=== PATIENT | male | born 1945 | race Caucasian/White ===

== ENCOUNTER → 2017-12-15 | Day surgery (SDC) | payer OTHER, SELFPAY | END | disposition home or self-care (01) | PROVIDERS: PCP Family Medicine; Visit Provider Surgery ==

== ENCOUNTER → 2018-08-04 07:59 | Outpatient (CLI) | payer OTHER, SELFPAY ==
[2018-08-04 08:17] LABS: Add Manual Diff / Slide Review NO; Basophils Percent Auto 0.9 % (0-2); Eosinophils Percent Auto 5.2 % (2-4); Hematocrit 48.1 % (41-53); Hemoglobin 16.1 g/dL (13.5-17.5); Lymphocytes Percent Auto 21.9 % (25-40); Mean Corpuscular HGB Conc 33.6 % (30-36); Mean Corpuscular Hemoglobin 31.4 PG (26-34); Mean Corpuscular Volume 93.6 fL (80-100); Monocytes Percent Auto 12.1 % (3-14); Neutrophils Absolute Auto 3800 /uL (3000-5900); Neutrophils Percent Auto 59.9 % (50-75); Platelet Count 248 X10^3/uL (150-400); Red Blood Cell Count 5.14 X10^6/uL (4.5-5.9); Red Cell Distribution Width 13.8 % (11.6-14.8); White Blood Cell Count 6.3 X10^3/uL (4.5-11.0)
[2018-08-04 09:18] LABS: HEMOLYSIS < 15 (0-50)
[2018-08-04 09:27] LABS: Alanine Aminotransferase 60 IU/L (21-72); Albumin 4.2 g/dL (3.5-5.0); Albumin Globulin Ratio 1.2 (1.0-2.8); Alkaline Phosphatase 132 U/L (38-126); Aspartate Aminotransferase 67 IU/L (17-59); BUN Creatinine Ratio 19.2 (6-22); Bilirubin Total 0.7 mg/dL (0.2-1.3); Blood Urea Nitrogen 23 mg/dL (9-20); Calcium 9.6 mg/dL (8.4-10.2); Carbon Dioxide 33 mmol/L (22-32); Chloride 102 mmol/L (98-107); Estimated Glomerular Filt Rate 59.2 mL/min (>60); Globulin 3.5 g/dL (1.7-4.1); Glucose 97 mg/dL (80-110); Potassium 4.8 mmol/L (3.4-5.1); Sodium 144 mmol/L (137-145); Total Protein 7.7 g/dL (6.3-8.2)
[2018-08-04 10:01] LABS: Thyroid Stimulating Hormone 1.52 uIU/mL (0.47-4.68)
== END ==
PROVIDERS: Visit Provider Registered Nurse
DX: R23.2 Flushing (principal)
CPT/HCPCS: 36415; 80053; 84403; 84443; 85025

== ENCOUNTER → 2018-08-07 08:03 | Outpatient (CLI) | payer OTHER, SELFPAY ==
[2018-08-10 12:48] LABS: 5-HIAA, Urine 9.5 mg/24 h (< OR = 6.0); Total Volume 1700 mL
== END ==
PROVIDERS: Visit Provider Registered Nurse
DX: R23.2 Flushing (principal)
CPT/HCPCS: 82570; 83497

== ENCOUNTER → 2018-08-22 08:10 | Outpatient (CLI) | payer OTHER, SELFPAY ==
--- NOTE | 2018-08-22 08:11 | DI.US.S_ITS ---
PROCEDURE: US ABDOMEN COMPLETE INDICATIONS: Follow-up CT abnormality TECHNIQUE: Real-time scanning was performed of the abdominal and retroperitoneal organs, with image documentation. COMPARISON: [facility], CT, ABDOMEN WITH CONTRAST, 11/22/2017, 10:25. [facility], CT, ABDOMEN/PELVIS WITH CONTRAST, 04/13/2017, 10:13. FINDINGS: Liver: Liver is normal in size. There is a 1.1 x 1.2 x 1.1 cm hyperechoic nodule in the left hepatic lobe, compatible with a hepatic hemangioma. Gallbladder: No gallstones. No gallbladder wall thickening, pericholecystic fluid or sonographic Tapia's sign. Biliary ducts: Intrahepatic bile ducts are non-dilated. Extrahepatic bile duct caliber measures 6 mm. Normal is 6-7 mm or less in diameter, or 10 mm or less post-cholecystectomy. Pancreas: Visualized portions of the pancreas are sonographically normal. Spleen: Spleen is normal in size and homogeneous in echotexture. Kidneys: There is a cortical cyst in the superior pole of the right kidney measuring 2.2 x 1.7 x 1.8 cm. This correlates with CT finding of a low density mass in the sme area. A 1.2 x 1.6 cm cyst is noted in the mid right kidney. There is a 2.2 x 2.5 cm exophytic cyst in the superior pole of the left kidney. Kidneys are normal in size and echotexture. Right kidney measures 11.6 cm long; left kidney measures 9.5 cm long. No hydronephrosis or nephrolithiasis. No solid masses. Aorta: Visualized aorta is normal in caliber at less than 3 cm. Iliacs: Proximal common iliac arteries are normal in caliber at less than 2.5 cm. IVC: Intrahepatic inferior vena cava is patent. Miscellaneous: No free abdominal fluid. IMPRESSION: 1. A 1.1 x 1.2 x 1.1 cm hyperechoic nodule in the left hepatic lobe. In a patient without known disease, it is compatible with a hepatic hemangioma. This likely correlates with CT finding of an enhancing nodule in the left hepatic lobe. The size of the nodule measures smaller on CT compared to ultrasound (7mm vs. 12 mm), which may be related to the timing of contrast enhancement. A followup ultrasound is suggested in 3-6 months. 2. The low density nodule in the superior pole the right kidney seen on CT is consistent with a cyst seen on ultrasound. Several other renal cysts are noted. Dictated by: Nathalie Tolbert M.D. on 08/22/2018 at 11:41 Approved by: Nathalie Tolbert M.D. on 08/22/2018 at 11:56
== END ==
PROVIDERS: Visit Provider Registered Nurse
DX: K76.89 Other specified diseases of liver (principal); N28.1 Cyst of kidney, acquired
CPT/HCPCS: 76700

== ENCOUNTER → 2019-01-01 09:37 | Outpatient (CLI) | payer MEDICARE, SELFPAY ==
--- NOTE | 2019-01-01 | DI.MRI.S_ITS ---
PROCEDURE: MR LUMBAR SPINE WO CON INDICATIONS: LUMBAR RADICULOPATHY TECHNIQUE: Noncontrast sagittal T1 spin echo and T2 fast echo, sagittal STIR, axial T1 and T2 fast spin echo through the lumbar spine. In cases with scoliosis, additional coronal T2 fast spin echo may be performed. COMPARISON: [facility], MR, L-SPINE WITHOUT CONTRAST, 04/07/2017, 20:00. FINDINGS: Image quality: Excellent. Alignment and Curvature: There is normal bony alignment. Bone Marrow: There are degenerative endplate signal changes scattered in lumbar spine. No acute vertebral body compression fractures. Spinal Cord: Conus medullaris terminates at the L1-L2 level. Visualized cord demonstrates normal signal and size. Paraspinous Soft Tissues: No paravertebral masses. There are bilateral renal cysts. L1-L2: Moderate loss of disc height and disc desiccation. There is circumferential posterior disc bulge. The central canal is mildly narrowed, unchanged. Moderate to severe bilateral foraminal stenosis, mildly increased compared to the last exam. L2-L3: Severe loss of disc height and disc desiccation. There is diffuse posterior disc bulge and disc osteophyte complex. The central canal is moderately narrowed. Moderate bilateral foraminal stenosis. There is no significant change from the last exam. L3-L4: Preserved disc height. Moderate disc desiccation. There is diffuse posterior disc bulge and disc osteophyte complex. Mild bilateral facet arthropathy and hypertrophy of ligamentum flavum. The central canal is moderately narrowed. Severe left and moderate right foraminal stenosis. There is no significant change from the last exam. L4-L5: Moderate loss of disc height and disc desiccation. There is diffuse posterior disc bulge and disc osteophyte complex. Mild bilateral facet arthropathy and hypertrophy of ligamentum flavum. The central canal is wein-zf-ohjjtinayt narrowed. Severe bilateral foraminal stenosis. There is no significant change from the last exam. L5-S1: Mild loss of disc height and disc desiccation. There is diffuse posterior disc bulge and disc osteophyte complex. The central canal is patent. Moderate bilateral foraminal stenosis. There is no significant change from the last exam. IMPRESSION: 1. Multilevel degenerative disc disease and facet arthropathy as described. 2. Moderate central canal stenosis at L2-L3, L3-L4 and L4-L5. 3. Multilevel foraminal stenosis as described, severe at L4-L5 bilaterally and to L3-L4 on the left. Dictated by: Nathalie Tolbert M.D. on 01/01/2019 at 16:38 Approved by: Nathalie Tolbert M.D. on 01/01/2019 at 18:23
== END ==
PROVIDERS: PCP Student in an Organized Health Care Education/Training Program; Visit Provider Physical Medicine & Rehabilitation Pain Medicine
DX: M51.16 Intervertebral disc disorders with radiculopathy, lumbar region (principal); M51.17 Intervertebral disc disorders with radiculopathy, lumbosacral region; M47.26 Other spondylosis with radiculopathy, lumbar region; M48.061 Spinal stenosis, lumbar region without neurogenic claudication; M48.07 Spinal stenosis, lumbosacral region
CPT/HCPCS: 72148

== ENCOUNTER → 2019-04-20 10:37 | Outpatient (CLI) | payer MEDICARE, SELFPAY ==
[2019-04-27 19:30] LABS: 5-HIAA, Urine 8.1 mg/24 h (< OR = 6.0); Total Volume 1950 mL
== END ==
PROVIDERS: PCP Student in an Organized Health Care Education/Training Program; Visit Provider Student in an Organized Health Care Education/Training Program
DX: E34.0 Carcinoid syndrome (principal)
CPT/HCPCS: 82570; 83497

== ENCOUNTER → 2019-05-22 09:40 | Oncology outpatient (ONC) | payer MEDICARE, OTHER, SELFPAY ==
[2018-08-23 15:16] VITALS: BP 126/65; PULSE 73; RESP 18; TEMP 36.7; O2SAT 93
--- NOTE | 2018-08-23 15:34 | ONC.CONS ---
History of Present Illness - Data of Consult Consult date: 08/23/18 Requesting Physician: Chasity KERN Primary Care Provider: Khurram Iniguez MD - Consult Narrative Narrative: Sherwin Gamino is a 73 year old male who is referred for further evaluation of possible carcinoid syndrome. The patient reports that for the last several months he has been bothered by hot flashes. They occur about 3 times a week and last for of the 30 min at a time. He cannot relate them to any specific activity or food. They seem to occur more frequently in the evenings. He notes that he has some sweating during the episodes and feels warm but does not have any flushing of the skin. He denies any palpitations chest pain dizziness or lightheadedness. He is not having any abdominal cramping or diarrhea. His weight has been stable. He has not noted any adenopathy. He otherwise feels well. He was seen by his primary physician who ordered 24 hr urine 5 HIAA among other tests. The 24 hr urine showed a slight increase at 9 mg per day with upper limit of normal being 6 mg a day. He underwent an CT scan and an ultrasound that showed a 1.1 x 1.2 x 1.1 cm hyperechoic nodule in the left hepatic lobe compatible with hemangioma. There was also a cyst in the superior pole the right kidney. His past medical history is notable for prior hernia surgery. He has had previous some colonoscopy and endoscopy. He has a history of a rectal cyst that was removed. He also has a history of spinal stenosis. His family history is negative for malignancy. Social history: He is . He works at the [employer]. He does not smoke. He does exercise regularly and mountain bike. He has occasional alcohol use. He does not find that the alcohol triggers his hot flashes. CC: Valerio Kurtz MD Home Medications and Allergies Home Medications Medication Instructions Recorded Confirmed Type pravastatin 40 mg tablet 40 mg PO HS #30 tab 08/16/18 Rx Allergies Allergy/AdvReac Type Severity Reaction Status Date / Time No Known Drug Allergies Allergy Verified 08/03/18 14:19 Medical History - Medical, Surgical, Family History Medical History: Medical History (Last Updated 08/01/18 @ 13:48 by Opal Salgado) Sensorineural hearing loss Juvenile rheumatic fever Surgical History: Surgical History (Last Updated 08/01/18 @ 13:47 by Opal Hanson Anesthesia History of carpal tunnel repair Onset Date: 07/2014 History of colonoscopy Onset Date: 2006 History of gastrointestinal surgery Onset Date: 2006 History of nasal surgery History of rectal surgery Onset Date: 03/2013 Status post hernia repair Status post knee surgery Status post knee surgery Family History: Family History Father Dementia Mother No problems noted. - Social History Smoking Status: Never smoker Review of Systems - Patient Self-Reported Symptoms SR Constitution: Fever SR respiratory issues: Cough SR Cardiovascular issues: Dizzy/lightheaded SR Gastrointestinal issues: Heartburn SR Musculoskeletal issues: Muscle pain or cramps, Back or neck pain Exam - Constitutional positive no acute distress, positive average body habitus - Routine HEENT Exam Head: Present: normocephalic, atraumatic Eye: Present: EOMI, PERRL. Absent: conjunctival icterus, scleral injection - Routine Neck Exam Present: supple. Absent: lymphadenopathy, thyromegaly - Routine Respiratory Exam Present: Clear to auscultation bilaterally. Absent: rales, wheezes - Routine Cardiovascular Exam Present: RRR, S1, S2. Absent: murmur - Routine Abdominal Exam Present: soft, normoactive bowel sounds. Absent: tenderness, organomegaly, mass - Routine Extremities Exam Absent: cyanosis, clubbing, edema - Routine Back/Spine Exam Back/Spine: Absent: paraspinal tenderness, vertebral tenderness - Routine Skin Exam Present: intact. Absent: erythema, petechiae, lesions, alopecia - Routine Neurological Exam Present: alert, oriented X3 - Routine Psychiatric Exam Present: normal affect, normal thought process Assessment and Plan (1) Carcinoid syndrome Current visit: Yes Status: Acute The patient is a 73-year-old man with some hot flashes. He does not have the other traditional symptoms of carcinoid syndrome including diarrhea palpitations or flushing. His 24 hr urine 5 HIAA is only modestly elevated. His CT scan and ultrasound showed what appears to be a probable hemangioma in the liver. I think it is reasonable to check an octreotide scan to confirm that that area does not light up on scan at that there is no evidence of a primary in the bowel. However, I think it is more likely that his 24 hr urine is a false positive. Most patients with carcinoid syndrome will have HIAA levels greater than 25 mg a day. Dietary factors are known to interfere in 5 HIAA testing. In addition a number of medications can falsely elevate levels including Tylenol or anti-inflammatories. He will return to clinic here after his octreotide scan. If that is negative, I do not think any further evaluation is likely to be helpful.
--- NOTE | 2018-09-19 11:57 | ONC.SCHED ---
BARBARA FROM [facility] CALLED AND ASKED FOR THE MOST RECENT NOTES FROM DR. POP. I FOUND THE MOST RECENT AND FAXED TO HER, I FIRST CHECKED WITH ADITHYA.
--- NOTE | 2018-09-26 13:25 | ONC.PN ---
PN -Subjective Interval history: Diagnosis: Elevated urine 5 HIAA Interval history: The patient is a 73-year-old man who was seen initially for concern about a possible carcinoid tumor. He underwent an evaluation because of hot flashes. He had a 24 hr urine 5 HIAA that was collected. He was minimally elevated at 9. He did not have any diarrhea are palpitation or flushing. CT scan did not show any definite evidence of tumor but there was a small lesion in the liver. Since his last visit here, he has not had any further hot flashes. He does have some occasional heartburn like symptoms. He has been using some Tums which seems to help. He denies any other changes in his health. - Patient Self-Reported Symptoms SR Constitution: Fever SR respiratory issues: Cough SR Cardiovascular issues: Dizzy/lightheaded SR Gastrointestinal issues: Heartburn SR Musculoskeletal issues: Muscle pain or cramps, Back or neck pain Home Medications and Allergies Home Medications Medication Instructions Recorded Confirmed Type pravastatin 40 mg tablet 40 mg PO HS #30 tab 09/19/18 Rx Allergies Allergy/AdvReac Type Severity Reaction Status Date / Time No Known Drug Allergies Allergy Verified 08/03/18 14:19 Exam - Constitutional positive no acute distress, positive average body habitus Assessment and Plan (1) Carcinoid syndrome Current visit: Yes Status: Acute The patient is a 73-year-old man with some hot flashes. He does not have the other traditional symptoms of carcinoid syndrome including diarrhea palpitations or flushing. His 24 hr urine 5 HIAA is only modestly elevated. His CT scan and ultrasound showed what appears to be a probable hemangioma in the liver. The octreotide scan did not demonstrate any activity in that area although it may have been too small to detect. I do not believe he has any convincing evidence of carcinoid tumor or carcinoid syndrome. I think it is reasonable to recheck his 24 hr urine in about 6 months. He did have some faint uptake in the thyroid that was nonspecific. He does not have any symptoms to suggest goiter or other thyroid problem. I think that that could just be followed expectantly by his primary physician. He will return to clinic in 6 months for follow-up. If his 5 HIAA is normal, we will probably discharge him from clinic at that time.
[2018-09-26 13:57] VITALS: BP 119/77; PULSE 65; RESP 18; TEMP 37; O2SAT 97
[2019-05-22 09:35] VITALS: BP 133/81; PULSE 45; RESP 16; TEMP 36.6; O2SAT 97
--- NOTE | 2019-05-22 09:51 | ONC.PN ---
PN -Subjective Interval history: Diagnosis: Elevated urine 5 HIAA Interval history: The patient is a 73-year-old man who was seen initially for concern about a possible carcinoid tumor. He underwent an evaluation because of hot flashes. He had a 24 hr urine 5 HIAA that was collected. He was minimally elevated at 9. He did not have any diarrhea are palpitation or flushing. CT scan did not show any definite evidence of tumor but there was a small lesion in the liver. Since his last visit here, he has not had any further hot flashes. He has not had any diarrhea or flushing. He denies any palpitations. He otherwise has felt quite well. He denies any new aches or pains. He has not noted any adenopathy. No shortness of breath or cough. Appetite and energy level have been good. He has not had any change in his weight upper down. He denies any other changes in his health. His only medication includes a proton pump inhibitor and pravastatin. - Patient Self-Reported Symptoms SR Constitution: Fever SR respiratory issues: Cough SR Cardiovascular issues: Dizzy/lightheaded SR Gastrointestinal issues: Nausea SR Genitourinary issues: Frequent urination SR Musculoskeletal issues: Back or neck pain SR Neuro issues: Lightheaded/dizzy, Numbness or tingling Home Medications and Allergies Home Medications Medication Instructions Recorded Confirmed Type coenzyme Q10 100 mg capsule 100 mg PO DAILY #30 cap 10/10/18 05/22/19 Rx pravastatin 40 mg tablet 40 mg PO HS #90 tab 03/21/19 05/22/19 Rx pantoprazole 40 mg tablet,delayed 40 mg PO DAILY #30 tab 04/19/19 05/22/19 Rx release Allergies Allergy/AdvReac Type Severity Reaction Status Date / Time No Known Drug Allergies Allergy Verified 04/19/19 10:15 Exam Vital signs: Vital Signs Temp Pulse Resp BP Pulse Ox 05/22/19 09:35 97.9 F 45 L 16 133/81 97 Intake and Output 05/21/19 05/22/19 05/22/19 23:59 07:59 15:59 Other: Weight 87.7 kg 86.8 kg Patient Weight 05/22/19 23:59 Weight 86.8 kg - Constitutional positive no acute distress, positive average body habitus - Routine HEENT Exam Head: Present: normocephalic, atraumatic Eye: Present: EOMI, PERRL. Absent: conjunctival icterus, scleral injection ENT: Present: mucous membranes moist, oropharynx clear - Routine Neck Exam Present: supple. Absent: lymphadenopathy, thyromegaly - Routine Respiratory Exam Present: Clear to auscultation bilaterally. Absent: rales, wheezes - Routine Cardiovascular Exam Present: RRR, S1, S2. Absent: murmur - Routine Abdominal Exam Present: soft, normoactive bowel sounds. Absent: tenderness, organomegaly, mass - Routine Extremities Exam Absent: cyanosis, clubbing, edema - Routine Back/Spine Exam Back/Spine: Absent: vertebral tenderness - Routine Skin Exam Present: intact. Absent: petechiae, rash - Routine Neurological Exam Present: alert, oriented X3 Assessment and Plan (1) Carcinoid syndrome Current visit: Yes Status: Acute The patient is a 73-year-old man with a history of hot flashes that have since resolved. He is found to have a minimally elevated urine 5 HIAA. His scanning did not show any obvious tumor. Since his last visit, his symptoms have resolved and not recurred. His 5 HIAA level has improved although still not quite normal. I think it is reasonable to check again in about 1 year. He will return to clinic here for follow-up at that time.
== END ==
PROVIDERS: PCP Student in an Organized Health Care Education/Training Program
DX: E34.0 Carcinoid syndrome (principal)
CPT/HCPCS: 99204; 99213; 99214

== ENCOUNTER → 2020-03-06 14:07 | Outpatient (CLI) | payer MEDICARE, SELFPAY ==
--- NOTE | 2020-03-06 | DI.MRI.S_ITS ---
PROCEDURE: MR LUMBAR SPINE WO CON INDICATIONS: Lumbar stenosis TECHNIQUE: Noncontrast sagittal T1 spin echo and T2 fast echo, sagittal STIR, axial T1 and T2 fast spin echo through the lumbar spine. In cases with scoliosis, additional coronal T2 fast spin echo may be performed. COMPARISON: [facility], CT, ABDOMEN WITH CONTRAST, 11/22/2017, 10:25. [facility], MR, MR LUMBAR SPINE WO CON, 01/01/2019, 10:10. [facility], MR, L-SPINE WITHOUT CONTRAST, 04/07/2017, 20:00. FINDINGS: Image quality: Excellent. Alignment and Curvature: S-shaped scoliotic curvature is seen. Minimal retrolisthesis is seen at L1-L2, L2-L3, and L3-L4. Mild anterolisthesis is seen at L5-S1. Bone Marrow: Marrow is of normal overall signal. No acute vertebral body compression fractures. Spinal Cord: Conus medullaris terminates at the L1 level. Visualized cord demonstrates normal signal and size. Paraspinous Soft Tissues: No paravertebral masses. A complex cyst is seen along the posterior aspect of the left kidney with intermediate T2 signal, which measures up to 2 cm. T12-L1: Normal appearance. L1-L2: Moderate loss of disc height is seen. Loss of disc signal is seen. Bridging endplate osteophytes are seen. Moderate generalized disc bulge is seen. There is moderate right-sided and moderate to severe left-sided neural foraminal narrowing seen. When comparison is made with the prior examination, these findings are similar. L2-L3: Moderate to severe loss of disc height and disc signal can be seen. Reactive marrow endplate changes are seen, which demonstrate mixed T1 weighted and T2-weighted signal, and are attributed to a combination of edema and fatty metaplasia (Modic type I and Modic type II changes). Moderate disc bulge is seen. Mild to moderate facet hypertrophy is seen. There is moderate to severe right-sided and moderate left-sided neural foraminal narrowing seen. There is a degree of compression seen upon the exiting nerve roots. At least moderate central canal narrowing is seen. No significant change from the prior. L3-L4: The disc height is well-preserved. Loss of disc signal is seen at this level. At least moderate disc bulge is seen, which is eccentric to the right. There is a mild central disc protrusion seen. Moderate facet joint hypertrophy is seen. There is moderate to severe bilateral neural foraminal narrowing seen. There is a degree of compression seen upon the exiting nerve roots. Moderate to severe central canal narrowing is seen at this level. Slight progression of degenerative change compared to the prior. L4-L5: At least moderate loss of disc height and disc signal can be seen. There is a focal annular fissure seen posteriorly. At least moderate disc bulge is seen, which is eccentric to the right. Moderate to prominent facet hypertrophy is seen. There is moderate to severe bilateral neural foraminal narrowing seen, right worse than left. There is a degree of compression seen upon the exiting nerve roots. Moderate central canal narrowing is seen. No significant change from the prior. L5-S1: Mild loss of disc height is seen. Loss of disc signal is seen. Mild generalized disc bulge is seen. There is a central/left disc extrusion is seen, with superior migration of the disc material. Mild facet joint hypertrophy is seen. Moderate to severe bilateral neural foraminal narrowing is seen, left worse than right. There is a degree of compression seen upon the exiting nerve roots. Mild central canal narrowing is seen. The disc extrusion is new compared to the prior examination. IMPRESSION: Multiple levels of lumbar spine degenerative change are seen, which have progressed at L3-L4 and L5-S1 compared to the prior MRI. There is now seen a central/left disc extrusion at L5-S1. Several levels of moderate to severe neural foraminal narrowing can be seen, with associated exiting nerve root compression. Dictated by: Corwin Mcdaniel M.D. on 03/06/2020 at 13:59 Approved by: Corwin Mcdaniel M.D. on 03/06/2020 at 14:08
== END ==
PROVIDERS: PCP Student in an Organized Health Care Education/Training Program; Referring Provider Neurological Surgery; Visit Provider Neurological Surgery
DX: M51.27 Other intervertebral disc displacement, lumbosacral region (principal); M47.816 Spondylosis without myelopathy or radiculopathy, lumbar region; M47.817 Spondylosis without myelopathy or radiculopathy, lumbosacral region; M48.061 Spinal stenosis, lumbar region without neurogenic claudication; M48.07 Spinal stenosis, lumbosacral region
CPT/HCPCS: 72148

== ENCOUNTER 2020-09-01 22:51 | Emergency (ER) | payer MEDICARE, SELFPAY ==
[2020-09-01 22:55] VITALS: BP 143/82; PULSE 54; RESP 18; TEMP 36.1; O2SAT 98; BMI 27.3
--- NOTE | 2020-09-01 23:11 | ED_ITS ---
HPI - Epistaxis General Chief complaint: Nasal Problem Stated complaint: NOSE BLEED NON STOP Time Seen by Provider: 09/01/20 22:57 Source: patient Mode of arrival: Ambulatory Limitations: no limitations History of Present Illness HPI Narrative: Patient here with . Complains 2 hours ago started nose bleed on the left side. He used a small make a pad and packed it into the left nostril and able to stop the bleeding. Patient is not not not on any blood thinners. Not on any blood pressure medication. Is on cholesterol medication. Was riding his bicycle in the cold dry air earlier this evening. No dizziness and syncope no dyspnea MD complaint: epistaxis Location: left nostril Related Data Previous Rx's Medication Instructions Recorded pravastatin 40 mg tablet 40 mg PO HS #90 tab 05/22/20 pantoprazole 20 mg tablet,delayed 20 mg PO BID #60 tab 06/16/20 release Allergies Allergy/AdvReac Type Severity Reaction Status Date / Time No Known Drug Allergies Allergy Verified 08/19/20 16:29 Review of Systems Review of Systems Narrative: GENERAL: Denies chills, fatigue, malaise, fever, sweats. HEENT: Denies sinus pain, ear pain, sore throat, difficulty swallowing, complains epistaxis RESPIRATORY: Denies dyspnea, cough CARDIOVASCULAR: Denies chest pain, palpitations, edema, GASTROINTESTINAL: Denies nausea, vomiting, abdominal pain, diarrhea, constipa tion, melena. : Denies dysuria, frequency, hematuria MUSCULOSKELETAL: denies muscle or bony pain SKIN: Denies rash, skin lesions NEUROLOGIC: Denies weakness, headache, numbness, change in speech, confusion PSYCHIATRIC: No SI or HI or hallucinations ROS Unobtainable: All systems reviewed & are unremarkable except as noted in HPI and below Patient History Medical History Juvenile rheumatic fever (Resolved) Sensorineural hearing loss (Chronic) Surgical History Anesthesia (Resolved) History of carpal tunnel repair (Resolved 07/2014) History of colonoscopy (Resolved 2006) History of gastrointestinal surgery (Resolved 2006) History of nasal surgery (Resolved) History of rectal surgery (Resolved 03/2013) Status post hernia repair (Resolved) Status post knee surgery (Resolved) Status post knee surgery (Resolved) Family History Father Dementia Mother No problems noted. Social History Smoking Status: Never smoker Smoking Status: Never smoker alcohol intake frequency: 0-2 drinks per day Substance Use Type: does not use Exam Narrative Exam Narrative: GENERAL: patient appears stated age. Well-nourished, well- developed patient, in no distress, not toxic not dyspneic HEAD: Normocephalic. EYES: Pupils equal round and reactive. No scleral icterus. No injection no discharge ENT: Mucous membranes moist. No drooling no tongue elevation no trismus no malocclusion, right nostril clear no blood. Posterior pharynx there is no blood or blood clots or bleeding. Left naris examination there is no blood or bleeding. Packing removed, anterior medial wall likely site of previous bleeding. Slight patch of erythema. There is no blood or bleeding or blood clots in the left naris SKIN: Warm and dry PSYCH: Not anxious, is cooperative Initial Vital Signs Initial Vital Signs: Vital Signs Temperature 97.0 F L 09/01/20 22:55 Pulse Rate 54 L 09/01/20 22:55 Respiratory Rate 18 09/01/20 22:55 Blood Pressure 143/82 H 09/01/20 22:55 Pulse Oximetry 98 09/01/20 22:55 Course Course Course Narrative: No rebleed here. Orders Ordered: Discontinued Medications Oxymetazoline HCl (Nasal Decongestant) 2 sprays NASAL NOW ONE Stop: 09/01/20 23:53 Last Admin: 09/01/20 23:54 Dose: 2 sprays Documented by: RAJWINDER Reevaluation(s) Reevaluation #1: Up and walking in the hallway. Bent [id number]-[id number] of the sink in the room without any bleeding. Time: 23:52 Vital Signs Vital signs: Vital Signs - 8 hr 09/01/20 22:55 09/01/20 23:55 Temperature 97.0 F L Pulse Rate 54 L 65 Respiratory Rate 18 14 Blood Pressure 143/82 H 118/75 Pulse Oximetry 98 97 MDM - Epistaxis Differential Diagnosis Differential diagnosis: Likely anterior epistaxis MDM Narrative Medical decision making narrative: At this time no blood work indicated. Patient is not on any blood thinners. No dizziness or syncope from epistaxis. Blood pressure noted. Will recheck again at time of discharge. Appropriate for observation here and discharge home. Not requiring rhino rocket or further packing at this time. Will try home support care with nasal clamp and if worse, patient understands will come back for silver nitrate cautery or placement of a rhino rocket Discharge Plan Departure Patient Disposition: Home Clinical Impression: Epistaxis Discharge Date/Time: 09/01/20 23:56 Activity Restrictions/Additional Instructions: Do not pick at the nose or blow the nose. Use nasal clamp 20 minutes if rebleeding and if it does not stop return here. Call Dr. kaplan office tomorrow for office recheck in a week. May use cssf-gsz-nkwbige saline nasal spray to keep. Nose moist. Return if worse or if any questions or concerns. Prescriptions: No Action pravastatin 40 mg tablet 40 mg PO HS Qty: 90 RF: 1 pantoprazole 20 mg tablet,delayed release (DR/EC) 20 mg PO BID Qty: 60 RF: 5 Referrals: Khurram Iniguez MD [Primary Care Provider] - Khurram Kaplan MD [Physician] -
--- NOTE | 2020-09-01 23:29 | PC.NURSE ---
Dr Castellon removed packing and placed nasal clamp; after 10 mintes, pt removed. No bleed. Pt ambulated in hallway with no recurrance of bleed.
[2020-09-01] MEDS: OXYMETAZOLINE NASAL SPRAY 15 ML 2 SPRAYS NASAL (23:54)
[2020-09-01 23:55] VITALS: BP 118/75; PULSE 65; RESP 14; O2SAT 97
== END 2020-09-01 23:56 | disposition home or self-care (01) ==
PROVIDERS: Emergency Provider Emergency Medicine; PCP Student in an Organized Health Care Education/Training Program
DX: R04.0 Epistaxis (principal)
CPT/HCPCS: 99282; A9270

== ENCOUNTER → 2020-12-11 10:45 | Outpatient (CLI) | payer MEDICARE, SELFPAY ==
[2020-12-11 11:58] LABS: Add Manual Diff / Slide Review NO; Basophils Absolute Auto 100 /uL (0-100); Basophils Percent Auto 1.3 % (0-2); Eosinophils Absolute Auto 200 /uL (0-450); Eosinophils Percent Auto 3.8 % (2-4); Hematocrit 46.7 % (41-53); Hemoglobin 15.7 g/dL (13.5-17.5); Lymphocytes Absolute Auto 1400 /uL (1100-4500); Lymphocytes Percent Auto 24.9 % (25-40); Mean Corpuscular HGB Conc 33.7 % (30-36); Mean Corpuscular Hemoglobin 31.9 PG (26-34); Mean Corpuscular Volume 94.8 fL (80-100); Monocytes Absolute Auto 700 /uL (0-900); Monocytes Percent Auto 11.7 % (3-14); Neutrophils Absolute Auto 3300 /uL (1500-7000); Neutrophils Percent Auto 58.3 % (50-75); Platelet Count 223 X10^3/uL (150-400); Red Blood Cell Count 4.93 X10^6/uL (4.5-5.9); Red Cell Distribution Width 13.5 % (11.6-14.8); White Blood Cell Count 5.6 X10^3/uL (4.5-11.0)
[2020-12-11 12:15] LABS: Hemoglobin A1C% w Est Avg Glu 5.6 % (4.0-6.0)
[2020-12-11 12:43] LABS: BUN Creatinine Ratio 13.5 (6-22); Blood Urea Nitrogen 15 mg/dL (9-20); Calcium 9.2 mg/dL (8.4-10.2); Carbon Dioxide 31 mmol/L (22-32); Chloride 103 mmol/L (98-107); Estimated Glomerular Filt Rate > 60.0 mL/min (>60); Glucose 96 mg/dL (80-110); HEMOLYSIS < 15 (0-50); Potassium 5.3 mmol/L (3.4-5.1); Sodium 135 mmol/L (137-145)
== END ==
PROVIDERS: PCP Student in an Organized Health Care Education/Training Program; Referring Provider Orthopaedic Surgery; Visit Provider Orthopaedic Surgery
DX: Z01.818 Encounter for other preprocedural examination (principal); R73.9 Hyperglycemia, unspecified; M25.562 Pain in left knee; Z01.812 Encounter for preprocedural laboratory examination
CPT/HCPCS: 36415; 80048; 83036; 85025; 93005; 93010

== ENCOUNTER → 2020-12-20 11:12 | Outpatient (CLI) | payer MEDICARE, SELFPAY ==
[2020-12-20 13:28] LABS: COVID19 -Nasal RAPID Negative (Negative)
== END ==
PROVIDERS: PCP Student in an Organized Health Care Education/Training Program; Visit Provider Student in an Organized Health Care Education/Training Program
DX: Z01.812 Encounter for preprocedural laboratory examination (principal); Z20.822 Contact with and (suspected) exposure to COVID-19
CPT/HCPCS: 87635; C9803

== ENCOUNTER 2020-12-22 06:13 | Day surgery (SDC) | payer MEDICARE, SELFPAY ==
[2020-12-22] VITALS (12 sets, daily range): BP systolic 92–128; BP diastolic 51–77; PULSE 55–67; RESP 12–18; TEMP 35.7–36.7; O2SAT 92–99; BMI 27.4; BMI 28.3
--- NOTE | 2020-12-22 06:31 | DI.RAD.S_ITS ---
PROCEDURE: XR KNEE LT 1TO2V INDICATIONS: post op total knee TECHNIQUE: 2 view(s) of the knee acquired. COMPARISON: None. FINDINGS: Bones: Patient is status post knee joint arthroplasty. Hardware components are in expected positions. Visualized bony structures are intact. Soft tissues: Scattered vascular calcifications IMPRESSION: Expected postoperative appearance Dictated by: Anselmo Xavier M.D. on 12/22/2020 at 10:42 Approved by: Anselmo Xavier M.D. on 12/22/2020 at 10:44
[2020-12-22] MEDS: CELECOXIB 200 MG CAPSULE PO (07:03)
[2020-12-22] MEDS: PREGABALIN 75 MG CAPSULE PO (07:03)
[2020-12-22] MEDS: ACETAMINOPHEN 325 MG TABLET 975 MG PO (07:03)
--- NOTE | 2020-12-22 07:31 | PM.PREOP ---
Pre-operative Note COVID-19 COVID-19 status: Negative Result date/Date tested (Pos, Neg/Pending): 12/20/20 Interval Note History & Physical reviewed/Exam performed by Physician: Yes Changes to H&P: No
--- NOTE | 2020-12-22 07:32 | PM.OP.1 ---
Operative Date/Time/Diagnoses Date of procedure: 12/22/20 Time of procedure: 09:35 Pre-op diagnosis: Left knee osteoarthritis Post-op diagnosis: same Procedure & Clinicians Procedure: Left total knee replacement Same procedure as scheduled: Yes Indications: The patient has had progressively worsening left knee pain with radiographic changes consistent with arthritis. Non-operative management has failed and the patient has requested total knee replacement. The risks, benefits and alternatives to surgery were discussed with the patient prior to proceeding. Risks discussed included, but were not limited to, failure to relieve pain, stiffness, infection, nerve damage, deep venous thrombosis, pulmonary embolism, stroke, coma, heart attack, permanent paralysis and , as well as the potential need for eventual revision of the prosthetic. Surgeon: John Zaragoza Software Engineer Web Services: Jacky Barros Click Yes if Unassisted: No Anesthesia Type: General, Spinal and Local Operative Notes Findings: Severe tricompartmental osteoarthritis worst in the lateral compartment. Closure Type: primary Specimen(s): none sent Prosthetic devices, grafts, tissues, transplants, or devices: Implants used in this procedure were manufactured by the [employer] and included the BCS II Journey total knee replacement with a size 7 left cobalt chromium femoral component, a size 6 left non porous tibial base plate, a 9 mm cross-linked polyethylene insert and a 35 mm oval Jeni II patellar component. Applied: implant(s) Estimated Blood Loss (mL): 25 Blood products transfused: none Tourniquet time (min): 53 Procedure in detail: The patient was seen in the pre-operative area, where the left knee was identified as the operative site and this was marked with my initials. The patient received pre-operative antibiotics, and was taken to the operating room and placed on the operative table in the supine position. After satisfactory anesthesia, a time clock mechanic out was performed. The left leg was encircled with a tourniquet about the proximal thigh, and the leg was prepared from the toes to the tourniquet with ChloroPrep in the usual fashion and draped through sterile drapes. The leg was elevated and exsanguinated with Eschmark bandage and the tourniquet inflated to 250 mmHg pressure. The knee was approached through an approximately 18 cm incision centered over the patella and carried into the knee through a medial parapatellar arthrotomy. The anterior osteophytes and soft tissues were removed. The rotational landmarks of [place]'s line and the transepicondylar axis were marked on the femur with electrocautery, and intramedullary guide holes for the femur and tibia were created. The distal femoral cut was made in 6 degrees of valgus using the intramedullary guide at the primary cut setting. The proximal tibial cut was then made using the intramedullary guide, taking 7 mm of bone off the less involved medial side. The extension gap was checked and the rotation of the femoral component confirmed with the gap balancing blocks. The anterior, posterior and chamfer cuts were then made. The posterior osteophytes and soft tissues were then removed. The posterior capsule was injected with part of a mixture of 60 ml 0.25% Marcaine mixed with 20 ml Exparel and 4 mg of morphine for post-operative pain control. The remainder of this mixture was injected into the capsule and subcutaneous tissues during cement curing. The tibia was prepared with the rotation set by an extra medullary guide. Trial tibial and femoral components were then placed and the intercondylar notch cut through the femoral trial. Range of motion was 0-135 degrees, with good stability throughout the range. The patella was then cut to accommodate the patellar prosthetic. There was no need for a lateral release. The trials were then removed, and the femoral hole plugged with a bone plug. The bone was prepared with pulsatile lavage, and dried with a sponge. Cement was applied and the final prosthetics placed. Excess cement was removed during and after cement curing. After confirming there was no extruded cement posteriorly, the final tibial insert was placed. The knee was copiously irrigated and the tourniquet deflated. Hemostasis was obtained. The capsule was closed with interrupted # 2 polyester sutures. The subcutaneous layer was closed with 3-0 Vicryl, and the skin with a running 3-0 V-Lock suture and Dermabond. An Aquacel Ag dressing was applied and the patient was taken to recovery having tolerated the procedure well. Complications: none Post-operative Condition: stable Disposition: PACU Plan for aftercare: The patient will be maintained on a standard total knee replacement protocol with weight bearing as tolerated. The patient will receive aspirin and sequential compression devices for DVT prophylaxis. The patient will be discharged home when safe for the home environment.
[2020-12-22] MEDS: CEFAZOLIN 2 GM/100 ML FROZ.PIGGY IV (07:42)
[2020-12-22] MEDS: TRANEXAMIC ACID 1,000 MG VIAL 1000 MG INJ ×2 (08:00→09:20)
--- NOTE | 2020-12-22 08:14 | SUR.OPER ---
Supine on padded OR bed. Pillow under head, arms secured on padded armboards <90 degree abduction. Safety belt across torso. Non-operative leg secured with tape over blanket over lower leg. Operative leg secured in DeMayo/Gage positioner. Foam padded brace at thigh of operative leg.
[2020-12-22] MEDS: BUPIVACAINE LIPOSOME 266 MG/20 ML VIAL INJ (08:24)
[2020-12-22] MEDS: MORPHINE 4 MG/ML INJ INJ (08:25)
[2020-12-22] MEDS: BUPIVACAINE 0.5% W/ EPI (PF) 30 ML VIAL INJ (08:26)
[2020-12-22] MEDS: LACTATED RINGERS 1,000 ML 100 ML IV ×2 (10:51→19:58)
[2020-12-22] MEDS: IBUPROFEN 400 MG TABLET PO ×2 (12:47→19:14)
[2020-12-22] MEDS: ACETAMINOPHEN 325 MG TABLET 650 MG PO (14:49)
--- NOTE | 2020-12-22 15:00 | PT.IIE ---
Current Diagnoses Unilateral primary osteoarthritis, left knee (12/22/20) Surgery Performed Operation Date: 12/22/20 07:45 Actual Procedures p Total Knee Arthroplasty(Left) - John Zaragoza MD Surgical History (Last Updated 12/10/20 @ 10:03 by Marlene Jarquin, RN) Anesthesia History of carpal tunnel repair (07/2014) History of colonoscopy (2006) History of gastrointestinal surgery (2006) History of lumbar laminectomy History of nasal surgery History of rectal surgery (03/2013) Previous back surgery (~2019) Status post hernia repair Status post knee surgery Status post knee surgery Medical History (Last Updated 12/10/20 @ 10:01 by Marlene Jarquin, SHADE) Juvenile rheumatic fever Low back pain Sensorineural hearing loss Unilateral primary osteoarthritis, left knee Physical Therapy Inpatient Evaluation/Re-Eval M1 PT/OT-IP Prior Functional Status Start: 12/22/20 13:09 Freq: NEEDED Status: Active Protocol: Document 12/22/20 14:22 AW (Rec: 12/22/20 14:28 AW [id number]) Medical Review Prior Functional Status Medical History Reviewed Yes Communication WNL. Pt is an effective verbal communicator. Mobility and Gait Pt is independent with all mobility. He remains active by walking, mountain biking ( with pedal assist), and skiing . Activities of Daily Living and IADL's Independent. Social History Household Members spouse Living Arrangements House Number of Floors (Floors) Two Floors Number of Stairs To Enter/Railing? 2 ADAM through the garage with grab bars installed on both sides which can be reached simultaneously. Pt plans to stay on his main level until strong enough to manage stairs to upper level. Home Environment High Toilet Home Equipment Front Wheel Walker,Straight Cane,Raised Toilet Seat Without Armrests,Hand Held Shower,Long Handled Shoe Horn Employment Status Retired Additional Social History Comment Pt's bed is tall. He typically exits to his left. Pt lives in [place] with his spouse, Jessica, who will be available and able to assist when pt goes home. M2 PT-IP Current Condition Start: 12/22/20 13:09 Freq: NEEDED Status: Active Protocol: Document 12/22/20 14:45 AW (Rec: 12/22/20 15:00 AW [id number]) Physical Therapy Current Condition Current Condition Evaluation Date 12/22/20 Treatment Diagnosis L TKA; difficulty in walking Onset Date 12/22/20 Weight Bearing Status Weight Bearing Status Weight Bear as Tolerated M3 PT-IP Subjective Start: 12/22/20 13:09 Freq: NEEDED Status: Active Protocol: Document 12/22/20 14:45 AW (Rec: 12/22/20 15:00 AW [id number]) Subjective Physical Therapy Visit Type Type Initial Evaluation Visit Start Time 13:22 Visit Stop Time 14:45 Total Visit Minutes 25 Notes Pt seen for split visits 1322- 1332 and [id number]. Number of SIZE CUTTER Visits 0 Physical Therapy Visit Comments Patient Comments Pt was reluctant to mobilize at first due to numbness but had sensation returning on second visit and was willing to work with PT. Patient Goals Return home after surgery and eventual return to [facility] and skiing. Therapy Pain Assessment Pain When Pain Assessed During Mobility Pain Present Pain Present Denied Pain M4 PT-IP Mobility and Gait Start: 12/22/20 13:09 Freq: NEEDED Status: Active Protocol: Document 12/22/20 14:45 AW (Rec: 12/22/20 15:00 AW [id number]) PT-Bed Mobility Assessment Supine to Sit Supine to Sit Standby Assistance Scooting Scooting to Edge of Bed Standby Assistance Scooting Up and Down in Bed Standby Assistance PT-Transfer Assessment Sit to and From Stand Sit to and from Stand Contact Guard Assistance,Use of Upper Extremities Equipment Transfer Assistive Device Gait Belt,Front Wheeled Walker Orthotic/Prosthetic Devices or Brace: No Transfers Transfer Destination Chair Transfer Technique Stand Step Pivot Transfer Ability Level of Assist Contact Guard Assistance,Use of Upper Extremities Comments Mobility Comments Pt was reclined in bed as PT arrived. He completed supine to sit and sat EOB SBA. BP was 123/69 HR 65. Pt denied any nausea or lightheadedness. He stood from the bed CGA and transferred to the chair using FWW. He was slightly impulsive and required cues to keep the walker with him throughout the transfer until ready to sit. Pt then stood from the chair and ambulated in the halls for a total of 120 feet with FWW SBA. Pt kept appropriate distance from trunk to walker frame and responded well to cues for more equal weightbearing. On return to the room, pt's arrived. He transferred back to the chair and was left there with legs elevated, fresh ice pack applied. Call light and all needs were placed within reach. Gait Assessment Gait Gait Assistance Required: Standby Assistance Distance (Feet) 120 Able to Maintain Weight Bearing Status Yes During Gait Assistive Devices Assistive Device Gait Belt,Front Wheeled Walker Orthotic/Prosthetic Devices or Brace: No Gait Deviations General Gait Pattern Antalgic,Decreased Stride Length,Decreased Feet Clearance,Step-to Gait Factors Limiting Gait Function Factors Limiting Gait Function Decreased Sensation,Decreased Strength,Limited Range of Motion,Pain,Poor Safety Awareness Comments Gait Comments See mobility comments for details. Stair Climbing Assessment Comments Stair Climbing Comments Not assessed. PT-Balance Assessment Sitting Balance and Reactions Static Sitting Balance Ability Normal Dynamic Sitting Balance Ability Normal Standing Balance and Reactions Static Standing Balance Ability Good Dynamic Standing Balance Ability Good Device Used FWW M5 PT-IP Objective Assessments Start: 12/22/20 13:09 Freq: NEEDED Status: Active Protocol: Document 12/22/20 14:45 AW (Rec: 12/22/20 15:00 AW [id number]) Orientation Orientation/Cognition Level of Alertness Alert Orientation Name,Day of Week,Place, Situation Language Function Ability No Deficits Noted Safety Awareness Decreased Safety Awareness Memory Description No Deficits Noted Gross Range of Motion Lower Extremity ROM Assessment Left Impaired Strength Lower Extremity Strength Assessment Left Impaired Hip 4-/5 Knee 3/5 Comments Strength Comments RLE grossly 5/5 Sensation Assessment Sensation Gross Sensation Right LE Impaired,Left LE Impaired Light Touch Impaired Sensation Description Numbness M6 PT-IP Treatment Start: 12/22/20 13:09 Freq: NEEDED Status: Active Protocol: Document 12/22/20 14:45 AW (Rec: 12/22/20 15:00 AW [id number]) Physical Therapy Treatment Exercises Exercises Ankle Pumps,Quad Sets,Heel Slides,Passive Knee Extension Hang,Seated Knee Flexion/ Extension Education Education Provided Precautions,Weight Bearing Status,Post-Op Packet,Safety Other Treatments Other Treatment Performed Provided education on role of PT, plan of care, weightbearing status, and safe use of FWW. M7 PT-IP Assessment and Plan Start: 12/22/20 13:09 Freq: NEEDED Status: Active Protocol: Document 12/22/20 14:45 AW (Rec: 12/22/20 15:00 AW [id number]) PT Summary Assessment and Plan Potential Rehabilitation Potential Excellent Status of Condition at Evaluation Evolving Summary Impairments Pain,ROM,Strength,Balance, Sensation,Bed Mobility, Transfers,Gait Assessment Summary Sherwin is an active 75 yo man seen for PT evaluation on POD0 following L TKA. He is independent in all regards at baseline. On evaluation, pt required SBA to CGA for all mobility including ambulation with FWW. PT anticipates he will be safe to discharge home with assist and outpatient PT once medically cleared. He will complete stair training prior to discharge. Outpatient PT is already scheduled. Goals Bed Mobility Goal Independent Transfer Goal Independent,Front Wheeled Walker Gait Goal Independent,Front Wheel Walker Gait Distance 200 Other Goals - up/down 2 steps with B rails SBA Days to Meet Goals 2 Frequency of Treatment Frequency Of Treatment Twice a Day Treatment Plan Physical Therapy Treatment Plan Bed Mobility Training,Transfer Training,Gait Training, Therapeutic Exercise,Balance Retraining,Post Op Education, Discharge Planning,Hot or Cold Pack Other Recommendations and Next Treatment ambulation, stairs Focus Recommendations To Nursing Amount of Assist Needed 1 Person Assist Discharge Recommendations PT Discharge Recommendations Home with Assistance, Outpatient PT Transportation Needs at Discharge Private Vehicle
[2020-12-22] MEDS: ONDANSETRON 4 MG/2 ML INJ IV (17:06)
[2020-12-22] MEDS: METOCLOPRAMIDE 10 MG/2 ML INJ 5 MG IV (19:56)
--- NOTE | 2020-12-22 21:21 | PC.NURSE ---
Evening Shift Note- Patient alert and oriented and able to make needs known to staff. No complaints of pain or discomfort. Patient does complain of nausea and vomiting. Held 2100 PO medications due to vomiting. IV Zofran and IV Reglan given as directed. Patient continued to have issues with N/V. Patient straight cath'ed at 1615 do to no void since 0600 this morning. [id number] bladder scanned, 358cc's noted. Patient attemopted to void with ni success. Straighted cath'ed with 550cc's out. Patient tolertated. Safety measures in place. Call [place] and phone within reach. Will continue to monitor.
[2020-12-23] VITALS: BP 104/63; PULSE 70; RESP 18; TEMP 36.4; O2SAT 95
[2020-12-23] MEDS: IBUPROFEN 400 MG TABLET PO ×3 (00:28→08:45)
[2020-12-23 03:38] VITALS: BP 100/58; PULSE 66; RESP 16; TEMP 36.6; O2SAT 94
[2020-12-23 05:31] LABS: Hematocrit 40.5 % (41-53); Hemoglobin 13.3 g/dL (13.5-17.5)
--- NOTE | 2020-12-23 06:13 | PC.NURSE ---
12/23/2020 @ 0600 Patient voided in urinal 30CC. Offered to patient to ambulate to the bathroom with FWW. Patient refused at this time. Patient stated that when he feels the urge again to void that he will let us know. Reported to Henna Myles RN
[2020-12-23 07:16] VITALS: BP 101/62; PULSE 64; RESP 16; TEMP 37.1; O2SAT 95
--- NOTE | 2020-12-23 07:37 | P.PN_ITS ---
Subjective Subjective Date Patient Seen: 12/23/20 Time Patient Seen: 07:37 Interval history: POD #1 s/p L TKA with Dr. Zaragoza. Patient's pain is well controlled with Tylenol and ibuprofen. He did have vomiting yesterday but this has resolved this morning. He did have to be straight cathed last night. No difficulty voiding this morning. Exam Vital Signs (past 8 hours): - 12/23/20 00:00 12/23/20 03:38 Temperature 97.5 F L 97.9 F Pulse Rate 70 66 Respiratory Rate 18 16 Blood Pressure 104/63 100/58 L Pulse Oximetry 95 94 Oxygen Delivery Method Room Air Oxygen Flow Rate 0 Narrative Exam Narrative: Patient lying in bed no acute distress. He is alert oriented x3. Calves are soft, compressible, nontender bilaterally. SCDs on and functioning. He is able to actively dorsiflex plantar flex. Left knee has Fabian wrap in place. Dressing is CDI. Dorsalis pedis pulses symmetrical. Objective Labs Result Diagrams: 12/23/20 04:50 Labs: Laboratory Results - last 24 hr 12/23/20 04:50 Hgb 13.3 L Hct 40.5 L [facility] Medical History Juvenile rheumatic fever Low back pain Sensorineural hearing loss Unilateral primary osteoarthritis, left knee Surgical History Anesthesia History of carpal tunnel repair (07/2014) History of colonoscopy (2006) History of gastrointestinal surgery (2006) History of lumbar laminectomy History of nasal surgery History of rectal surgery (03/2013) Previous back surgery (~2019) Status post hernia repair Status post knee surgery Status post knee surgery Family History Father Dementia Mother No problems noted. Social History household members: spouse Smoking Status: Never smoker alcohol intake: current Assessment & Plan Post-op Postoperative Procedures: Procedures Operation Date: 12/22/20 07:45 Actual Procedures Side Surgeon p Total Knee Arthroplasty Left John Zaragoza MD Patient will mobilize with physical therapy today. Patient does not want to take any other pain medication besides Tylenol and ibuprofen. Does not want a script for tramadol or [place] at home. He does not want a prescription for Zofran at home. If patient voiding without difficulty and mobilizing safely with physical therapy he can go home today. Quality VTE Deep Vein Thrombosis/Pulmonary Embolism Present on Admission: No
[2020-12-23] MEDS: ASPIRIN EC 81 MG TABLET PO (08:45)
[2020-12-23] MEDS: DOCUSATE 100 MG CAPSULE PO (08:45)
[2020-12-23] MEDS: ACETAMINOPHEN 325 MG TABLET 650 MG PO (08:46)
--- NOTE | 2020-12-23 09:05 | PT.IPTN ---
Current Diagnoses Unilateral primary osteoarthritis, left knee (12/22/20) Surgery Performed Operation Date: 12/22/20 07:45 Actual Procedures p Total Knee Arthroplasty(Left) - John Zaragoza MD Physical Therapy Treatment Note M2 PT-IP Current Condition Start: 12/22/20 13:09 Freq: NEEDED Status: Discharge Protocol: Document 12/22/20 14:45 AW (Rec: 12/22/20 15:00 AW [id number]) Physical Therapy Current Condition Current Condition Evaluation Date 12/22/20 Treatment Diagnosis L TKA; difficulty in walking Onset Date 12/22/20 Weight Bearing Status Weight Bearing Status Weight Bear as Tolerated M3 PT-IP Subjective Start: 12/22/20 13:09 Freq: NEEDED Status: Discharge Protocol: Document 12/23/20 09:05 AB (Rec: 12/23/20 12:51 AB [id number]) Subjective Physical Therapy Visit Type Type Treatment Note Visit Start Time 09:05 Visit Stop Time 09:30 Total Visit Minutes 25 Number of WILDLIFE SCIENCE PROFESSOR Visits 0 Physical Therapy Visit Comments Patient Comments pt is agreeable to do PT M4 PT-IP Mobility and Gait Start: 12/22/20 13:09 Freq: NEEDED Status: Discharge Protocol: Document 12/23/20 09:05 AB (Rec: 12/23/20 12:51 AB [id number]) PT-Bed Mobility Assessment Supine to Sit Supine to Sit Standby Assistance Sit to Supine Sit to Supine Standby Assistance PT-Transfer Assessment Sit to and From Stand Sit to and from Stand Standby Assistance Equipment Transfer Assistive Device Gait Belt,Front Wheeled Walker Orthotic/Prosthetic Devices or Brace: No Transfers Transfer Destination Bed,Toilet Transfer Technique ambulated using FWW Transfer Ability Level of Assist Standby Assistance,1 Person Assistance,Use of Upper Extremities Comments Mobility Comments completed supine to sit SBA ambulated in hallway ~ 125 ft using FWW SBA. completed up/ down steps using SPC and L rail CGA and cues. pt refused caregiver training and stated that he is going to be able to manage. pt ambulated back to his room using FWW sba. requested to use the toilet and ambulated towards the toilet using FWW SBA. able to ambulated out of the toilet towards the bed using fWW SBA. completed sit to supine SBA. positioned in bed. call light and table placed within reach. ice pack provided. Gait Assessment Gait Gait Assistance Required: Standby Assistance Distance (Feet) 125 Able to Maintain Weight Bearing Status Yes During Gait Assistive Devices Assistive Device Gait Belt,Front Wheeled Walker Orthotic/Prosthetic Devices or Brace: No Gait Deviations General Gait Pattern Antalgic,Decreased Stride Length,Decreased Feet Clearance,Step-to Gait Factors Limiting Gait Function Factors Limiting Gait Function Decreased Activity Tolerance, Decreased Strength,Limited Range of Motion,Pain,Poor Balance Stair Climbing Assessment Evaluation Level of Assist On Stairs Standby Assistance,Contact Guard Assistance,1 Person Assistance Devices Stair Climbing Assistive Devices Straight Cane,Left Railing Technique/Endurance Stair Climbing Direction Ascend and Descend Stair Climbing Technique Step to Step Number of Steps Climbed 3 Stair Climbing Set # Repetitions (reps) 2 M5 PT-IP Objective Assessments Start: 12/22/20 13:09 Freq: NEEDED Status: Discharge Protocol: Document 12/22/20 14:45 AW (Rec: 12/22/20 15:00 AW [id number]) Orientation Orientation/Cognition Level of Alertness Alert Orientation Name,Day of Week,Place, Situation Language Function Ability No Deficits Noted Safety Awareness Decreased Safety Awareness Memory Description No Deficits Noted Gross Range of Motion Lower Extremity ROM Assessment Left Impaired Strength Lower Extremity Strength Assessment Left Impaired Hip 4-/5 Knee 3/5 Comments Strength Comments RLE grossly 5/5 Sensation Assessment Sensation Gross Sensation Right LE Impaired,Left LE Impaired Light Touch Impaired Sensation Description Numbness M6 PT-IP Treatment Start: 12/22/20 13:09 Freq: NEEDED Status: Discharge Protocol: Document 12/23/20 09:05 AB (Rec: 12/23/20 12:51 AB [id number]) Physical Therapy Treatment Education Education Provided Safety M7 PT-IP Assessment and Plan Start: 12/22/20 13:09 Freq: NEEDED Status: Discharge Protocol: Document 12/23/20 09:05 AB (Rec: 12/23/20 12:51 AB [id number]) PT Summary Assessment and Plan Potential Rehabilitation Potential Good Summary Impairments Pain,ROM,Strength,Balance,Bed Mobility,Transfers,Gait, Activity Tolerance Progress Towards Goals Progressing Toward Goals Assessment Summary pt is progressing well with mobility and requires SBA with ambulation using FWW. pt plans to go home and stated that spouse will assist him. pt also has outpt PT scheduled . Goals Bed Mobility Goal Independent Transfer Goal Independent,Front Wheeled Walker Gait Goal Independent,Front Wheel Walker Gait Distance 200 Other Goals - up/down 2 steps with B rails SBA Days to Meet Goals 2 Frequency of Treatment Frequency Of Treatment Twice a Day Treatment Plan Physical Therapy Treatment Plan Bed Mobility Training,Transfer Training,Gait Training, Therapeutic Exercise,Balance Retraining,Post Op Education, Discharge Planning,Hot or Cold Pack Other Recommendations and Next Treatment ambulation, stairs Focus Recommendations To Nursing Amount of Assist Needed 1 Person Assist Discharge Recommendations PT Discharge Recommendations Home with Assistance, Outpatient PT Transportation Needs at Discharge Private Vehicle
--- NOTE | 2020-12-23 09:27 | CM.DANOTE ---
Addendum entered by Maria E Stallings LPN 12/23/20 10:02: Pt admitted yesterday for scheduled L TKA. Payer: [facility] P: home with orthopedic followup and 's supportive assist. Original Note: Discharge Planning/Care Management DCP: assessment: case received, EMR reviewed and met briefly with pt as he was completing stair training with PT Gabi. Pt has been ok'd for home and his family will be picking his up about noon today. CM Discharge Assessment Start: 12/23/20 09:26 Freq: Status: Active Protocol: Document 12/23/20 09:26 ITV (Rec: 12/23/20 09:27 ITV [id number]) Discharge Planning Assessment Advance Directives? Yes Advance Directives on File Yes: per patient History Provided By Patient,Medical Record Prior Living Arrangements House Household Members spouse Independent with ADL's Yes Is patient alert and oriented? Yes Pre-Anesthesia Assessment Start: 12/10/20 09:28 Freq: Status: Complete Protocol: Document 12/10/20 09:28 GLORIA (Rec: 12/10/20 10:17 [facility] [id number]) Pre-Anesthesia Assessment Preferred Name Sherwin Patient Information Reviewed Via Chart Review,Phone Assessment Assessment Completed With Patient Diagnostic Results BMP/CMP,CBC,EKG Comment A1c Primary Care Provider Khurram Iniguez Seen Specialist in Last 12 Months Yes Specialist Seen Orthopedist Primary Language [place] Preferred Language [place] Citizen Two Way Radio Technician Required No Height 175.26 cm Hearing Ability Hard of Hearing Visual Assist Glasses Dentition Type Teeth, Natural Present Barriers to Learning Auditory,Visual Other Aids No Comment reading glasses Hx Anesthesia Reactions No Hx Family Anesthesia Reaction No Hx Malignant Hyperthermia No Hx Blood Transfusions No Hx Blood Transfusion Reaction No Anesthesia Review Requested No Dcs Engineer No alcohol intake current alcohol intake frequency 0-2 drinks per day Smoking Status Never smoker Substance Use Type does not use Pain Present Pain Reported Comment L knee pain Musculoskeletal Symptoms Abnormal Gait,Back Pain, Difficulty Walking,Joint Pain, Joint Stiffness,Tingling History of Falling (Recent or History of Yes ) Comment r/t mountain biking, no walking/standing falls, skiis Patient is completely paralyzed or No completely immobile Ambulatory Aid None/bed rest/nurse assist Gait/Transferring Normal/bedrest/immobile Mental Status Oriented to own ability Is patient on oxygen? No Does patient have CALLE/SOB No Hx Sleep Apnea No CPAP/BIPAP use not prescribed Will Bring CPAP/BIPAP DOS No Diet Type At Home Regular dysphagia No Gastrointestinal Symptoms Reflux Comment using peppermint for reflux Bladder Pattern Nocturia Urinary Catheter Present No Hx Urinary Self Catheterization No Diabetes No Hx Drug Resistant Organism No Presence of External or Internal Medical No Devices Have you had any close contact with No someone diagnosed with COVID-19? Are you experiencing any of these No symptoms symptoms? Evaluation/Screening for possible COVID- Yes 19 infection completed? Marital Status Lives With spouse Prior Living Arrangements House Number of Floors (Floors) Two Floors Number of Stairs To Enter/Railing? Able to stay on main level into house One step into house, grab bar Support System Family,Spouse Does the Patient Have Assistance After Yes Surgery Patient Discharge Plan Description Return Home Feels Safe in Current Environment Yes Been Physically Hurt or Threatened By a No Person in Current Environment Do you have thoughts of harming yourself None or others? Are you currently considering suicide? No Do you have a plan to hurt yourself or No Plan others? Do You Have Any Spiritual Beliefs That No May Affect Your HC Choices? Do You Have Any Cultural Practices That No May Affect Your HC Choices? Who Can We Speak to About Patient's Care Family & Friends Identifying Code for Release of Patient Declined Information Health Care Proxy/Next of Kin Jessica Gamino - Health Care Proxy Emergency Contact Name Jessica Gamino - Emergency Contact Advance Directives? Yes Advance Directives on File Yes: per patient Power of Human Resources Trainee Yes Power of Human Resources Trainee Name Jessica sanchez Power of Human Resources Trainee PAC Instructions Assistance for 24 hours post- op,Do not shave/clip surgical site,Durable medical equipment ,Medications to take/avoid, Nasal antibiotic,No ETOH/ petroleum product on skin DOS, NPO,Post-op transportation,Pre -op antibiotic,Pre-surgical wash,Sensory aids,Sturdy shoes /comfortable clothes,Do not bring valuables and remove jewelry
--- NOTE | 2020-12-23 09:50 | PC.NURSE ---
Day shift: Pain controlled today with PO Tylenol and PO Ibuprofen per DEC. Pt does state that he does not want any Oxycodone here or at home. Ambulated in halls w/ PT and tolerated well. Dressing of JARAD and Aquacel remain CDI. Denies any nasea. NO emesis and tolerated breakfast. Makes needs known proper. AGrees to not get OOB w/o help from staff. Will likely go home at 1200 today.
--- NOTE | 2020-12-23 12:09 | PC.NURSE ---
Day shift: Pt left unit via WC with his spouse. Mariella PATEL took him to car. Paperwork signed and all questions answered. JARAD and Kenrickel remain CDI. Pt has all personal belongings. Pt is going to use the OTC meds on his d/c packet put there by . He will call [facility] if he needs a NARC pain med. Ambulating well. No nausea and pain ok. VS WNL. RA.
== END 2020-12-23 12:11 | disposition home or self-care (01) ==
LOC: OR 06:14 → AC 08:25
PROVIDERS: PCP Student in an Organized Health Care Education/Training Program; Referring Provider Student in an Organized Health Care Education/Training Program; Visit Provider Orthopaedic Surgery
PROC: 0SRD0JZ Replacement of Left Knee Joint with Synthetic Substitute, Open Approach (ICD-10-PCS; CPT 27447; principal; 2020-12-22 07:45)
DX: M17.12 Unilateral primary osteoarthritis, left knee (principal); E78.5 Hyperlipidemia, unspecified; K21.9 Gastro-esophageal reflux disease without esophagitis
CPT/HCPCS: 27447; 36415; 73560; 85014; 85018; 97116; 97161; 97530; C1776; C9290; J0690; J1100; J2250; J2270; J2274; J2405; J2704; J2765; J3010

== ENCOUNTER 2021-02-08 23:31 | Emergency (ER) | payer MEDICARE, SELFPAY ==
[2020-12-22 10:24] VITALS: BMI 28.3
[2021-02-08 23:36] VITALS: BP 133/77; PULSE 61; RESP 16; TEMP 36.8; O2SAT 99
--- NOTE | 2021-02-08 23:45 | DI.US.S_ITS ---
PROCEDURE: US PERIPH VENOUS LOW EXTREM LT INDICATIONS: PAIN/SWELLING. RECENT SURGERY. TECHNIQUE: Real-time imaging, as well as color and pulse Doppler interrogation, were performed of the lower extremity deep veins from the inguinal ligament to the popliteal fossa. COMPARISON: None. FINDINGS: The common femoral, femoral and popliteal veins are normally compressible, and free of intraluminal thrombus. Color and pulse Doppler demonstrate normal phasic intraluminal flow. There is normal augmentation response to distal compression maneuver. IMPRESSION: No evidence of deep vein thrombosis involving the left lower extremity. Dictated by: Deloris Hughes MD, PhD on 02/09/2021 at 8:22 Approved by: Deloris Hughes MD, PhD on 02/09/2021 at 8:22
--- NOTE | 2021-02-09 | ED.LOWEXIN ---
HPI - Extremity Injury (Lower) General Chief Complaint: Extremity Injury, Lower Stated Complaint: left knee - recent surgery can't flex it Time Seen by Provider: 02/08/21 23:35 Source: patient Mode of arrival: Ambulatory Limitations: no limitations History of Present Illness HPI Narrative: 75-year-old male nonsmoker presents with his in the chief complaint of some pain and swelling in his posterior left knee. He had his left knee surgically repaired about 7 weeks ago by local orthopedics and has been doing quite well. He has been ambulating without difficulty. He denies any trauma or injury. He denies any fever or chills. He states the pain and swelling is is posterior knee only and seems to be worse with ambulation and improves with rest. He denies any chest pain or shortness of breath. He denies any numbness, tingling or weakness. complaint: knee injury Onset (ago): day(s) Place: home Severity: moderate Relieving factors: rest Exacerbating factors: weight bearing and movement Associated symptoms: swelling and able to partially bear weight Other symptoms: none Related Data Home Medications Medication Instructions Recorded Confirmed omega 4-por-izx-fish oil [Fish Oil] 1,000 cap PO DAILY 12/10/20 12/22/20 Previous Rx's Medication Instructions Recorded pravastatin 40 mg tablet 40 mg PO HS #90 tab 05/22/20 acetaminophen 500 mg PO Q4HR #20 tab 12/23/20 aspirin 81 mg PO BID #30 tab 12/23/20 docusate sodium [DOK] 100 mg PO BID #30 cap 12/23/20 ibuprofen 400 mg PO Q4HR #30 tab 12/23/20 Allergies Allergy/AdvReac Type Severity Reaction Status Date / Time pantoprazole AdvReac Mild Diarrhea Verified 12/22/20 06:43 Review of Systems Constitutional Constitutional: Denies chills, Denies fatigue, Denies fever(s), Denies frequent falls, Denies lethargy and Denies weakness Eyes Eyes: Denies change in vision, Denies eye discharge, Denies irritation and Denies loss of vision ENT Ears, Nose, Mouth, and Throat: Denies change in voice, Denies dizziness, Denies neck pain, Denies sore throat and Denies throat swelling Cardiovascular Cardiovascular: Denies chest pain, Denies irregular heart rhythm, Denies lightheadedness, Denies palpitations, Denies dyspnea, Denies dyspnea on exertion and Denies orthopnea Respiratory Respiratory: Denies cough, Denies dyspnea, Denies dyspnea on exertion and Denies wheezing Gastrointestinal Gastrointestinal: Denies abdominal pain, Denies change in bowel habits, Denies diarrhea, Denies nausea and Denies vomiting Musculoskeletal Musculoskeletal: Reports arthralgias, Reports joint swelling, Denies neck pain and Denies numbness Integumentary/Breasts Skin/Breast: Denies pruritus, Denies erythema, Denies rash and Denies wounds Neurologic Neurologic: Denies behavioral changes, Denies confusion, Denies dizziness, Denies frequent falls, Denies loss of vision, Denies numbness and Denies weakness Psychiatric Psychiatric: Denies anxiety, Denies behavioral changes, Denies confusion, Denies depression, Denies homicidal ideation and Denies suicidal ideation Endocrine Endocrine: Denies fatigue, Denies flushing and Denies palpitations Hematologic/Lymphatic Hematologic/Lymphatic: Denies easy bruising Allergic/Immunologic Allergic/Immunologic: Denies urticaria, Denies throat swelling and Denies wheezing Patient History Medical History Juvenile rheumatic fever Low back pain Sensorineural hearing loss Unilateral primary osteoarthritis, left knee Surgical History Anesthesia History of carpal tunnel repair (07/2014) History of colonoscopy (2006) History of gastrointestinal surgery (2006) History of lumbar laminectomy History of nasal surgery History of rectal surgery (03/2013) Previous back surgery (~2019) Status post hernia repair Status post knee surgery Status post knee surgery Family History Father Dementia Mother No problems noted. Social History household members: spouse Smoking Status: Never smoker alcohol intake: current Smoking Status: Never smoker alcohol intake frequency: a few times a week Substance Use Type: does not use Exam Narrative Exam Narrative: GENERAL: [75] year old patient appears stated age. Well-nourished, well-developed patient, in mild distress. Ambulated under his own power into the supervisor extruding department: Atraumatic. Normocephalic. EYES: Pupils equal round and reactive. Extraocular motions intact. No scleral icterus. No injection or drainage. ENT: Nose without bleeding, purulent drainage. Throat without erythema, tonsillar hypertrophy or exudate. Airway patent. NECK: Trachea midline. Non tender CARDIOVASCULAR: Regular rate and rhythm without murmurs, gallops, or rubs. RESPIRATORY: Clear to auscultation. Breath sounds equal bilaterally. No wheezes, rales, or rhonchi. GASTROINTESTINAL: Abdomen soft, non-tender, nondistended. EXTREMITIES: Left knee with very minimal effusion, no erythema, will warmth or pain with passive range of motion. Incision looks great, clean, dry and intact. Most tender in the posterior knee, popliteal fossa, no obvious redness or warmth. No pain or swelling along medial thigh. No suggestion of septic arthritis No edema or joint tenderness. BACK: Nontender without deformity or crepitance. No flank tenderness. NEURO: AOx3. SKIN: No rash or erythema of visible areas Initial Vital Signs Initial Vital Signs: Vital Signs Temperature 98.2 F 02/08/21 23:36 Pulse Rate 61 02/08/21 23:36 Respiratory Rate 16 02/08/21 23:36 Blood Pressure 133/77 02/08/21 23:36 Pulse Oximetry 99 02/08/21 23:36 Course Orders Ordered: ED Orders 02/08/21 23:45 US periph venous low extrem lt Stat Vital Signs Vital signs: Vital Signs - 8 hr 02/08/21 23:36 Temperature 98.2 F Pulse Rate 61 Respiratory Rate 16 Blood Pressure 133/77 Pulse Oximetry 99 MDM - Extremity Injury (Lower) Imaging Data US - DVT: Radiologist's Impression: No evidence of deep venous thrombosis within left lower extremity MDM Narrative Medical decision making narrative: Multiple etiologies for patient's symptoms considered including: [DVT but thought unlikely given lack of erythema, warmth or findings on ultrasound. Postoperative infection considered but thought unlikely given lack of systemic findings, erythema, redness or significant effusion. Hematoma considered but thought unlikely given exam.] Findings and discharge diagnosis discussed with patient/family followed by verbalization of understanding Return precautions discussed with patient/family whom verbalize understanding. Discharge Plan Departure Patient Disposition: Home Clinical Impression: Pain and swelling of knee Qualifiers: Laterality: left Qualified Code(s): M25.562 - Pain in left knee Instructions: DI for Knee Pain Activity Restrictions/Additional Instructions: *You have been diagnosed with [left knee pain and swelling. Physical exam is very reassuring and would suggest against the likelihood of infection. Ultrasound shows no clot. *What to do: *Take medications as directed *Follow up with your orthopedic provider in 2-3 days, call for an appointment. Let them know you were seen in the Emergency Department and that we ask that you be seen in follow up *Return to ER if you should have any new, worsening or concerning symptoms, such as [increasing pain, redness, swelling or development of systemic symptoms such as fever, chills, nausea or vomiting] Prescriptions: No Action pravastatin 40 mg tablet 40 mg PO HS Qty: 90 RF: 1 omega 7-yds-nxg-fish oil [Fish Oil] 1,000 mg (120 mg-180 mg) Capsule 1,000 cap PO DAILY RF: 0 acetaminophen 325 mg Tablet 500 mg PO Q4HR Qty: 20 RF: 0 aspirin 81 mg Tablet,Delayed Release (Dr/Ec) 81 mg PO BID Qty: 30 RF: 0 ibuprofen 400 mg Tablet 400 mg PO Q4HR Qty: 30 RF: 0 docusate sodium [DOK] 100 mg Capsule 100 mg PO BID Qty: 30 RF: 0 Referrals: Khurram Iniguez MD [Primary Care Provider] - John Zaragoza MD [Physician] -
== END 2021-02-09 00:36 | disposition home or self-care (01) ==
PROVIDERS: Emergency Provider Emergency Medicine; PCP Student in an Organized Health Care Education/Training Program
DX: M25.562 Pain in left knee (principal)
CPT/HCPCS: 93971; 99281; 99283

== ENCOUNTER → 2021-05-07 08:26 | Outpatient (CLI) | payer MEDICARE, SELFPAY ==
[2021-04-06 09:31] VITALS: BMI 28.3
--- NOTE | 2021-05-07 08:27 | DI.RAD.S_ITS ---
PROCEDURE: XR LUMBAR SPINE MIN 4V INDICATIONS: Back stiffness TECHNIQUE: 5 views of the lumbar spine were acquired, including bilateral oblique views. COMPARISON: [facility], MR, MR LUMBAR SPINE WO CON, 03/06/2020, 14:17. [facility] [place], CR, XR LUMBAR SPINE WITH OLBIQUES PLUS FLEXION EXTENSION, 08/20/2019, 8:27. FINDINGS: Bones: 5 nonrib-bearing vertebrae are present. There is a mild leftward curvature of the lower lumbar spine centered at L4-5 redemonstrated. There is grade 1 anterolisthesis at L5-S1 measuring up to 7 mm which appears similar to the prior studies. Minimal retrolisthesis at L1-L2, L2-L3, L3-L4, and L4-5 also appear similar to the prior studies. No vertebral body compression fractures. No suspicious bony lesions. Multilevel degenerative disc disease redemonstrated throughout the lumbar spine including moderate degeneration at L2-L3 with endplate sclerosis and osteophytosis. Mild to moderate degeneration also demonstrated at L5-S1 as well as mild degeneration at L4-5, which appear slightly increased from the prior study. There is moderate facet arthropathy in the lower lumbar spine. Soft tissues: Overlying bowel gas pattern is normal. No suspicious soft tissue calcifications. Oblique images: There are bilateral mildly displaced pars defects at L5. IMPRESSION: 1. 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 2. Mild leftward curvature of the lower lumbar spine and minimal multilevel retrolisthesis also appears similar to the prior exams. 3. Multilevel degenerative disc disease throughout the lumbar spine including moderate degeneration at L2-L3. 4. Moderate facet arthropathy in the lower lumbar spine. Dictated by: Dilip Giang M.D. on 05/07/2021 at 11:20 Approved by: Dilip Giang M.D. on 05/07/2021 at 11:25
== END ==
PROVIDERS: PCP Student in an Organized Health Care Education/Training Program; Referring Provider Physical Medicine & Rehabilitation; Visit Provider Physical Medicine & Rehabilitation
DX: M25.69 Stiffness of other specified joint, not elsewhere classified (principal); M47.816 Spondylosis without myelopathy or radiculopathy, lumbar region; M51.36 Other intervertebral disc degeneration, lumbar region; M51.37 Other intervertebral disc degeneration, lumbosacral region; M43.16 Spondylolisthesis, lumbar region; Z98.890 Other specified postprocedural states
CPT/HCPCS: 72110

== ENCOUNTER → 2021-06-09 08:30 | Outpatient (CLI) | payer MEDICARE, SELFPAY ==
[2021-04-06 09:31] VITALS: BMI 28.3
[2021-06-09 14:15] LABS: COVID19 -Nasal RAPID Negative (Negative)
== END ==
PROVIDERS: PCP Student in an Organized Health Care Education/Training Program; Visit Provider Physical Medicine & Rehabilitation
DX: Z20.822 Contact with and (suspected) exposure to COVID-19 (principal)
CPT/HCPCS: 87635; C9803

== ENCOUNTER 2021-06-11 07:28 | Outpatient (CLI) | payer MEDICARE, SELFPAY ==
[2021-04-06 09:31] VITALS: BMI 28.3
[2021-06-11] VITALS (8 sets, daily range): BP systolic 102–125; BP diastolic 67–76; PULSE 54–61; RESP 10–16; TEMP 36.7; O2SAT 94–98
--- NOTE | 2021-06-11 07:30 | DI.RAD.S_ITS ---
PROCEDURE: PAIN L/S FACET INJ/BLK 1ST SARA COMPARISON: [facility], CR, XR LUMBAR SPINE MIN 4V, 05/07/2021, 8:26. INDICATIONS: Bilateral L4-5 L5-S1 facet joint injection FINDINGS: Fluoroscopic spot filming was performed to verify placement of spinal needles at the L4-L5 level and at the L5-S1 level on both sides. Appropriate location of the needle tips was confirmed by injection of iodinated contrast. IMPRESSION: Intraprocedural examination within normal limits. Dictated by: Corwin Mcdaniel M.D. on 06/11/2021 at 9:25 Approved by: Corwin Mcdaniel M.D. on 06/11/2021 at 9:26
[2021-06-11] MEDS: fentaNYL 100 MCG/2 ML INJ 50 MCG IV (08:01)
[2021-06-11] MEDS: MIDAZOLAM 5 MG/5 ML VIAL IV (08:01)
[2021-06-11] MEDS: BUPIVACAINE 0.5% (PF) VIAL 5 ML INJ (08:06)
[2021-06-11] MEDS: IOPAMIDOL 15 ML VIAL 3 ML INJ (08:07)
[2021-06-11] MEDS: LIDOCAINE 1% 20 ML 10 ML INJ (08:07)
[2021-06-11] MEDS: BETAMETHASONE 30 MG/5 ML MDV 12 MG IM (08:09)
--- NOTE | 2021-06-11 08:21 | P.PCN_ITS ---
Date/Time/Diagnoses Date of procedure: 06/11/21 Time of procedure: 08:21 Pre-procedure diagnosis: 1. FACET ARTHROPATHY 2. AXIAL LBP 3. MULTILEVEL DDD Post-procedure diagnosis: same Procedure Notes Procedure: 1. FLUOROSCOPICALLY GUIDED CONTRAST CONTROLLED FACET JOINT INJECTIONS BILATERAL L4/5, L5/S1 Indications: Sherwin is referred by Dr. Iniguez for treatment of Axial LBP Physician: Brain Hernandez Total Fluoroscopy time (seconds): 12 Total sedation minutes: 16 Complications: none Procedure in detail & Post-procedure care: FINDINGS Multilevel Facet Arthropathy with Clinically significant axial LBP DESCRIPTION OF PROCEDURE Fluoroscopically guided, contrast-controlled bilateral L4/5, L5/S1 facet joint injections. Following review of allergy and review of potential side effects and complications, including, but not necessarily limited to, infection, allergic reaction, local tissue breakdown, stroke, temporary or permanent nerve injury, paralysis, and possible , the patient indicated that the patient understood and agreed to proceed. An informed consent document was signed by the patient, witnessed by a nurse, and placed in the patient's chart. Additionally, other treatment options including medications, modalities, and physical therapy were reviewed with the patient. After review of previous anaesthesic history and IV conscious sedation the patient was deemed safe to proceed with today?s procedure with IV conscious sedation as ASA class II designation. Safety time-out was performed to confirm patient ID, procedure to be performed and site of procedure. IV sedation was accomplished with a combination of 2mg of Versed and 50mcg of Fentanyl was administered by the RN after DO order, titrated to patient comfort during the course of the procedure while the patient remained responsive to all verbal commands In the prone position, following sterile prep and drape of the lumbar region, the posterior aspect of the L4/5, L5/S1 facet joints were identified fluoroscopically. The skin was anesthetized via a 25-gauge 1.5inch needle with 1% lidocaine solution into the corresponding facet joints. At this point, a 22- gauge 3.5-inch spinal needle was atraumatically introduced and advanced under fluoroscopic guidance into the corresponding facet joints. Following negative aspiration, injections of approximately 0.2cc of Isovue 200 confirmed interarti cular placement without vascular uptake. The identical procedure was then performed at the L4/5, L5/S1 facet joints on the left. Radiological data, including multiple fluoroscopic views of the lumbosacral spine, reveal a spinal needle at the L4/5, L5/S1 facet joints bilaterally. Subsequent views show flow of contrast material both superiorly and inferiorly within the joint space without vascular or intrathecal uptake. At this point, a total of 0.5cc including a mixture of 0.25cc Marcaine and 0.25cc betamethasone was injected without complication into each of the corresponding facet joints. The patient tolerated the procedure well without signs or symptoms of complications prior to transfer to the recovery area continued monitoring without incident. The patient was then transferred to the recovery area where they were observed for an appropriate period of time after the injection. The patient reported a VAS score of 7 prior to the procedure and a post- procedure VAS of 0. POST OP INSTRUCTIONS The patient was provided a Pain Log to continue to record their response to the target-specific procedure prior to follow-up visit with their referring physician. Additionally, specific post-injection care instructions and a contact number to our office were provided if concerns arise regarding possible complications associated with the procedure are suspected.
--- NOTE | 2021-06-11 08:46 | PC.NURSE ---
Patient got to the car and started to feel nauseous, he had 100 ml emisus refused care.
== END 2021-06-11 08:38 | disposition home or self-care (01) ==
PROVIDERS: PCP Student in an Organized Health Care Education/Training Program; Referring Provider Physical Medicine & Rehabilitation; Visit Provider Physical Medicine & Rehabilitation
DX: M47.816 Spondylosis without myelopathy or radiculopathy, lumbar region (principal); M54.5 Low back pain; M51.36 Other intervertebral disc degeneration, lumbar region
CPT/HCPCS: 64493; 64494; 99151; 99152; J0702; J2250; J3010

== ENCOUNTER → 2021-08-31 13:23 | Outpatient (CLI) | payer MEDICARE, SELFPAY ==
[2021-04-06 09:31] VITALS: BMI 28.3
[2021-08-31 14:59] LABS: COVID19 -Nasal RAPID Negative (Negative)
== END ==
PROVIDERS: PCP Student in an Organized Health Care Education/Training Program; Visit Provider Physical Medicine & Rehabilitation
DX: Z20.822 Contact with and (suspected) exposure to COVID-19 (principal)
CPT/HCPCS: 87635; C9803

== ENCOUNTER 2021-09-01 14:03 | Outpatient (CLI) | payer MEDICARE, SELFPAY ==
[2021-04-06 09:31] VITALS: BMI 28.3
[2021-09-01] VITALS (8 sets, daily range): BP systolic 115–166; BP diastolic 69–90; PULSE 50–66; RESP 11–20; TEMP 36.3; O2SAT 94–99
--- NOTE | 2021-09-01 14:04 | DI.RAD.S_ITS ---
PROCEDURE: PAIN L INTERLAMINAR/CAUDAL INJ INDICATIONS: SPONDYLOSIS COMPARISON: [facility], XA, PAIN L/S FACET INJ/BLK 1ST SARA, 06/11/2021, 8:08. FINDINGS: Fluoroscopic spot filming was performed to verify placement of a spinal needle at the L5-S1 level, as labeled on the films. Appropriate location of the needle tip was confirmed by injection of iodinated contrast. IMPRESSION: No significant intraprocedural abnormality. Dictated by: Corwin Mcdaniel M.D. on 09/01/2021 at 15:08 Approved by: Corwin Mcdaniel M.D. on 09/01/2021 at 15:08
--- NOTE | 2021-09-01 14:09 | PM.PROC.IR.1 ---
Date/Time/Diagnoses Date of procedure: 09/01/21 Time of procedure: 15:01 Pre-procedure diagnosis: 1. HNP WITH RADICULAR FEATURES, 2. MULTILEVEL CENTRAL STENOSIS, Post-procedure diagnosis: same Procedure Notes Procedure: 1. FLUOROSCOPICALLY GUIDED CONTRAST CONTROLLED INTERLAMINAR EPIDURAL STEROID INJECTION - L5/S1 Indications: Sherwin is referred by Dr. Iniguez for treatment of Bilateral Foraminal Stenosis L>R LE symptoms. Physician: Brain Hernandez Total Fluoroscopy time (seconds): 5 Total sedation minutes: 7 Complications: none Procedure in detail & Post-procedure care: FINDINGS Multilevel Central Spinal Stenosis with Nerve Root Compression DESCRIPTION OF PROCEDURE Fluoroscopically guided, contrast-controlled L5/S1 translaminar epidural steroid injection. Following review of allergy and review of potential side effects and complications, including, but not necessarily limited to, infection, allergic reaction, local tissue breakdown, temporary as well as permanent nerve injury, paralysis, stroke and possible , the patient indicated that the patient understood and agreed to proceed. An informed consent document was signed by the patient, witnessed by a nurse, and placed in the patient's chart. Additionally, other treatment options including modalities, medications, and physical therapy were reviewed with the patient. After review of previous anaesthesic history and IV conscious sedation the patient was deemed safe to proceed with today?s procedure with IV conscious sedation as ASA class II designation. Safety time-out was performed to confirm patient ID, procedure to be performed and site of procedure. IV sedation was accomplished with a combination of 2mg of Versed administered by the RN after DO order, titrated to patient comfort during the course of the procedure while the patient remained responsive to all verbal commands. In the prone position, following sterile prep and drape of the lumbar region, the L5/S1 translaminar space was identified fluoroscopically. The skin was anesthetized via a 25-gauge, 1.5-inch needle with 1% lidocaine solution. At this point, a 22-gauge short bevel spinal needle was atraumatically introduced and advanced under fluoroscopic guidance into the region of the L5/S1 translaminar space. Depth was confirmed on lateral view. Radiological data, including multiple fluoroscopic views of the lumbar spine, reveal a spinal needle at the L5/S1 translaminar space. Lateral views then show placement of the needle in the epidural space. Subsequent views show contrast material flowing superiorly and inferiorly in the epidural space. No vascular or intrathecal uptake is observed. At this point, using loss of resistance technique with saline and air, the epidural space was entered. This was confirmed following negative aspiration with injection of approximately 1.5cc of Isovue 200, showing excellent epidural flow without vascular or intrathecal uptake. At this point, 1cc of 1% lidocaine solution combined with 4cc or 20mg of dexamethasone and 12mg of betamethasone was injected without incident. The patent tolerated the procedure without signs of symptoms of complications prior to transfer to the recovery area for further monitoring. The patient was then transferred to the recovery area where they were observed for an appropriate period of time after the injection. The patient reported a VAS score of 6 prior to the procedure and a post-procedure VAS of 0. POST OP INSTRUCTIONS The patient was provided a Pain Log to continue to record their response to the target-specific procedure prior to follow-up visit with their referring physician. Additionally, specific post-injection care instructions and a contact number to our office were provided if concerns arise regarding possible complications associated with the procedure are suspected.
[2021-09-01] MEDS: MIDAZOLAM 5 MG/5 ML VIAL IV (14:50)
[2021-09-01] MEDS: BUPIVACAINE 0.25% (PF) VIAL 2 ML INJ (14:53)
[2021-09-01] MEDS: IOPAMIDOL 15 ML VIAL 3 ML INJ (14:53)
[2021-09-01] MEDS: DEXAMETHASONE 10 MG/ML VIAL 20 MG INJ (14:54)
[2021-09-01] MEDS: BETAMETHASONE 30 MG/5 ML MDV 12 MG INJ (14:54)
== END 2021-09-01 15:27 | disposition home or self-care (01) ==
LOC: RAD 14:03
PROVIDERS: PCP Student in an Organized Health Care Education/Training Program; Referring Provider Physical Medicine & Rehabilitation; Visit Provider Physical Medicine & Rehabilitation
DX: M51.17 Intervertebral disc disorders with radiculopathy, lumbosacral region (principal); M48.07 Spinal stenosis, lumbosacral region
CPT/HCPCS: 62323; J0702; J1100; J2250; J3010

== ENCOUNTER → 2021-11-16 09:59 | Outpatient (CLI) | payer MEDICARE, SELFPAY ==
[2021-11-02 11:44] VITALS: BMI 28.3
[2021-11-16 11:24] LABS: Add Manual Diff / Slide Review NO; Basophils Absolute Auto 100 /uL (0-100); Basophils Percent Auto 1.3 % (0-2); Eosinophils Absolute Auto 200 /uL (0-450); Eosinophils Percent Auto 3.8 % (2-4); Hematocrit 45.7 % (41-53); Hemoglobin 15.4 g/dL (13.5-17.5); Lymphocytes Absolute Auto 1000 /uL (1100-4500); Lymphocytes Percent Auto 20.9 % (25-40); Mean Corpuscular HGB Conc 33.8 % (30-36); Mean Corpuscular Hemoglobin 31.7 PG (26-34); Mean Corpuscular Volume 93.8 fL (80-100); Monocytes Absolute Auto 500 /uL (0-900); Monocytes Percent Auto 10.6 % (3-14); Neutrophils Absolute Auto 3000 /uL (1500-7000); Neutrophils Percent Auto 63.4 % (50-75); Platelet Count 244 X10^3/uL (150-400); Red Blood Cell Count 4.87 X10^6/uL (4.5-5.9); Red Cell Distribution Width 13.7 % (11.6-14.8); White Blood Cell Count 4.8 X10^3/uL (4.5-11.0)
[2021-11-16 11:29] LABS: Alanine Aminotransferase 24 IU/L (<50); Albumin 4.1 g/dL (3.5-5.0); Albumin Globulin Ratio 1.4 (1.0-2.8); Alkaline Phosphatase 90 U/L (38-126); Aspartate Aminotransferase 38 IU/L (17-59); BUN Creatinine Ratio 18.8 (6-22); Bilirubin Total 0.5 mg/dL (0.2-1.3); Blood Urea Nitrogen 24 mg/dL (9-20); Calcium 9.3 mg/dL (8.4-10.2); Carbon Dioxide 28 mmol/L (22-32); Chloride 103 mmol/L (98-107); Cholesterol 174 mg/dL (140-199); Estimated Glomerular Filt Rate 54.5 mL/min (>60); Globulin 2.9 g/dL (1.7-4.1); Glucose 94 mg/dL (80-110); HDL Cholesterol 80 mg/dL (40-60); HEMOLYSIS < 15 (0-50); LDL Cholesterol Calculated 76 mg/dL (<100); Sodium 134 mmol/L (137-145); Triglycerides 91 mg/dL (35-150)
[2021-11-16 11:53] LABS: TSH w/ Reflex to FT4 1.37 uIU/mL (0.47-4.68)
[2021-11-16 12:11] LABS: Vitamin B12 423 pg/mL (239-931)
[2021-11-25 07:11] LABS: 5-HIAA, Urine 6.7 mg/L (Undefined)
== END ==
PROVIDERS: PCP Student in an Organized Health Care Education/Training Program; Referring Provider Student in an Organized Health Care Education/Training Program; Visit Provider Student in an Organized Health Care Education/Training Program
DX: E34.0 Carcinoid syndrome (principal); E78.5 Hyperlipidemia, unspecified; R06.00 Dyspnea, unspecified
CPT/HCPCS: 36415; 80053; 80061; 82570; 82607; 83497; 84443; 85025

== ENCOUNTER → 2021-12-12 13:00 | Outpatient (CLI) | payer MEDICARE, SELFPAY ==
[2021-12-09 11:01] VITALS: BMI 28.3
--- NOTE | 2021-12-12 13:02 | DI.MRI.S_ITS ---
PROCEDURE: MR LUMBAR SPINE WO CON INDICATIONS: post laminectomy syndrome with Bilat LE symptoms TECHNIQUE: Noncontrast sagittal T1 spin echo and T2 fast echo, sagittal STIR, axial T1 and T2 fast spin echo through the lumbar spine. In cases with scoliosis, additional coronal T2 fast spin echo may be performed. COMPARISON: [facility], MR, MR LUMBAR SPINE WO CON, 03/06/2020, 14:17. [facility], MR, MR LUMBAR SPINE WO CON, 01/01/2019, 10:10. FINDINGS: Image quality: Excellent. 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 There is trace L1-L2, L2-L3 and L3-L4 retrolisthesis. There is mild convex left scoliosis of the lower lumbar spine Bone Marrow: Modic type 2 reactive endplate changes noted adjacent to the L1-L2, L2-L3, L4-L5 and L5-S1 discs. No acute vertebral body compression fractures. Spinal Cord: Conus medullaris terminates at the L1 level. Visualized cord demonstrates normal signal and size. Paraspinous Soft Tissues: No paravertebral masses. T12-L1: Normal appearance. L1-L2: Loss of disc signal and height. Mild to moderate diffuse disc bulge. Mild to moderate narrowing of the central canal. Moderate bilateral neural foraminal narrowing. No neural compression. L2-L3: Loss of disc signal and height. Mild, diffuse disc bulge. Mild bilateral facet hypertrophy. Moderate narrowing of the central canal. Moderate bilateral neural foraminal narrowing. No neural compression. L3-L4: Loss of disc signal. Moderate, diffuse disc bulge. Small central disc protrusion. Mild to moderate bilateral facet hypertrophy. Mild ligamentum flavum hypertrophy. Severe narrowing of the central canal with compression of the nerve roots of the cauda equina. Severe bilateral neural foraminal narrowing with slight compression of the exiting L3 nerve roots. L4-L5: Status post right laminotomy. Loss of disc signal and height. Mild, diffuse disc bulge. Mild bilateral facet hypertrophy. 1.3 x 0.7 x 1.3 centimeter multiloculated synovial cyst projects off the medial margin of the right facet. Moderate narrowing of the central canal. Severe right and moderate to severe left neural foraminal narrowing with compression of the exiting right L4 nerve root and slight compression of the exiting left L4 nerve root. L5-S1: Loss of disc signal. Mild, diffuse disc bulge. Mild bilateral facet hypertrophy. No central stenosis. Severe bilateral neural foraminal narrowing with compression of the exiting bilateral L5 nerve roots. IMPRESSION: 1. Grade 1 L5-S1 isthmic spondylolisthesis. 2. Mild convex left scoliosis. 3. Multilevel degenerative disc disease. 4. Multilevel facet arthropathy. 5. Severe L3-L4 central canal narrowing with compression of the traversing nerve roots of the cauda equina. 6. Severe bilateral L5-S1 neural foraminal narrowing with marked compression of the exiting bilateral L5 nerve roots. Severe bilateral L3-L4 neural foraminal narrowing with slight compression of the exiting bilateral L3 nerve roots. Severe right and moderate to severe left L4-L5 neural foraminal narrowing with slight compression of the exiting bilateral L4 nerve roots. Dictated by: Deloris Hughes MD, PhD on 12/14/2021 at 10:45 Approved by: Deloris Hughes MD, PhD on 12/14/2021 at 10:53
== END ==
PROVIDERS: PCP Student in an Organized Health Care Education/Training Program; Referring Provider Physical Medicine & Rehabilitation; Visit Provider Physical Medicine & Rehabilitation
DX: M96.1 Postlaminectomy syndrome, not elsewhere classified (principal); M51.27 Other intervertebral disc displacement, lumbosacral region; M51.37 Other intervertebral disc degeneration, lumbosacral region; M51.36 Other intervertebral disc degeneration, lumbar region; M43.17 Spondylolisthesis, lumbosacral region; M41.86 Other forms of scoliosis, lumbar region; M47.816 Spondylosis without myelopathy or radiculopathy, lumbar region; M47.817 Spondylosis without myelopathy or radiculopathy, lumbosacral region; M48.061 Spinal stenosis, lumbar region without neurogenic claudication; M48.07 Spinal stenosis, lumbosacral region
CPT/HCPCS: 72148

== ENCOUNTER → 2021-12-21 10:03 | Outpatient (CLI) | payer MEDICARE, SELFPAY ==
[2021-12-09 11:01] VITALS: BMI 28.3
[2021-12-21 14:03] LABS: COVID19 -Nasal RAPID Negative (Negative)
== END ==
PROVIDERS: PCP Student in an Organized Health Care Education/Training Program; Visit Provider Physical Medicine & Rehabilitation
DX: Z20.822 Contact with and (suspected) exposure to COVID-19 (principal)
CPT/HCPCS: 87635; C9803

== ENCOUNTER 2021-12-22 08:00 | Outpatient (CLI) | payer MEDICARE, SELFPAY ==
[2021-12-09 11:01] VITALS: BMI 28.3
[2021-12-22] VITALS (8 sets, daily range): BP systolic 120–140; BP diastolic 67–80; PULSE 55–64; RESP 11–18; TEMP 36.7; O2SAT 96–98
--- NOTE | 2021-12-22 08:01 | DI.RAD.S_ITS ---
PROCEDURE: PAIN L INTERLAMINAR/CAUDAL INJ INDICATIONS: SPONDYLOSIS COMPARISON: None. FINDINGS: Fluoroscopic spot filming was performed to verify placement of spinal needles at the left paramedian interlaminar space at the L3-L4 level(s), as labeled on the films. Appropriate location(s) of the needle tip(s) was confirmed by injection of iodinated contrast. IMPRESSION: Access needle in the left paramedian L3-L4 interlaminar space for translaminar epidural steroid injection. Dictated by: Deloris Hughes MD, PhD on 12/22/2021 at 11:54 Approved by: Deloris Hughes MD, PhD on 12/22/2021 at 11:55
[2021-12-22] MEDS: MIDAZOLAM 5 MG/5 ML VIAL IV (08:52)
[2021-12-22] MEDS: IOPAMIDOL 15 ML VIAL 3 ML INJ (09:02)
[2021-12-22] MEDS: BUPIVACAINE 0.25% (PF) VIAL 2 ML INJ (09:02)
[2021-12-22] MEDS: BETAMETHASONE 30 MG/5 ML MDV 6 MG INJ (09:03)
[2021-12-22] MEDS: DEXAMETHASONE 10 MG/ML VIAL 20 MG INJ (09:03)
--- NOTE | 2021-12-22 09:16 | P.PCN_ITS ---
Date/Time/Diagnoses Date of procedure: 12/22/21 Time of procedure: 09:16 Pre-procedure diagnosis: 1. HNP WITH RADICULAR FEATURES, 2. MULTILEVEL CENTRAL STENOSIS, Post-procedure diagnosis: same Procedure Notes Procedure: 1. FLUOROSCOPICALLY GUIDED CONTRAST CONTROLLED INTERLAMINAR EPIDURAL STEROID INJECTION - L3/4 Indications: Sherwin is referred by Dr. Iniguez for treatment of Bilateral Foraminal Stenosis L>R LE symptoms. Physician: Brain Hernandez Total Fluoroscopy time (seconds): 6 Total sedation minutes: 16 Complications: none Procedure in detail & Post-procedure care: FINDINGS Multilevel Central Spinal Stenosis with Nerve Root Compression DESCRIPTION OF PROCEDURE Fluoroscopically guided, contrast-controlled L3/4 translaminar epidural steroid injection. Following review of allergy and review of potential side effects and complications, including, but not necessarily limited to, infection, allergic reaction, local tissue breakdown, temporary as well as permanent nerve injury, paralysis, stroke and possible , the patient indicated that the patient understood and agreed to proceed. An informed consent document was signed by the patient, witnessed by a nurse, and placed in the patient's chart. Additionally, other treatment options including modalities, medications, and physical therapy were reviewed with the patient. After review of previous anaesthesic history and IV conscious sedation the patient was deemed safe to proceed with today?s procedure with IV conscious sedation as ASA class II designation. Safety time-out was performed to confirm patient ID, procedure to be performed and site of procedure. IV sedation was accomplished with a combination of 2mg of Versed was administered by the RN after DO order, titrated to patient comfort during the course of the procedure while the patient remained responsive to all verbal commands. In the prone position, following sterile prep and drape of the lumbar region, the L3/4 translaminar space was identified fluoroscopically. The skin was anesthetized via a 25-gauge, 1.5-inch needle with 1% lidocaine solution. At this point, a 22-gauge short bevel spinal needle was atraumatically introduced and advanced under fluoroscopic guidance into the region of the L3/4 translaminar space. Depth was confirmed on lateral view. Radiological data, including multiple fluoroscopic views of the lumbar spine, reveal a spinal needle at the L3/4 translaminar space. Lateral views then show placement of the needle in the epidural space. Subsequent views show contrast material flowing superiorly and inferiorly in the epidural space. No vascular or intrathecal uptake is observed. At this point, using loss of resistance technique with saline and air, the epidural space was entered. This was confirmed following negative aspiration with injection of approximately 1.5 cc of Isovue 200, showing excellent epidural flow without vascular or intrathecal uptake. At this point, 1cc of 1% lidocaine solution combined with 3cc or 20mg of dexamethasone and 6mg of betamethasone was injected without incident. The patient tolerated the procedure well without signs or symptoms of complications prior to transfer to the recovery area continued monitoring without incident. The patient was then transferred to the recovery area where they were observed for an appropriate period of time after the injection. The patient reported a VAS score of 6 prior to the procedure and a post- procedure VAS of 0. POST OP INSTRUCTIONS The patient was provided a Pain Log to continue to record their response to the target-specific procedure prior to follow-up visit with their referring physician. Additionally, specific post-injection care instructions and a contact number to our office were provided if concerns arise regarding possible complications associated with the procedure are suspected.
== END 2021-12-22 09:30 | disposition home or self-care (01) ==
PROVIDERS: PCP Student in an Organized Health Care Education/Training Program; Referring Provider Physical Medicine & Rehabilitation; Visit Provider Physical Medicine & Rehabilitation
DX: M51.16 Intervertebral disc disorders with radiculopathy, lumbar region (principal); M48.061 Spinal stenosis, lumbar region without neurogenic claudication
CPT/HCPCS: 62323; 99152; J0702; J1100; J2250; J3010

== ENCOUNTER → 2021-12-30 09:51 | Outpatient (CLI) | payer MEDICARE, SELFPAY ==
[2021-12-09 11:01] VITALS: BMI 28.3
[2021-12-30 11:23] LABS: COVID19 -Nasal RAPID Negative (Negative)
== END ==
PROVIDERS: PCP Student in an Organized Health Care Education/Training Program; Visit Provider Family Medicine Sleep Medicine
DX: Z20.822 Contact with and (suspected) exposure to COVID-19 (principal)
CPT/HCPCS: 87635; C9803

== ENCOUNTER → 2021-12-31 13:41 | Outpatient (CLI) | payer MEDICARE, SELFPAY ==
[2021-12-09 11:01] VITALS: BMI 28.3
--- NOTE | 2021-12-31 13:43 | DI.ECHO.S_ITS ---
[facility] +---------+ : : [address] : : : : [id number] : : : : Phone: [phone]+ Echocardiogram Report + + :Name: EVELYN SMITH Study Date: 12/31/2021 Height: 69 in : :[facility] ReadingLocation: Weight: 185 lb : : Gender: Male BSA: 2.0 m2 : :: 1945 Age: 76 yrs BP: 135/89 mmHg: :Reason For Study: DYSPNEA ON EXERTION : :Ordering Physician: KAREN, : :JUAN Performed By: Autumn Pisano : :Referring: JUAN JONES : + + Interpretation Summary Normal sinus rhythm. Severe LVH; moderately reduce wall motion; EF is 45+/- 5% Severe LA enlargement; mild RA enlargement. No significant valvular abnormalities. Specifically, no LVOT obstruction and no systolic anterior motion. PLAN: 1. recommend cancelling stress test 2. recommend urgent cardiology consult 3. I called [phone] and left my phone number requesting callback. Procedure: A two-dimensional transthoracic echocardiogram with color flow and Doppler was performed. The study quality was technically adequate. There is no prior echocardiogram noted for this patient. The patient was in sinus rhythm with heart rates between 53-67 bpm during the exam. Left Ventricle: There is severe concentric left ventricular hypertrophy. The left ventricle is normal in size. Left ventricular ejection fraction is estimated to be 45 +/- 5%. Left ventricular global longitudinal strain average is -10.5%. Right Ventricle: The right ventricle is normal in size and function. Atria: The left atrium is severely dilated. The right atrium is mildly dilated. There is no Doppler evidence for an interatrial shunt. Mitral Valve: The mitral valve is normal in structure and function. There is trace mitral regurgitation. Aortic Valve: The aortic valve is mildly calcified. There is moderate aortic valve sclerosis. There is discrete nodular thickening of the non- coronary cusp. There is no aortic valve stenosis. There is trace aortic regurgitation. Tricuspid Valve: The tricuspid valve is normal in structure and function. There is trace tricuspid regurgitation. Pulmonic Valve: The pulmonic valve leaflets are thin and pliable; valve motion is normal. There is no pulmonic valvular regurgitation. Great Vessels: The aortic root is normal size. The ascending aorta is at the upper limits of normal in size. The IVC is of normal diameter and collapses greater than 50% with a sniff. This suggests a low right atrial pressure of 3 mm Hg. Pericardium/ Pleura There is no pericardial effusion. There is no pleural effusion. MMode/2D Measurements & Calculations LVIDd: 4.5 cm LVOT diam: 2.2 cm LVIDs: 3.8 cm Ao root diam: 3.6 cm FS: 16.7 % asc Aorta Diam: 3.8 cm IVSd: 1.9 cm Ao Arch Diam (Prox Trans): 3.3 cm LVPWd: 1.8 cm LV jha. diameter/BSA (cm/m^2): 2.3 LV sys. diameter/BSA (cm/m^2): 1.9 LA A2 area: 30.8 cm2 RA long axis: 5.6 cm LA A4 area: 25.8 cm2 RA area: 21.3 cm2 LA length (vol): 7.1 cm RA vol: 68.4 ml LA vol: 95.5 ml RA : 34.2 ml/m2 LA vol index: 47.8 ml/m2 IVC diam: 1.7 cm RVD1 (basal): 3.8 cm TAPSE: 1.7 cm Doppler Measurements & Calculations Ao V2 max: 142.7 cm/sec LVOT Max Bjorn: 80.1 cm/sec Ao V2 mean: 101.2 cm/sec LV V1 max P.6 mmHg Ao max P.2 mmHg LV V1 VTI: 14.5 cm Ao mean P.5 mmHg ROSARIO(I,D): 2.1 cm2 Ao V2 VTI: 25.7 cm ROSARIO(V,D): 2.1 cm2 sev ratio: 0.56 ROSARIO indexed to BSA (cm^2/m^2): 1.1 MV E max bjorn: 50.9 cm/sec PA V2 max: 81.9 cm/sec MV A max bjonr: 36.8 cm/sec PA V2 mean: 54.4 cm/sec MV E/A: 1.4 PA mean P.3 mmHg Med Peak E' Bjorn: 2.4 cm/sec PA pr(Accel): 31.0 mmHg E/E' med: 20.9 Lat Peak E' Bjorn: 4.5 cm/sec E/E' lat: 11.3 E/e' average: 16.1 MV dec time: 0.31 sec SV(OT): 54.2 ml Electronically signed by: Vera Jackson M.D. on Reading Physician:12/31/2021 03:01 PM
== END ==
PROVIDERS: PCP Student in an Organized Health Care Education/Training Program; Referring Provider Student in an Organized Health Care Education/Training Program; Visit Provider Student in an Organized Health Care Education/Training Program
DX: R06.00 Dyspnea, unspecified (principal); I35.8 Other nonrheumatic aortic valve disorders
CPT/HCPCS: 93306

== ENCOUNTER → 2022-01-26 07:27 | Outpatient (CLI) | payer MEDICARE, SELFPAY ==
[2021-12-09 11:01] VITALS: BMI 28.3
[2022-01-27 22:24] LABS: Free Kappa Lt Chains, Serum 22.7 mg/L (3.3-19.4); Free Lambda Lt Chains,Serum 13.4 mg/L (5.7-26.3)
[2022-01-28 15:23] LABS: Albumin 3.6 g/dL (2.9-4.4); Alpha-1-Globulin 0.2 g/dL (0.0-0.4); Alpha-2-Globulin 0.5 g/dL (0.4-1.0); Globulin Total 2.6 g/dL (2.2-3.9); Protein, Total 6.2 g/dL (6.0-8.5)
== END ==
PROVIDERS: PCP Student in an Organized Health Care Education/Training Program; Referring Provider Internal Medicine Cardiovascular Disease; Visit Provider Internal Medicine Cardiovascular Disease
DX: I42.9 Cardiomyopathy, unspecified (principal)
CPT/HCPCS: 36415; 83883; 84155; 84165

== ENCOUNTER → 2022-05-10 09:58 | Outpatient (CLI) | payer MEDICARE, SELFPAY ==
[2022-05-06 14:48] VITALS: BMI 28.3
[2022-05-10 12:28] LABS: COVID19 -Nasal RAPID Negative (Negative)
== END ==
PROVIDERS: PCP Student in an Organized Health Care Education/Training Program; Visit Provider Physical Medicine & Rehabilitation
DX: Z20.822 Contact with and (suspected) exposure to COVID-19 (principal)
CPT/HCPCS: 87635; C9803

== ENCOUNTER 2022-05-11 08:44 | Outpatient (CLI) | payer MEDICARE, SELFPAY ==
[2022-05-06 14:48] VITALS: BMI 28.3
[2022-05-11] VITALS (8 sets, daily range): BP systolic 138–152; BP diastolic 77–99; PULSE 47–67; RESP 12–18; TEMP 36.4; O2SAT 96–99
--- NOTE | 2022-05-11 08:45 | DI.RAD.S_ITS ---
PROCEDURE: PAIN L/S FACET INJ/BLK 1ST SARA COMPARISON: [facility], , PAIN L/S FACET INJ/BLK 1ST SARA, 06/11/2021, 8:08. INDICATIONS: SPONDYLOSIS FINDINGS: Fluoroscopic spot filming was performed to verify placement of spinal needles on both sides at the L4, L5, and S1 levels, as labeled on the films. Appropriate location of the needle tips was confirmed by injection of iodinated contrast. IMPRESSION: Intraprocedural examination demonstrating appropriate positions of the needles. Dictated by: Corwin Mcdaniel M.D. on 05/11/2022 at 11:24 Approved by: Corwin Mcdaniel M.D. on 05/11/2022 at 11:24
[2022-05-11] MEDS: MIDAZOLAM 2 MG/2 ML VIAL IV (09:33)
[2022-05-11] MEDS: LIDOCAINE 1% (PF) 5 ML INJ (09:37)
[2022-05-11] MEDS: BUPIVACAINE 0.5% (PF) VIAL 5 ML INJ (09:38)
[2022-05-11] MEDS: IOPAMIDOL 15 ML VIAL 3 ML INJ (09:38)
--- NOTE | 2022-05-11 09:55 | P.PCN_ITS ---
Date/Time/Diagnoses Date of procedure: 05/11/22 Time of procedure: 09:55 Pre-procedure diagnosis: 1. FACET ARTHROPATHY Post-procedure diagnosis: same Procedure Notes Procedure: 1. BILATERAL- L4, L5 and S1 DIAGNOSTIC MB BLOCKS with LA Anesthetic Indications: Sherwin is referred by Dr. Iniguez for treatment of Bilateral Axial LBP. Physician: Brain Hernandez Total Fluoroscopy time (seconds): 10 Total sedation minutes: 15 Complications: none Procedure in detail & Post-procedure care: DESCRIPTION OF PROCEDURE Fluoroscopically guided, contrast-controlled bilateral L4, L5 and S1 medial branch blocks with 0.5cc of 0.5% Marcaine. Following review of allergy and review of potential side effects and complications, including, but not necessarily limited to, infection, allergic reaction, local tissue breakdown, nerve injury, paralysis, stroke and possible , the patient indicated that the patient understood and agreed to proceed. An informed consent document was signed by the patient, witnessed by a nurse, and placed in the patient's chart. After review of previous anaesthesic history and IV conscious sedation the patient was deemed safe to proceed with today's procedure with IV conscious sedation as ASA class II designation. Safety time-out was performed to confirm patient ID, procedure to be performed and site of procedure. IV sedation was accomplished with a combination of 2mg of Versed was administered by the RN after DO order, titrated to patient comfort during the course of the procedure while the patient remained responsive to all verbal commands In the prone position, following sterile prep and drape of the lumbar region, the right L4, L5 and S1 anatomical location of the medial branch of the dorsal ramus was identified fluoroscopically. Subsequently an anesthetic skin wheal using 1% lidocaine solution was initiated at each of the anatomical spots. Subsequently then a 22-gauge 3.5-inch spinal needle was atraumatically introduced and advanced under fluoroscopic guidance at each of the corresponding sites at the right L4, L5 and S1 MB. After negative aspiration, 0.2cc of Isovue 200 was injected, confirming placement without vascular or intrathecal uptake. Subsequently then 0.5cc of 0.5% Marcaine solution was injected at each of the corresponding sites at the right L4, L5 and S1 medial branch locations. The identical procedure was replicated on the left. The patient tolerated the procedure well without signs or symptoms of complications prior to transfer to the recovery area continued monitoring without incident. Post-procedure, the patient was monitored initiating provocative activities to measure the amount of relief from block of the facetogenic pain. The patient reported a VAS of 7 prior to the procedure and a post-procedure VAS of 1. It has been a pleasure to assist in the diagnostic and therapeutic care of your patient. POST OP INSTRUCTIONS The patient was provided with a Pain Log to complete over the next several hours and subsequent days prior to the patient's follow up with the ordering physician. If the patient has applications processor relief to the solution applied, then they may be a candidate for medial branch rhizotomy. The patient is aware, was provided, once again, with a Pain Log and will follow up with the referring physician for review and clinical correlation
== END 2022-05-11 10:20 | disposition home or self-care (01) ==
LOC: RAD 08:45
PROVIDERS: PCP Student in an Organized Health Care Education/Training Program; Referring Provider Physical Medicine & Rehabilitation; Visit Provider Physical Medicine & Rehabilitation
DX: M47.816 Spondylosis without myelopathy or radiculopathy, lumbar region (principal); M47.817 Spondylosis without myelopathy or radiculopathy, lumbosacral region
CPT/HCPCS: 64493; 64494; 64495; 99152; J2250

== ENCOUNTER → 2022-07-12 09:16 | Outpatient (CLI) | payer MEDICARE, SELFPAY ==
[2022-05-06 14:48] VITALS: BMI 28.3
[2022-07-12 14:04] LABS: COVID19 -Nasal RAPID Negative (Negative)
== END ==
PROVIDERS: PCP Student in an Organized Health Care Education/Training Program; Visit Provider Physical Medicine & Rehabilitation
DX: Z20.822 Contact with and (suspected) exposure to COVID-19 (principal)
CPT/HCPCS: 87635; C9803

== ENCOUNTER 2022-07-13 08:22 | Outpatient (CLI) | payer MEDICARE, SELFPAY ==
[2022-05-06 14:48] VITALS: BMI 28.3
[2022-07-13] VITALS (9 sets, daily range): BP systolic 118–148; BP diastolic 69–87; PULSE 54–68; RESP 15–21; TEMP 36.3; O2SAT 96–99
--- NOTE | 2022-07-13 08:24 | DI.RAD.S_ITS ---
PROCEDURE: PAIN L/S FACET INJ/BLK 1ST SARA COMPARISON: Located Within [facility], , PAIN L/S FACET INJ/BLK 1ST SARA, 05/11/2022, 9:38. INDICATIONS: SPONDYLOSIS FINDINGS: Fluoroscopic spot filming was performed to verify placement of spinal needles on both sides at the L4, L5, and S1 levels, as labeled on the films. Appropriate location of the needle tips was confirmed by injection of iodinated contrast. IMPRESSION: Intraprocedural examination demonstrating appropriate positions of the needles. Dictated by: Corwin Mcdaniel M.D. on 07/13/2022 at 9:08 Approved by: Corwin Mcdaniel M.D. on 07/13/2022 at 9:09
[2022-07-13] MEDS: MIDAZOLAM 2 MG/2 ML VIAL IV (09:12)
[2022-07-13] MEDS: LIDOCAINE 1% 20 ML 5 ML INJ (09:19)
[2022-07-13] MEDS: IOPAMIDOL 15 ML VIAL 3 ML INJ (09:19)
[2022-07-13] MEDS: BUPIVACAINE 0.5% (PF) VIAL 5 ML SUBCUT (09:23)
--- NOTE | 2022-07-13 09:30 | P.PCN_ITS ---
Date/Time/Diagnoses Date of procedure: 07/13/22 Time of procedure: 09:30 Pre-procedure diagnosis: 1. FACET ARTHROPATHY Post-procedure diagnosis: same Procedure Notes Procedure: 1. BILATERAL- L4, L5 and S1 DIAGNOSTIC MB BLOCKS with SA Anesthetic Indications: Sherwin is referred by Dr. Iniguez for treatment of Bilateral Axial LBP. Physician: Brain Hernandez Total Fluoroscopy time (seconds): 12 Total sedation minutes: 13 Complications: none Procedure in detail & Post-procedure care: DESCRIPTION OF PROCEDURE Fluoroscopically guided, contrast-controlled bilateral L4, L5 and S1 medial branch blocks with 0.5cc of 2% Lidocaine. Following review of allergy and review of potential side effects and complications, including, but not necessarily limited to, infection, allergic reaction, local tissue breakdown, nerve injury, paralysis, stroke and possible , the patient indicated that the patient understood and agreed to proceed. An informed consent document was signed by the patient, witnessed by a nurse, and placed in the patient's chart. After review of previous anaesthesic history and IV conscious sedation the patient was deemed safe to proceed with today's procedure with IV conscious sedation as ASA class II designation. Safety time-out was performed to confirm patient ID, procedure to be performed and site of procedure. IV sedation was accomplished with a combination of 2mg of Versed was administered by the RN after DO order, titrated to patient comfort during the course of the procedure while the patient remained responsive to all verbal commands In the prone position, following sterile prep and drape of the lumbar region, the right L4, L5 and S1 anatomical location of the medial branch of the dorsal ramus was identified fluoroscopically. Subsequently an anesthetic skin wheal u sing 1% lidocaine solution was initiated at each of the anatomical spots. Subsequently then a 22-gauge 3.5-inch spinal needle was atraumatically introduced and advanced under fluoroscopic guidance at each of the corresponding sites at the right L4, L5 and S1 MB. After negative aspiration, 0.2cc of Isovue 200 was injected, confirming placement without vascular or intrathecal uptake. Subsequently then 0.5cc of 2% Lidocaine solution was injected at each of the corresponding sites at the right L4, L5 and S1 medial branch locations. The identical procedure was replicated on the left. The patient tolerated the procedure well without signs or symptoms of complications prior to transfer to the recovery area continued monitoring without incident. Post-procedure, the patient was monitored initiating provocative activities to measure the amount of relief from block of the facetogenic pain. The patient reported a VAS of 7 prior to the procedure and a post-procedure VAS of 1. It has been a pleasure to assist in the diagnostic and therapeutic care of your patient. POST OP INSTRUCTIONS The patient was provided with a Pain Log to complete over the next several hours and subsequent days prior to the patient's follow up with the ordering physician. If the patient has nuisance wildlife trapper relief to the solution applied, then they may be a candidate for medial branch rhizotomy. The patient is aware, was provided, once again, with a Pain Log and will follow up with the referring physician for review and clinical correlation
== END 2022-07-13 09:52 | disposition home or self-care (01) ==
LOC: RAD 08:23
PROVIDERS: PCP Student in an Organized Health Care Education/Training Program; Referring Provider Physical Medicine & Rehabilitation; Visit Provider Physical Medicine & Rehabilitation
DX: M47.816 Spondylosis without myelopathy or radiculopathy, lumbar region (principal); M47.817 Spondylosis without myelopathy or radiculopathy, lumbosacral region
CPT/HCPCS: 64493; 64494; 99152; J2250

== ENCOUNTER 2022-09-14 07:36 | Outpatient (CLI) | payer MEDICARE, SELFPAY ==
[2022-05-06 14:48] VITALS: BMI 28.3
[2022-09-14] VITALS (13 sets, daily range): BP systolic 103–130; BP diastolic 62–96; PULSE 58–68; RESP 12–19; TEMP 36.6; O2SAT 95–100
--- NOTE | 2022-09-14 07:42 | DI.RAD.S_ITS ---
PROCEDURE: PAIN L/S MED/LAT N RFA BILAT INDICATIONS: SPONDYLOSIS COMPARISON: [facility], XA, PAIN L/S FACET INJ/BLK 1ST SARA, 07/13/2022, 9:15. [facility], XA, PAIN L/S FACET INJ/BLK 1ST SARA, 05/11/2022, 9:38. FINDINGS: Fluoroscopic spot filming was performed to verify placement of spinal needles on both sides at the L4, L5, and S1 levels, as labeled on the films. IMPRESSION: Images during rhizotomy within normal limits. Dictated by: Corwin Mcdaniel M.D. on 09/14/2022 at 9:11 Approved by: Corwin Mcdaniel M.D. on 09/14/2022 at 9:11
[2022-09-14] MEDS: MIDAZOLAM 2 MG/2 ML VIAL IV (08:36)
[2022-09-14] MEDS: BUPIVACAINE 0.5% MDV 5 ML SUBCUT (08:45)
[2022-09-14] MEDS: LIDOCAINE 1% 20 ML 5 ML INJ (08:47)
--- NOTE | 2022-09-14 09:20 | P.PCN_ITS ---
Date/Time/Diagnoses Date of procedure: 09/14/22 Time of procedure: 09:20 Pre-procedure diagnosis: 1. RECALCITRANT FACET ARTHROPATHY Post-procedure diagnosis: same Procedure Notes Procedure: 1. BILATERAL L4 AND L5 MEDIAL BRANCH RADIOFREQUENCY NEUROTOMY AND S1 DORSAL RAMUS BRANCH RADIOFREQUENCY NEUROTOMY Indications: Sherwin is referred by Dr. Iniguez for treatment of facet arthropathy. Physician: Brain Hernandez Total Fluoroscopy time (seconds): 26 Total sedation minutes: 40 Complications: none Procedure in detail & Post-procedure care: DESCRIPTION OF PROCEDURE Bilateral L4 and L5 medial branch radiofrequency neurotomy and bilateral S1 dorsal ramus radiofrequency neurotomy under fluoroscopy with conscious sedation. The patient is well known to this clinic having undergone previous facet injections with good but temporary relief. The patient has experienced appropriate, concordant relief with previous facet and median branch blocks but the patient's pain has been recalcitrant to further conservative measures. Therefore, based upon the patient's relief and persistent symptoms, the patient is considered an appropriate candidate for facet rhizotomy. All of the patient's questions regarding the risks versus benefits of the procedure, including, but not limited to, bleeding, infection, temporary as well as lasting nerve injury, paralysis, stroke, and , as well treatment alternatives were answered to satisfaction. After obtaining informed consent, denial of pertinent drug allergies, as well as being made aware of the potential risks of bleeding, infection, spinal cord trauma, paralysis, temporary and permanent nerve damage, seizure, stroke, and possible , the patient was brought to the fluoroscopy suite and positioned prone on the fluoroscopy table. The lumbar region was prepped with Betadine and covered with a fenestrated drape in the usual sterile fashion. Appropriate monitors applied including pulse oximeter, pulse, and blood pressure for regular monitoring throughout the procedure. After review of previous anaesthesic history and IV conscious sedation the patient was deemed safe to proceed with today's procedure with IV conscious sedation as ASA class II designation. Safety time-out was performed to confirm patient ID, procedure to be performed and site of procedure. IV sedation was accomplished with a combination of 2mg of Versed administered by the RN after DO order, titrated to patient comfort during the course of the procedure while the patient remained responsive to all verbal commands. After local infiltration using 1% lidocaine, under fluoroscopic guidance, a 10- cm RF insulated needle with a 10-mm active tip was positioned parallel to the junction of the right sacral ala and the superior articulating process where the S1 dorsal ramus resides. Needle placement was confirmed with motor stimulation of .5v on the right which produced local stimulation without radicular component. The stimulation was then increased to 2v with, once again, only local multifidus stimulation without radicular component. The needle was then removed and the identical procedure was performed along the length of the right L5 medial branch with motor stimulation at .7v on the right. The identical procedure was once again performed along the length of the right L4 medial branch with motor stimulation of .5v on the right. The medial branches were then anesthetised with 0.5% Marcaine. This was then followed by two discreet lesions performed at 80 degrees Celsius for 90 seconds each. The identical procedure was repeated on the left. The patient tolerated the procedure well without signs or symptoms of complications prior to transfer to the recovery area continued monitoring without incident. The patient was then transferred to the recovery area where they were observed for an appropriate period of time after the injection. The patient reported a VAS score of 9 prior to the procedure and a post-procedure VAS of 0. POST OP INSTRUCTIONS The patient was provided a Pain Log to continue to record the patient's response to the target-specific procedure prior to the patient's follow-up visit with the referring physician. Additionally, specific post-injection care instructions and a contact number to our office were provided if concerns arise regarding possible complications associated with the procedure are suspected.
== END 2022-09-14 09:40 | disposition home or self-care (01) ==
LOC: RAD 07:36
PROVIDERS: PCP Student in an Organized Health Care Education/Training Program; Referring Provider Physical Medicine & Rehabilitation; Visit Provider Physical Medicine & Rehabilitation
DX: M47.816 Spondylosis without myelopathy or radiculopathy, lumbar region (principal); M47.817 Spondylosis without myelopathy or radiculopathy, lumbosacral region
CPT/HCPCS: 64635; 64636; 99152; 99153; J2250

== ENCOUNTER → 2022-11-16 07:43 | Outpatient (CLI) | payer MEDICARE, SELFPAY ==
[2022-05-06 14:48] VITALS: BMI 28.3
[2022-11-16 08:32] LABS: Creatinine Urine Random 158.5 mg/dL
[2022-11-16 08:36] LABS: Protein (Total) Urine Random < 5 mg/dL (0-12); Protein Creatinine Ratio Urine 0.03 GRAM/24H
[2022-11-16 08:39] LABS: NT-proBNP (BNP-Adult 18+) 2950 pg/mL (<450)
== END ==
PROVIDERS: PCP Student in an Organized Health Care Education/Training Program; Referring Provider Internal Medicine Cardiovascular Disease; Visit Provider Internal Medicine Cardiovascular Disease
DX: R06.00 Dyspnea, unspecified (principal); I42.9 Cardiomyopathy, unspecified
CPT/HCPCS: 36415; 82570; 83880; 84156

== ENCOUNTER → 2022-11-30 14:21 | Outpatient (CLI) | payer MEDICARE, SELFPAY ==
[2022-05-06 14:48] VITALS: BMI 28.3
--- NOTE | 2022-11-30 | DI.US.S_ITS ---
PROCEDURE: US RENAL COMPLETE INDICATIONS: ACQUIRED KIDNEY CYST TECHNIQUE: Real-time scanning was performed of the kidneys and bladder, with image documentation. COMPARISON: [facility], CT, ABDOMEN WITH CONTRAST, 11/22/2017, 10:25. [facility], US, US ABDOMEN COMPLETE, 08/22/2018, 8:47. FINDINGS: Kidneys: Kidneys are normal in size. Right kidney measures 10 cm long; left kidney measures 10.1 cm long. Right renal cortical thickness is 1.1 cm; left renal cortical thickness is 1.4 cm. Renal cortical echotexture is normal. No hydronephrosis or nephrolithiasis. No suspicious solid mass lesions. Multiple bilateral renal cyst redemonstrated, the largest of which is on the right measuring up to 2.2 cm not significant changed from prior examination. Bladder: Pre-void bladder volume is 269 mL. Post-void residual is 71 mL. Pre-void images demonstrate no intraluminal masses or stones. On pre-void images, bilateral ureteral jets are noted with color Doppler interrogation. (Of note, ureteral jets may not be detectable in up to 25% of cases due to insufficient differences in specific gravity between ureteral and bladder urine). Miscellaneous: No free pelvic fluid. IMPRESSION: 1. Bilateral renal cysts redemonstrated similar prior examination; otherwise kidneys are normal bilaterally. 2. 71 cc postvoid residual. Dictated by: Tank Miller [facility] Interpreted: Rupesh Bull MD on 12/01/2022 at 9:47 Transcribed by: RITESH on 12/01/2022 at 9:53 Approved by: Rupesh Bull M.D. on 12/01/2022 at 11:35
== END ==
PROVIDERS: PCP Student in an Organized Health Care Education/Training Program; Referring Provider Internal Medicine Cardiovascular Disease; Visit Provider Internal Medicine Cardiovascular Disease
DX: N28.1 Cyst of kidney, acquired (principal)
CPT/HCPCS: 76770

== ENCOUNTER 2023-02-03 09:34 | Outpatient (CLI) | payer MEDICARE, SELFPAY ==
[2022-05-06 14:48] VITALS: BMI 28.3
[2023-02-03] VITALS (7 sets, daily range): BP systolic 121–146; BP diastolic 74–92; PULSE 57–68; RESP 13–18; TEMP 36.1; O2SAT 94–98
--- NOTE | 2023-02-03 09:35 | DI.RAD.S_ITS ---
PROCEDURE: PAIN L INTERLAMINAR/CAUDAL INJ INDICATIONS: SPONDYLOSIS COMPARISON: [facility], , PAIN L INTERLAMINAR/CAUDAL INJ, 12/22/2021, 10:02. FINDINGS: Fluoroscopic spot filming was performed to verify placement of a spinal needle at the L3-L4 level, as labeled on the films. Appropriate location of the needle tip was confirmed by injection of iodinated contrast. IMPRESSION: Intraprocedural examination within normal limits. Dictated by: Corwin Mcdaniel M.D. on 02/03/2023 at 11:24 Approved by: Corwin Mcdaniel M.D. on 02/03/2023 at 11:25
[2023-02-03] MEDS: MIDAZOLAM 2 MG/2 ML VIAL IV (10:41)
[2023-02-03] MEDS: BETAMETHASONE 30 MG/5 ML MDV 6 MG INJ (10:45)
[2023-02-03] MEDS: BUPIVACAINE 0.25% (PF) VIAL 2 ML SUBCUT (10:46)
[2023-02-03] MEDS: DEXAMETHASONE 10 MG/ML VIAL 20 MG INJ (10:47)
[2023-02-03] MEDS: IOPAMIDOL 15 ML VIAL 3 ML INJ (10:48)
--- NOTE | 2023-02-03 10:57 | P.PCN_ITS ---
Date/Time/Diagnoses Date of procedure: 02/03/23 Time of procedure: 10:57 Pre-procedure diagnosis: 1. HNP WITH RADICULAR FEATURES, 2. MULTILEVEL CENTRAL STENOSIS, Post-procedure diagnosis: same Procedure Notes Procedure: 1. FLUOROSCOPICALLY GUIDED CONTRAST CONTROLLED INTERLAMINAR EPIDURAL STEROID INJECTION - L3/4 Indications: Sherwin is referred by Dr. Iniguez for treatment of Bilateral Foraminal Stenosis L>R LE symptoms. Physician: Brain Henrandez Total Fluoroscopy time (seconds): 8 Total sedation minutes: 11 Complications: none Procedure in detail & Post-procedure care: FINDINGS Multilevel Central Spinal Stenosis with Nerve Root Compression DESCRIPTION OF PROCEDURE Fluoroscopically guided, contrast-controlled L3/4 translaminar epidural steroid injection. Following review of allergy and review of potential side effects and complications, including, but not necessarily limited to, infection, allergic reaction, local tissue breakdown, temporary as well as permanent nerve injury, paralysis, stroke and possible , the patient indicated that the patient understood and agreed to proceed. An informed consent document was signed by the patient, witnessed by a nurse, and placed in the patient's chart. Additionally, other treatment options including modalities, medications, and physical therapy were reviewed with the patient. After review of previous anaesthesic history and IV conscious sedation the patient was deemed safe to proceed with today?s procedure with IV conscious sedation as ASA class II designation. Safety time-out was performed to confirm patient ID, procedure to be performed and site of procedure. IV sedation was accomplished with a combination of 2mg of Versed was administered by the RN after DO order, titrated to patient comfort during the course of the procedure while the patient remained responsive to all verbal commands. In the prone position, following sterile prep and drape of the lumbar region, the L3/4 translaminar space was identified fluoroscopically. The skin was anesthetized via a 25-gauge, 1.5-inch needle with 1% lidocaine solution. At this point, a 22-gauge short bevel spinal needle was atraumatically introduced and advanced under fluoroscopic guidance into the region of the L3/4 translaminar space. Depth was confirmed on lateral view. Radiological data, including multiple fluoroscopic views of the lumbar spine, reveal a spinal needle at the L3/4 translaminar space. Lateral views then show placement of the needle in the epidural space. Subsequent views show contrast material flowing superiorly and inferiorly in the epidural space. No vascular or intrathecal uptake is observed. At this point, using loss of resistance technique with saline and air, the epidural space was entered. This was confirmed following negative aspiration with injection of approximately 1.5 cc of Isovue 200, showing excellent epidural flow without vascular or intrathecal uptake. At this point, 1cc of 1% lidocaine solution combined with 3cc or 20mg of dexamethasone and 6mg of betamethasone was injected without incident. The patient tolerated the procedure well without signs or symptoms of complications prior to transfer to the recovery area continued monitoring without incident. The patient was then transferred to the recovery area where they were observed for an appropriate period of time after the injection. The patient reported a VAS score of 6 prior to the procedure and a post- procedure VAS of 0. POST OP INSTRUCTIONS The patient was provided a Pain Log to continue to record their response to the target-specific procedure prior to follow-up visit with their referring physician. Additionally, specific post-injection care instructions and a contact number to our office were provided if concerns arise regarding possible complications associated with the procedure are suspected.
== END 2023-02-03 11:14 | disposition home or self-care (01) ==
LOC: RAD 09:34
PROVIDERS: PCP Student in an Organized Health Care Education/Training Program; Referring Provider Physical Medicine & Rehabilitation; Visit Provider Physical Medicine & Rehabilitation
DX: M51.16 Intervertebral disc disorders with radiculopathy, lumbar region (principal); M48.061 Spinal stenosis, lumbar region without neurogenic claudication
CPT/HCPCS: 62323; 99152; J0702; J1100; J2250; J3490

== ENCOUNTER → 2023-04-25 06:41 | Outpatient (CLI) | payer MEDICARE, SELFPAY ==
[2022-05-06 14:48] VITALS: BMI 28.3
--- NOTE | 2023-04-25 | DI.ECHO.S_ITS ---
[facility] +---------+ : : [id number] : : : : [id number] : : : : Phone: [phone]---------+ Echocardiogram Report + + :Name: EVELYN SMITH Study Date: 04/25/2023 Height: 69 in : :[facility] ReadingLocation: Weight: 180 lb : : Gender: Male BSA: 2.0 m2 : :: 1945 Age: 77 yrs BP: 115/72 mmHg: :Reason For Study: CARDIOMYOPATHY : :Ordering Physician: SOPHIA, : :CLYDE Performed By: Autumn Pisano : :Referring: CLYDE TOWNSEND : + + Interpretation Summary 1) Severely increased left ventricular thickness (concentric) with normal size and mildly to moderately reduced systolic function (EF 40-45%). Left ventricular global longitudinal strain average is -8.2%. 2) Normal right ventricular size with low normal function. 3) Severe left atrial enlargement present. 4) There is mild aortic stenosis. 5) Compared to the Echo done 12/31/2021, mild aortic stenosis present on this study. Procedure: A two-dimensional transthoracic echocardiogram with color flow and Doppler was performed. The study quality was technically good. Comparison is made with the echocardiogram of 12/31/2021. The patient was in sinus bradycardia with heart rates between 54-65 bpm during the exam. Left Ventricle: The left ventricle is normal in size. There is severe concentric left ventricular hypertrophy. There is no echo evidence for significant left ventricular outflow tract obstruction. Left ventricular global longitudinal strain average is -8.2%. Previous left ventricular global longitudinal strain average is -10.5% on 12/31/2021. The ejection fraction is estimated to be 40-45%. Diastolic parameters suggest a restrictive filling pattern consistent with probable significantly elevated filling pressures. Right Ventricle: The right ventricle is normal size. Right ventricular systolic function is at the lower limits of normal. Atria: The left atrium is severely dilated. The right atrium is moderately dilated. There is no Doppler evidence for an interatrial shunt. Mitral Valve: The mitral valve is normal in structure and function. There is mild mitral regurgitation. Aortic Valve: There is moderate aortic valve sclerosis. The aortic valve is mildly calcified. There is discrete nodular thickening of the non- coronary cusp. There is mild aortic stenosis. No aortic regurgitation is present. Tricuspid Valve: The tricuspid valve is normal in structure and function. There is mild tricuspid regurgitation. Pulmonary artery pressures cannot be estimated because of the lack of a measurable TR jet velocity but the IVC suggests a CVP of around 3 mmHg. Pulmonic Valve: The pulmonic valve leaflets are thin and pliable; valve motion is normal. There is trace pulmonic regurgitation. Great Vessels: The aortic root is normal size. The dimensions of the ascending aorta are normal. The IVC is of normal diameter and collapses greater than 50% with a sniff. This suggests a low right atrial pressure of 3 mm Hg. Pericardium/ Pleura There is no pericardial effusion. There is no pleural effusion. MMode/2D Measurements & Calculations LVIDd: 4.5 cm LVOT diam: 2.1 cm LVIDs: 3.7 cm Ao root diam: 3.5 cm FS: 17.1 % asc Aorta Diam: 3.7 cm EPSS: 1.0 cm Ao Arch Diam (Prox Trans): 2.9 cm IVSd: 2.1 cm LVPWd: 1.8 cm LV jha. diameter/BSA (cm/m^2): 2.3 LV sys. diameter/BSA (cm/m^2): 1.9 LA A2 area: 30.4 cm2 RA long axis: 5.8 cm LA A4 area: 27.0 cm2 RA area: 25.2 cm2 LA length (vol): 6.3 cm RA vol: 92.6 ml LA vol: 110.5 ml RA : 46.9 ml/m2 LA vol index: 55.9 ml/m2 IVC diam: 1.8 cm RVD1 (basal): 3.4 cm RVD2 (mid): 2.4 cm TAPSE: 1.7 cm Doppler Measurements & Calculations Ao V2 max: 142.1 cm/sec LVOT Max Bjorn: 72.2 cm/sec Ao V2 mean: 102.3 cm/sec LV V1 max P.1 mmHg Ao max P.1 mmHg LV V1 VTI: 12.8 cm Ao mean P.6 mmHg ROSARIO(I,D): 1.7 cm2 Ao V2 VTI: 26.5 cm ROSARIO(V,D): 1.8 cm2 sev ratio: 0.48 ROSARIO indexed to BSA (cm^2/m^2): 0.86 MV E max bjorn: 58.6 cm/sec PA V2 max: 81.2 cm/sec MV A max bjorn: 19.5 cm/sec PA V2 mean: 56.2 cm/sec MV E/A: 3.0 PA mean P.4 mmHg Med Peak E' Bjorn: 2.3 cm/sec PA pr(Accel): 32.8 mmHg E/E' med: 25.4 Lat Peak E' Bjorn: 4.6 cm/sec E/E' lat: 12.7 E/e' average: 19.0 MV dec time: 0.26 sec Pulm A Revs Bjorn: 19.7 cm/sec SV(LVOT): 44.8 ml Pulm A Revs Dur: 0.17 sec Reading Physician:[id number] PM
== END ==
PROVIDERS: PCP Pediatrics; Referring Provider Internal Medicine Cardiovascular Disease; Visit Provider Internal Medicine Cardiovascular Disease
DX: I42.9 Cardiomyopathy, unspecified (principal)
CPT/HCPCS: 93306

== ENCOUNTER → 2023-04-27 07:54 | Outpatient (CLI) | payer MEDICARE, SELFPAY ==
[2022-05-06 14:48] VITALS: BMI 28.3
[2023-04-27 09:03] LABS: NT-proBNP (BNP-Adult 18+) 2480 pg/mL (<450); Troponin I 0.087 ng/mL (0.01-0.034)
== END ==
PROVIDERS: PCP Pediatrics; Referring Provider Internal Medicine Cardiovascular Disease; Visit Provider Internal Medicine Cardiovascular Disease
DX: E85.4 Organ-limited amyloidosis (principal); I43 Cardiomyopathy in diseases classified elsewhere
CPT/HCPCS: 36415; 83880; 84484

== ENCOUNTER 2023-06-02 08:28 | Outpatient (CLI) | payer MEDICARE, SELFPAY ==
[2022-05-06 14:48] VITALS: BMI 28.3
[2023-06-02] VITALS (8 sets, daily range): BP systolic 96–133; BP diastolic 61–80; PULSE 58–69; RESP 14–20; TEMP 36.3; O2SAT 96–98
--- NOTE | 2023-06-02 08:28 | DI.RAD.S_ITS ---
PROCEDURE: PAIN L INTERLAMINAR/CAUDAL INJ INDICATIONS: SPONDYLOSIS COMPARISON: [facility], XA, PAIN L INTERLAMINAR/CAUDAL INJ, 02/03/2023, 10:45. FINDINGS: Fluoroscopic spot filming was performed to verify placement of a spinal needle at the L3-L4 level, as labeled on the films. Appropriate location of the needle tip was confirmed by injection of iodinated contrast. IMPRESSION: Intraprocedural examination within normal limits. Dictated by: Corwin Mcdaniel M.D. on 06/02/2023 at 12:29 Approved by: Corwin Mcdaniel M.D. on 06/02/2023 at 12:30
[2023-06-02] MEDS: MIDAZOLAM 2 MG/2 ML VIAL IV (09:04)
[2023-06-02] MEDS: DEXAMETHASONE 10 MG/ML VIAL INJ (09:14)
[2023-06-02] MEDS: IOPAMIDOL 15 ML VIAL 3 ML INJ (09:14)
[2023-06-02] MEDS: BETAMETHASONE 30 MG/5 ML MDV 6 MG INJ (09:14)
[2023-06-02] MEDS: BUPIVACAINE 0.25% (PF) VIAL 2 ML INJ (09:15)
--- NOTE | 2023-06-02 09:20 | P.PCN_ITS ---
Date/Time/Diagnoses Date of procedure: 06/02/23 Time of procedure: 09:20 Pre-procedure diagnosis: 1. HNP WITH RADICULAR FEATURES, 2. MULTILEVEL CENTRAL STENOSIS, Post-procedure diagnosis: same Procedure Notes Procedure: 1. FLUOROSCOPICALLY GUIDED CONTRAST CONTROLLED INTERLAMINAR EPIDURAL STEROID INJECTION - L3/4 Indications: Sherwin is referred by Dr. Mccarty for treatment of Bilateral Foraminal Stenosis L>R LE symptoms. Physician: Brain Hernandez Total Fluoroscopy time (seconds): 7 Total sedation minutes: 10 Complications: none Procedure in detail & Post-procedure care: FINDINGS Multilevel Central Spinal Stenosis with Nerve Root Compression DESCRIPTION OF PROCEDURE Fluoroscopically guided, contrast-controlled L3/4 translaminar epidural steroid injection. Following review of allergy and review of potential side effects and complications, including, but not necessarily limited to, infection, allergic reaction, local tissue breakdown, temporary as well as permanent nerve injury, paralysis, stroke and possible , the patient indicated that the patient understood and agreed to proceed. An informed consent document was signed by the patient, witnessed by a nurse, and placed in the patient's chart. Additionally, other treatment options including modalities, medications, and physical therapy were reviewed with the patient. After review of previous anaesthesic history and IV conscious sedation the patient was deemed safe to proceed with today?s procedure with IV conscious sedation as ASA class II designation. Safety time-out was performed to confirm p atient ID, procedure to be performed and site of procedure. IV sedation was accomplished with a combination of 2mg of Versed was administered by the RN after DO order, titrated to patient comfort during the course of the procedure while the patient remained responsive to all verbal commands. In the prone position, following sterile prep and drape of the lumbar region, the L3/4 translaminar space was identified fluoroscopically. The skin was anesthetized via a 25-gauge, 1.5-inch needle with 1% lidocaine solution. At this point, a 22-gauge short bevel spinal needle was atraumatically introduced and advanced under fluoroscopic guidance into the region of the L3/4 translaminar space. Depth was confirmed on lateral view. Radiological data, including multiple fluoroscopic views of the lumbar spine, reveal a spinal needle at the L3/4 translaminar space. Lateral views then show placement of the needle in the epidural space. Subsequent views show contrast material flowing superiorly and inferiorly in the epidural space. No vascular or intrathecal uptake is observed. At this point, using loss of resistance technique with saline and air, the epidural space was entered. This was confirmed following negative aspiration with injection of approximately 1.5 cc of Isovue 200, showing excellent epidural flow without vascular or intrathecal uptake. At this point, 1cc of 1% lidocaine solution combined with 2cc or 10mg of dexamethasone and 6mg of betamethasone was injected without incident. The patient tolerated the procedure well without signs or symptoms of complications prior to transfer to the recovery area continued monitoring without incident. The patient was then transferred to the recovery area where they were observed for an appropriate period of time after the injection. The patient reported a VAS score of 6 prior to the procedure and a post- procedure VAS of 0. POST OP INSTRUCTIONS The patient was provided a Pain Log to continue to record their response to the target-specific procedure prior to follow-up visit with their referring physician. Additionally, specific post-injection care instructions and a contact number to our office were provided if concerns arise regarding possible complications associated with the procedure are suspected.
== END 2023-06-02 09:39 | disposition home or self-care (01) ==
PROVIDERS: PCP Pediatrics; Referring Provider Physical Medicine & Rehabilitation; Visit Provider Physical Medicine & Rehabilitation
DX: M51.16 Intervertebral disc disorders with radiculopathy, lumbar region (principal); M48.061 Spinal stenosis, lumbar region without neurogenic claudication
CPT/HCPCS: 62323; 99152; J0702; J1100; J2250; J3490

== ENCOUNTER 2023-10-11 13:54 | Outpatient (CLI) | payer MEDICARE, SELFPAY ==
[2022-05-06 14:48] VITALS: BMI 28.3
[2023-10-11] VITALS (8 sets, daily range): BP systolic 132–172; BP diastolic 72–102; PULSE 55–62; RESP 14–19; TEMP 36.1; O2SAT 95–98
--- NOTE | 2023-10-11 14:30 | DI.RAD.S_ITS ---
PROCEDURE: PAIN L/S TRANSFORAM INJECT SARA COMPARISON: [facility], MR, MR LUMBAR SPINE WO CON, 12/12/2021, 13:59. INDICATIONS: spinal stenosis FINDINGS: 8 intraoperative fluoroscopy images demonstrate needle placement at L3-L4. IMPRESSION: Fluoroscopy guidance for needle placement. Dictated by: Nathalie Tolbert M.D. on 10/11/2023 at 16:04 Approved by: Nathalie Tolbert M.D. on 10/11/2023 at 16:05
[2023-10-11] MEDS: MIDAZOLAM 2 MG/2 ML VIAL IV (15:04)
[2023-10-11] MEDS: BUPIVACAINE 0.25% (PF) VIAL 2 ML INJ (15:09)
[2023-10-11] MEDS: DEXAMETHASONE 10 MG/ML VIAL 20 MG INJ (15:09)
[2023-10-11] MEDS: BETAMETHASONE 30 MG/5 ML MDV 12 MG INJ (15:10)
[2023-10-11] MEDS: iopamidoL 15 ML VIAL 3 ML INJ (15:10)
--- NOTE | 2023-10-11 15:24 | PM.PROC.IR.1 ---
Date/Time/Diagnoses Date of procedure: 10/11/23 Time of procedure: 15:24 Pre-procedure diagnosis: 1. FORAMINAL STENOSIS WITH LE SYMPTOMS Post-procedure diagnosis: same Procedure Notes Procedure: 1. FLUOROSCOPICALLY GUIDED CONTRAST CONTROLLED TRANSFORAMINAL EPIDURAL STEROID INJECTION - BILATERAL L3/4 TFESI Indications: Sherwin is referred by Dr. Wadsworth for treatment of Foraminal Stenosis with bilateral LE Symptoms Physician: Brain Hernandez Total Fluoroscopy time (seconds): 15 Total sedation minutes: 17 Complications: none Procedure in detail & Post-procedure care: FINDINGS Foraminal Nerve Root Compression secondary to disc disease and facet hypertrophy DESCRIPTION OF PROCEDURE Following review of allergy and review of potential side effects and complications, including, but not necessarily limited to, infection, allergic reaction, local tissue breakdown, stroke, temporary or permanent nerve injury, paralysis, and possible , the patient indicated that the patient understood and agreed to proceed. An informed consent document was signed by the patient, witnessed by a nurse, and placed in the patient's chart. Additionally, other treatment options including medications, modalities, and physical therapy were reviewed with the patient. After review of previous anaesthesic history and IV conscious sedation the patient was deemed safe to proceed with today?s procedure with IV conscious sedation as ASA class II designation. Safety time-out was performed to confirm patient ID, procedure to be performed and site of procedure. IV sedation was accomplished with a combination of 2mg of Versed was administered by the RN after DO order, titrated to patient comfort during the course of the procedure while the patient remained responsive to all verbal commands In the prone position following sterile prep and drape of the lumbar region, the right L3/4 posterior neuroforamen was identified fluoroscopically. The skin was anesthetized via a 25-gauge 1.5-inch needle with 1% lidocaine solution. At this point, a 25-gauge 3.5-inch spinal needle was atraumatically introduced and advanced under fluoroscopic guidance through the posterior right L3/4 neuroforamen to approximately the anterior aspect of the canal. Depth was confirmed on lateral view. Following negative aspiration, injection of approximately 1.5cc of Isovue 200 under live fluoroscopy in the AP view confirmed excellent flow along the nerve root, into the epidural space without vascular or intrathecal uptake observed Radiological data, including multiple fluoroscopic views of the lumbosacral spine, reveal a spinal needle at the right L3/4 posterior neuroforamen. Subsequent views show flow of contrast material flowing superiorly and inferiorly along the nerve root confirming epidural flow. Subsequently, a test dose of 1.5cc of 1% lidocaine solution was administered and patient was observed for two minutes for signs or symptoms of complications, including abdominal pain, shortness of breath, bilateral upper or lower extremity weakness, nausea and vomiting, prior to steroid injection. At this point, a total of 2cc or 10mg of dexamethasone and 6mg betamethasone was injected without incident. Attention was then refocused to the left L3/4 level where the identical procedure was replicated. The procedure tolerated the procedure well without signs or symptoms of complications prior to transfer to the recovery area continued monitoring without incident. The patient was then transferred to the recovery area where they were observed for an appropriate time after the injection. The patient reported a VAS score of 7 prior to the procedure and a post-procedure VAS of 0. POST OP INSTRUCTIONS The patient was provided a Pain Log to continue to record their response to the target-specific procedure prior to follow-up visit with their referring physician. Additionally, specific post-injection care instructions and a contact number to our office were provided if concerns arise regarding possible complications associated with the procedure are suspected.
== END 2023-10-11 15:58 | disposition home or self-care (01) ==
PROVIDERS: PCP Family Medicine; Referring Provider Physical Medicine & Rehabilitation; Visit Provider Physical Medicine & Rehabilitation
DX: M48.061 Spinal stenosis, lumbar region without neurogenic claudication (principal); M51.16 Intervertebral disc disorders with radiculopathy, lumbar region; M47.26 Other spondylosis with radiculopathy, lumbar region
CPT/HCPCS: 64483; 99152; J0702; J1100; J2250; J3490

== ENCOUNTER 2024-02-14 08:07 | Outpatient (CLI) | payer MEDICARE, SELFPAY ==
[2022-05-06 14:48] VITALS: BMI 28.3
[2024-02-14] VITALS (8 sets, daily range): BP systolic 116–133; BP diastolic 75–82; PULSE 56–62; RESP 12–19; TEMP 36.1; O2SAT 97–99
--- NOTE | 2024-02-14 08:45 | DI.RAD.S_ITS ---
PROCEDURE: PAIN L/S TRANSFORAM INJECT SARA COMPARISON: [facility], XA, PAIN L/S TRANSFORAM INJECT SARA, 10/11/2023, 16:07. INDICATIONS: Bilateral L3-4 transforaminal TRAVIS FINDINGS: Fluoroscopic guidance utilized for a bilateral L3-4 transforaminal epidural steroid injection. IMPRESSION: Fluoroscopic guidance for an epidural steroid injection at L3-4. Dictated by: Rupesh Bull M.D. on 02/14/2024 at 12:29 Approved by: Rupesh Bull M.D. on 02/14/2024 at 12:29
[2024-02-14] MEDS: MIDAZOLAM 2 MG/2 ML VIAL IV (09:08)
[2024-02-14] MEDS: BETAMETHASONE 30 MG/5 ML MDV 12 MG INJ (09:13)
[2024-02-14] MEDS: DEXAMETHASONE 10 MG/ML VIAL 20 MG INJ (09:13)
[2024-02-14] MEDS: BUPIVACAINE 0.25% (PF) VIAL 2 ML INJ (09:13)
[2024-02-14] MEDS: iopamidoL 15 ML VIAL 3 ML INJ (09:13)
--- NOTE | 2024-02-14 09:30 | PM.PROC.IR.1 ---
Date/Time/Diagnoses Date of procedure: 02/14/24 Time of procedure: 09:30 Pre-procedure diagnosis: 1. FORAMINAL STENOSIS WITH LE SYMPTOMS Post-procedure diagnosis: same Procedure Notes Procedure: 1. FLUOROSCOPICALLY GUIDED CONTRAST CONTROLLED TRANSFORAMINAL EPIDURAL STEROID INJECTION - BILATERAL L3/4 TFESI Indications: Sherwin is referred by Dr. Wadsworth for treatment of Foraminal Stenosis with bilateral LE Symptoms Physician: Brain Hernandez Total Fluoroscopy time (seconds): 17 Total sedation minutes: 17 Complications: none Procedure in detail & Post-procedure care: FINDINGS Foraminal Nerve Root Compression secondary to disc disease and facet hypertrophy DESCRIPTION OF PROCEDURE Following review of allergy and review of potential side effects and complications, including, but not necessarily limited to, infection, allergic reaction, local tissue breakdown, stroke, temporary or permanent nerve injury, paralysis, and possible , the patient indicated that the patient understood and agreed to proceed. An informed consent document was signed by the patient, witnessed by a nurse, and placed in the patient's chart. Additionally, other treatment options including medications, modalities, and physical therapy were reviewed with the patient. After review of previous anaesthesic history and IV conscious sedation the patient was deemed safe to proceed with today?s procedure with IV conscious sedation as ASA class II designation. Safety time-out was performed to confirm patient ID, procedure to be performed and site of procedure. IV sedation was accomplished with a combination of 2mg of Versed was administered by the RN after DO order, titrated to patient comfort during the course of the procedure while the patient remained responsive to all verbal commands In the prone position following sterile prep and drape of the lumbar region, the right L3/4 posterior neuroforamen was identified fluoroscopically. The skin was anesthetized via a 25-gauge 1.5-inch needle with 1% lidocaine solution. At this point, a 25-gauge 3.5-inch spinal needle was atraumatically introduced and advanced under fluoroscopic guidance through the posterior right L3/4 neuroforamen to approximately the anterior aspect of the canal. Depth was confirmed on lateral view. Following negative aspiration, injection of approximately 1.5cc of Isovue 200 under live fluoroscopy in the AP view confirmed excellent flow along the nerve root, into the epidural space without vascular or intrathecal uptake observed Radiological data, including multiple fluoroscopic views of the lumbosacral spine, reveal a spinal needle at the right L3/4 posterior neuroforamen. Subsequent views show flow of contrast material flowing superiorly and inferiorly along the nerve root confirming epidural flow. Subsequently, a test dose of 1.5cc of 1% lidocaine solution was administered and patient was observed for two minutes for signs or symptoms of complications, including abdominal pain, shortness of breath, bilateral upper or lower extremity weakness, nausea and vomiting, prior to steroid injection. At this point, a total of 2cc or 10mg of dexamethasone and 6mg betamethasone was injected without incident. Attention was then refocused to the left L3/4 level where the identical procedure was replicated. The procedure tolerated the procedure well without signs or symptoms of complications prior to transfer to the recovery area continued monitoring without incident. The patient was then transferred to the recovery area where they were observed for an appropriate time after the injection. The patient reported a VAS score of 7 prior to the procedure and a post-procedure VAS of 0. POST OP INSTRUCTIONS The patient was provided a Pain Log to continue to record their response to the target-specific procedure prior to follow-up visit with their referring physician. Additionally, specific post-injection care instructions and a contact number to our office were provided if concerns arise regarding possible complications associated with the procedure are suspected.
== END 2024-02-14 09:40 | disposition home or self-care (01) ==
LOC: RAD 08:07
PROVIDERS: PCP Family Medicine; Referring Provider Physical Medicine & Rehabilitation; Visit Provider Physical Medicine & Rehabilitation
DX: M48.061 Spinal stenosis, lumbar region without neurogenic claudication (principal); M51.16 Intervertebral disc disorders with radiculopathy, lumbar region; M47.26 Other spondylosis with radiculopathy, lumbar region
CPT/HCPCS: 64483; 99152; 99153; J0702; J1100; J2250; J3490

== ENCOUNTER → 2024-05-07 07:36 | Outpatient (CLI) | payer MEDICARE, SELFPAY ==
[2022-05-06 14:48] VITALS: BMI 28.3
--- NOTE | 2024-05-07 | DI.ECHO.S_ITS ---
[facility] : : [id number] : [place] : : [id number] : : Phone: [phone] Echocardiogram Report + + :Name: EVELYN SMITH Study Date: 05/07/2024 Height: 69 in : :[facility] ReadingLocation: Weight: 185 lb : : Gender: Male BSA: 2.0 m2 : :: 1945 Age: 78 yrs BP: 134/84 mmHg: :Reason For Study: CARDIOMYOPATHY : :Ordering Physician: SOPHIA, : :CLYDE Performed By: Johnson Dunn : :Referring: CLYDE TOWNSEND : + + Interpretation Summary 1) Severely increased left ventricular thickness (concentric) with normal size and mildly reduced systolic function (EF 45-50%). 2) Normal right ventricular size with low normal function. 3) Severe left atrial enlargement present. 4) There is mild aortic stenosis. 5) Compared to the Echo done 04/25/2023, LVEF has improved slightly from 40-45% to 45-50% on this study. Procedure: A two-dimensional transthoracic echocardiogram with color flow and Doppler was performed. The study quality was technically adequate. Comparison is made with the echocardiogram of 04/25/2023. The heart rate ranged between 60-80 bpm during the study. Left Ventricle: The left ventricle is normal in size. Left ventricular wall thickness is severely increased. The ejection fraction is estimated to be 45- 50%. There is mild global hypokinesis of the left ventricle. Right Ventricle: The right ventricle is normal size. Right ventricular systolic function is at the lower limits of normal. Atria: The left atrium is severely dilated. The right atrium is mildly dilated. The interatrial septum grossly appears intact with no obvious evidence for an atrial septal defect. Mitral Valve: The mitral valve is normal. There is no mitral valve stenosis. There is trace mitral regurgitation. Aortic Valve: The aortic valve is trileaflet. There is mild aortic valve sclerosis. There is mild aortic stenosis. The peak aortic velocity is 1.69 m/sec. The aortic valve mean gradient is 6.3 mmHg. No aortic regurgitation is present. Tricuspid Valve: The tricuspid valve is normal. There is no tricuspid stenosis. There is trace tricuspid regurgitation. Pulmonic Valve: The pulmonic valve is not well visualized. There is no pulmonic valvular stenosis. There is no pulmonic valvular regurgitation. Great Vessels: The aortic root is normal size. The ascending aorta is mildly enlarged. The IVC is of normal diameter and collapses greater than 50% with a sniff. This suggests a low right atrial pressure of 3 mm Hg. Pericardium/ Pleura There is no pericardial effusion. There is no pleural effusion. MMode/2D Measurements & Calculations LVIDd: 4.7 cm LVOT diam: 2.1 cm LVIDs: 3.5 cm Ao root diam: 3.3 cm FS: 25.3 % asc Aorta Diam: 4.0 cm IVSd: 1.7 cm LVPWd: 1.8 cm LV jha. diameter/BSA (cm/m^2): 2.3 LV sys. diameter/BSA (cm/m^2): 1.7 LA A2 area: 35.6 cm2 RA long axis: 6.2 cm LA A4 area: 29.6 cm2 RA area: 27.8 cm2 LA length (vol): 7.1 cm RA vol: 106.2 ml LA vol: 126.4 ml RA : 53.1 ml/m2 LA vol index: 63.3 ml/m2 IVC diam: 2.2 cm RVD1 (basal): 3.9 cm RVD2 (mid): 3.3 cm TAPSE: 1.9 cm Doppler Measurements & Calculations Ao V2 max: 169.6 cm/sec LVOT Max Bjorn: 94.9 cm/sec Ao V2 mean: 118.0 cm/sec LV V1 max P.6 mmHg Ao max P.5 mmHg LV V1 VTI: 17.9 cm Ao mean P.3 mmHg ROSARIO(I,D): 2.0 cm2 Ao V2 VTI: 31.9 cm ROSARIO(V,D): 2.0 cm2 sev ratio: 0.56 ROSARIO indexed to BSA (cm^2/m^2): 1.0 MV E max bjorn: 77.7 cm/sec PA V2 max: 96.8 cm/sec MV A max bjorn: 27.4 cm/sec PA V2 mean: 64.6 cm/sec MV E/A: 2.8 PA mean P.9 mmHg Lat Peak E' Bjorn: 5.7 cm/sec PA pr(Accel): 37.9 mmHg E/E' lat: 13.5 MV dec time: 0.19 sec SV(LVOT): 64.8 ml Reading Physician:12:25 PM
[2024-05-07 09:46] LABS: Creatine Kinase 101 U/L (55-170)
[2024-05-07 09:59] LABS: NT-proBNP (BNP-Adult 18+) 2210 pg/mL (<450); Troponin I 0.061 ng/mL (0.01-0.034)
== END ==
PROVIDERS: PCP Family Medicine; Referring Provider Internal Medicine Cardiovascular Disease; Visit Provider Internal Medicine Cardiovascular Disease
DX: I35.0 Nonrheumatic aortic (valve) stenosis (principal); E85.4 Organ-limited amyloidosis; I35.8 Other nonrheumatic aortic valve disorders; I43 Cardiomyopathy in diseases classified elsewhere
CPT/HCPCS: 36415; 82550; 83880; 84484; 93306

== ENCOUNTER 2024-08-21 12:21 | Outpatient (CLI) | payer MEDICARE, SELFPAY ==
[2022-05-06 14:48] VITALS: BMI 28.3
[2024-08-21] VITALS (10 sets, daily range): BP systolic 125–161; BP diastolic 76–91; PULSE 54–60; RESP 12–18; TEMP 36.1; O2SAT 96–99
--- NOTE | 2024-08-21 13:00 | DI.RAD.S_ITS ---
PROCEDURE: PAIN L/S TRANSFORAM INJECT SARA COMPARISON: [facility], XA, PAIN L/S TRANSFORAM INJECT SARA, 02/14/2024, 9:13. INDICATIONS: Bilateral L3/4 TFESI FINDINGS: 4 intraoperative fluoroscopic images. Needle placement at right and left L3-L4. IMPRESSION: Intraoperative guidance provided. Dictated by: Daron Land M.D. on 08/21/2024 at 21:05 Approved by: Daron Land M.D. on 08/21/2024 at 21:06
[2024-08-21] MEDS: MIDAZOLAM 2 MG/2 ML VIAL IV (13:36)
[2024-08-21] MEDS: BUPIVACAINE 0.25% (PF) VIAL 2 ML INJ (13:41)
[2024-08-21] MEDS: iopamidoL 15 ML VIAL 3 ML INJ (13:41)
[2024-08-21] MEDS: DEXAMETHASONE 10 MG/ML VIAL 20 MG INJ (13:41)
[2024-08-21] MEDS: BETAMETHASONE 30 MG/5 ML MDV 12 MG INJ (13:42)
--- NOTE | 2024-08-21 13:58 | PM.PROC.IR.1 ---
Date/Time/Diagnoses Date of procedure: 08/21/24 Time of procedure: 13:59 Pre-procedure diagnosis: 1. FORAMINAL STENOSIS WITH LE SYMPTOMS Post-procedure diagnosis: same Procedure Notes Procedure: 1. FLUOROSCOPICALLY GUIDED CONTRAST CONTROLLED TRANSFORAMINAL EPIDURAL STEROID INJECTION - BILATERAL L3/4 TFESI Indications: Sherwin is referred by Dr. Wadsworth for treatment of Foraminal Stenosis with bilateral LE Symptoms Physician: Brain Hernandez Total Fluoroscopy time (seconds): 17 Total sedation minutes: 17 Complications: none Procedure in detail & Post-procedure care: FINDINGS Foraminal Nerve Root Compression secondary to disc disease and facet hypertrophy DESCRIPTION OF PROCEDURE Following review of allergy and review of potential side effects and complications, including, but not necessarily limited to, infection, allergic reaction, local tissue breakdown, stroke, temporary or permanent nerve injury, paralysis, and possible , the patient indicated that the patient understood and agreed to proceed. An informed consent document was signed by the patient, witnessed by a nurse, and placed in the patient's chart. Additionally, other treatment options including medications, modalities, and physical therapy were reviewed with the patient. After review of previous anaesthesic history and IV conscious sedation the patient was deemed safe to proceed with today?s procedure with IV conscious sedation as ASA class II designation. Safety time-out was performed to confirm patient ID, procedure to be performed and site of procedure. IV sedation was accomplished with a combination of 2mg of Versed was administered by the RN after DO order, titrated to patient comfort during the course of the procedure while the patient remained responsive to all verbal commands In the prone position following sterile prep and drape of the lumbar region, the right L3/4 posterior neuroforamen was identified fluoroscopically. The skin was anesthetized via a 25-gauge 1.5-inch needle with 1% lidocaine solution. At this point, a 25-gauge 3.5-inch spinal needle was atraumatically introduced and advanced under fluoroscopic guidance through the posterior right L3/4 neuroforamen to approximately the anterior aspect of the canal. Depth was confirmed on lateral view. Following negative aspiration, injection of approximately 1.5cc of Isovue 200 under live fluoroscopy in the AP view confirmed excellent flow along the nerve root, into the epidural space without vascular or intrathecal uptake observed Radiological data, including multiple fluoroscopic views of the lumbosacral spine, reveal a spinal needle at the right L3/4 posterior neuroforamen. Subsequent views show flow of contrast material flowing superiorly and inferiorly along the nerve root confirming epidural flow. Subsequently, a test dose of 1.5cc of 1% lidocaine solution was administered and patient was observed for two minutes for signs or symptoms of complications, including abdominal pain, shortness of breath, bilateral upper or lower extremity weakness, nausea and vomiting, prior to steroid injection. At this point, a total of 2cc or 10mg of dexamethasone and 6mg betamethasone was injected without incident. Attention was then refocused to the left L3/4 level where the identical procedure was replicated. The procedure tolerated the procedure well without signs or symptoms of complications prior to transfer to the recovery area continued monitoring without incident. The patient was then transferred to the recovery area where they were observed for an appropriate time after the injection. The patient reported a VAS score of 7 prior to the procedure and a post-procedure VAS of 0. POST OP INSTRUCTIONS The patient was provided a Pain Log to continue to record their response to the target-specific procedure prior to follow-up visit with their referring physician. Additionally, specific post-injection care instructions and a contact number to our office were provided if concerns arise regarding possible complications associated with the procedure are suspected.
== END 2024-08-21 14:22 | disposition home or self-care (01) ==
LOC: RAD 12:21
PROVIDERS: PCP Family Medicine; Referring Provider Physical Medicine & Rehabilitation; Visit Provider Physical Medicine & Rehabilitation
DX: M48.061 Spinal stenosis, lumbar region without neurogenic claudication (principal); M51.16 Intervertebral disc disorders with radiculopathy, lumbar region; M47.26 Other spondylosis with radiculopathy, lumbar region
CPT/HCPCS: 64483; 99152; J0702; J1100; J2250; J3490

== ENCOUNTER → 2024-10-29 07:53 | Outpatient (CLI) | payer MEDICARE, SELFPAY ==
[2022-05-06 14:48] VITALS: BMI 28.3
--- NOTE | 2024-10-29 07:54 | DI.RAD.S_ITS ---
PROCEDURE: XR LUMBAR SPINE MIN 4V INDICATIONS: BACK PAIN TECHNIQUE: 5 views of the lumbar spine were acquired, including bilateral oblique views. COMPARISON: MR, MR LUMBAR SPINE WO CON, 03/06/2020, 14:17. [facility], CR, XR LUMBAR SPINE MIN 4V, 05/07/2021, 8:26. FINDINGS: Bones: 5 nonrib-bearing vertebrae are present. Anterolisthesis of L5 on S1 measuring 0.7 cm, unchanged. Mild scoliosis. Minimal retrolisthesis most pronounced at L1-L2 and L2-L3. There is multilevel disc space height loss and endplate sclerosis. Small vertebral body osteophytes. No vertebral body compression fractures. No suspicious bony lesions. Soft tissues: Prominent stool in the colon. No suspicious soft tissue calcifications. Arterial vascular calcifications. Oblique images: Bilateral L5 pars defects. IMPRESSION: No significant interval change. Grade 1 anterolisthesis of L5 on S1. Minimal retrolisthesis most pronounced in the upper lumbar spine. Moderate degenerative changes. Moderate to severe DDD. Dictated by: Daron Land M.D. on 10/29/2024 at 9:01 Approved by: Daron Land M.D. on 10/29/2024 at 9:05
== END ==
PROVIDERS: PCP Family Medicine; Referring Provider Physical Medicine & Rehabilitation; Visit Provider Physical Medicine & Rehabilitation
DX: M51.27 Other intervertebral disc displacement, lumbosacral region (principal); M47.816 Spondylosis without myelopathy or radiculopathy, lumbar region; M51.369 Other intervertebral disc degeneration, lumbar region without mention of lumbar back pain or lower extremity pain; M48.00 Spinal stenosis, site unspecified; M43.17 Spondylolisthesis, lumbosacral region; M41.9 Scoliosis, unspecified
CPT/HCPCS: 72110

== ENCOUNTER 2024-11-08 14:44 | Outpatient (CLI) | payer MEDICARE, SELFPAY ==
[2024-11-06 10:26] VITALS: BMI 28.3
[2024-11-08] VITALS (10 sets, daily range): BP systolic 130–166; BP diastolic 75–93; PULSE 71–80; RESP 14–22; TEMP 36.7; O2SAT 94–98
--- NOTE | 2024-11-08 14:46 | DI.RAD.S_ITS ---
PROCEDURE: PAIN L/S TRANSFORAM INJECT SARA COMPARISON: [facility], XA, PAIN L/S TRANSFORAM INJECT SARA, 08/21/2024, 13:40. INDICATIONS: BILATERAL L4/5 TF TRAVIS FINDINGS: Fluoroscopic images were performed for spinal needle verification placement at L4-5, as labeled on the films. Appropriate location of the needle tips were confirmed by injection of contrast.. IMPRESSION: Needle and contrast localization at L4-5. Dictated by: Zahida Grimaldo M.D. on 11/08/2024 at 21:18 Approved by: Zahida Grimaldo M.D. on 11/08/2024 at 21:19
[2024-11-08] MEDS: MIDAZOLAM 2 MG/2 ML VIAL IV (15:57)
[2024-11-08] MEDS: BETAMETHASONE 30 MG/5 ML MDV 12 MG INJ (16:06)
[2024-11-08] MEDS: BUPIVACAINE 0.25% (PF) VIAL 2 ML INJ (16:06)
[2024-11-08] MEDS: DEXAMETHASONE 10 MG/ML VIAL 20 MG INJ (16:06)
[2024-11-08] MEDS: iopamidoL 15 ML VIAL 3 ML INJ (16:07)
--- NOTE | 2024-11-08 16:25 | PM.PROC.IR.1 ---
Date/Time/Diagnoses Date of procedure: 11/08/24 Time of procedure: 16:25 Pre-procedure diagnosis: 1. FORAMINAL STENOSIS WITH LE SYMPTOMS Post-procedure diagnosis: same Procedure Notes Procedure: 1. FLUOROSCOPICALLY GUIDED CONTRAST CONTROLLED TRANSFORAMINAL EPIDURAL STEROID INJECTION - BILATERAL L3/4 TFESI Indications: Sherwin is referred by Dr. Wadsworth for treatment of Foraminal Stenosis with bilateral LE Symptoms Physician: Brain Hernandez Total Fluoroscopy time (seconds): 16 Total sedation minutes: 23 Complications: none Procedure in detail & Post-procedure care: FINDINGS Foraminal Nerve Root Compression secondary to disc disease and facet hypertrophy DESCRIPTION OF PROCEDURE Following review of allergy and review of potential side effects and complications, including, but not necessarily limited to, infection, allergic reaction, local tissue breakdown, stroke, temporary or permanent nerve injury, paralysis, and possible , the patient indicated that the patient understood and agreed to proceed. An informed consent document was signed by the patient, witnessed by a nurse, and placed in the patient's chart. Additionally, other treatment options including medications, modalities, and physical therapy were reviewed with the patient. After review of previous anaesthesic history and IV conscious sedation the patient was deemed safe to proceed with today?s procedure with IV conscious sedation as ASA class II designation. Safety time-out was performed to confirm patient ID, procedure to be performed and site of procedure. IV sedation was accomplished with a combination of 2mg of Versed was administered by the RN after DO order, titrated to patient comfort during the course of the procedure while the patient remained responsive to all verbal commands In the prone position following sterile prep and drape of the lumbar region, the right L3/4 posterior neuroforamen was identified fluoroscopically. The skin was anesthetized via a 25-gauge 1.5-inch needle with 1% lidocaine solution. At this point, a 25-gauge 3.5-inch spinal needle was atraumatically introduced and advanced under fluoroscopic guidance through the posterior right L3/4 neuroforamen to approximately the anterior aspect of the canal. Depth was confirmed on lateral view. Following negative aspiration, injection of approximately 1.5cc of Isovue 200 under live fluoroscopy in the AP view confirmed excellent flow along the nerve root, into the epidural space without vascular or intrathecal uptake observed Radiological data, including multiple fluoroscopic views of the lumbosacral spine, reveal a spinal needle at the right L3/4 posterior neuroforamen. Subsequent views show flow of contrast material flowing superiorly and inferiorly along the nerve root confirming epidural flow. Subsequently, a test dose of 1.5cc of 1% lidocaine solution was administered and patient was observed for two minutes for signs or symptoms of complications, including abdominal pain, shortness of breath, bilateral upper or lower extremity weakness, nausea and vomiting, prior to steroid injection. At this point, a total of 2cc or 10mg of dexamethasone and 6mg betamethasone was injected without incident. Attention was then refocused to the left L3/4 level where the identical procedure was replicated. The procedure tolerated the procedure well without signs or symptoms of complications prior to transfer to the recovery area continued monitoring without incident. The patient was then transferred to the recovery area where they were observed for an appropriate time after the injection. The patient reported a VAS score of 7 prior to the procedure and a post-procedure VAS of 0. POST OP INSTRUCTIONS The patient was provided a Pain Log to continue to record their response to the target-specific procedure prior to follow-up visit with their referring physician. Additionally, specific post-injection care instructions and a contact number to our office were provided if concerns arise regarding possible complications associated with the procedure are suspected.
--- NOTE | 2024-11-08 16:26 | PM.PROC.IR.1 ---
Date/Time/Diagnoses Date of procedure: 11/08/24 Time of procedure: 16:26 Pre-procedure diagnosis: 1. FORAMINAL STENOSIS WITH LE SYMPTOMS Procedure Notes Procedure: 1. FLUOROSCOPICALLY GUIDED CONTRAST CONTROLLED TRANSFORAMINAL EPIDURAL STEROID INJECTION - BILATERAL L4/5 TFESI Indications: Sherwin is referred by Dr. Wadsworth for treatment of Foraminal Stenosis with bilateral LE Symptoms Physician: Brain Hernandez Total Fluoroscopy time (seconds): 16 Total sedation minutes: 23 Complications: none Procedure in detail & Post-procedure care: FINDINGS Foraminal Nerve Root Compression secondary to disc disease and facet hypertrophy DESCRIPTION OF PROCEDURE Following review of allergy and review of potential side effects and complications, including, but not necessarily limited to, infection, allergic reaction, local tissue breakdown, stroke, temporary or permanent nerve injury, paralysis, and possible , the patient indicated that the patient understood and agreed to proceed. An informed consent document was signed by the patient, witnessed by a nurse, and placed in the patient's chart. Additionally, other treatment options including medications, modalities, and physical therapy were reviewed with the patient. After review of previous anaesthesic history and IV conscious sedation the patient was deemed safe to proceed with today?s procedure with IV conscious sedation as ASA class II designation. Safety time-out was performed to confirm patient ID, procedure to be performed and site of procedure. IV sedation was accomplished with a combination of 2mg of Versed was administered by the RN after DO order, titrated to patient comfort during the course of the procedure while the patient remained responsive to all verbal commands In the prone position following sterile prep and drape of the lumbar region, the right L4/5 posterior neuroforamen was identified fluoroscopically. The skin was anesthetized via a 25-gauge 1.5-inch needle with 1% lidocaine solution. At this point, a 25-gauge 3.5-inch spinal needle was atraumatically introduced and advanced under fluoroscopic guidance through the posterior right L4/5 neuroforamen to approximately the anterior aspect of the canal. Depth was confirmed on lateral view. Following negative aspiration, injection of approximately 1.5cc of Isovue 200 under live fluoroscopy in the AP view confirmed excellent flow along the nerve root, into the epidural space without vascular or intrathecal uptake observed Radiological data, including multiple fluoroscopic views of the lumbosacral spine, reveal a spinal needle at the right L4/5 posterior neuroforamen. Subsequent views show flow of contrast material flowing superiorly and inferiorly along the nerve root confirming epidural flow. Subsequently, a test dose of 1.5cc of 1% lidocaine solution was administered and patient was observed for two minutes for signs or symptoms of complications, including abdominal pain, shortness of breath, bilateral upper or lower extremity weakness, nausea and vomiting, prior to steroid injection. At this point, a total of 2cc or 10mg of dexamethasone and 6mg betamethasone was injected without incident. Attention was then refocused to the left L4/5 level where the identical procedure was replicated. The procedure tolerated the procedure well without signs or symptoms of complications prior to transfer to the recovery area continued monitoring without incident. The patient was then transferred to the recovery area where they were observed for an appropriate time after the injection. The patient reported a VAS score of 7 prior to the procedure and a post-procedure VAS of 0. POST OP INSTRUCTIONS The patient was provided a Pain Log to continue to record their response to the target-specific procedure prior to follow-up visit with their referring physician. Additionally, specific post-injection care instructions and a contact number to our office were provided if concerns arise regarding possible complications associated with the procedure are suspected.
--- NOTE | 2024-11-08 17:28 | PC.NURSE ---
Patient now back to baseline and ambulating without assistance. Assist out to ride via wheelchair.
== END 2024-11-08 16:35 | disposition home or self-care (01) ==
LOC: RAD 14:45
PROVIDERS: PCP Family Medicine; Referring Provider Physical Medicine & Rehabilitation; Visit Provider Physical Medicine & Rehabilitation
DX: M48.061 Spinal stenosis, lumbar region without neurogenic claudication (principal); M51.16 Intervertebral disc disorders with radiculopathy, lumbar region; M47.26 Other spondylosis with radiculopathy, lumbar region
CPT/HCPCS: 64483; 99152; 99153; J0702; J1100; J2250; J3490

== ENCOUNTER → 2024-11-13 13:57 | Outpatient (CLI) | payer MEDICARE, SELFPAY ==
[2024-11-13 11:08] VITALS: BMI 28.3
--- NOTE | 2024-11-13 13:58 | DI.RAD.S_ITS ---
PROCEDURE: XR CHEST 2V INDICATIONS: cough TECHNIQUE: 2 views of the chest were acquired. COMPARISON: [facility], , CHEST 2 VIEW, 04/06/2017, 11:16. FINDINGS: Surgical changes and devices: None. Lungs and pleura: Patchy consolidation in the right upper lobe. Mediastinum: Mediastinal contours are normal. Heart size is normal. Bones and chest wall: No suspicious bony abnormalities. Soft tissues appear unremarkable. IMPRESSION: Patchy consolidation of the right upper lobe, concerning for bacterial pneumonia. Recommend follow-up in 1-2 months with chest x-ray to ensure resolution. Dictated by: Rupesh Bull M.D. on 11/13/2024 at 15:59 Approved by: Rupesh Bull M.D. on 11/13/2024 at 16:00
== END ==
PROVIDERS: PCP Family Medicine; Referring Provider Family Medicine; Visit Provider Family Medicine
DX: R05.9 Cough, unspecified (principal)
CPT/HCPCS: 71046

== ENCOUNTER 2025-02-14 10:33 | Outpatient (CLI) | payer MEDICARE, SELFPAY ==
[2024-11-13 11:08] VITALS: BMI 28.3
[2025-02-14] VITALS (13 sets, daily range): BP systolic 116–157; BP diastolic 61–118; PULSE 54–64; RESP 14–16; TEMP 36.2; O2SAT 94–100
[2025-02-14] MEDS: MIDAZOLAM 2 MG/2 ML VIAL IV (11:38)
[2025-02-14] MEDS: BUPIVACAINE 0.5% (PF) 10 ML VIAL 5 ML INJ (11:42)
[2025-02-14] MEDS: LIDOCAINE 1% 20 ML 5 ML INJ (11:42)
--- NOTE | 2025-02-14 12:24 | P.PCN_ITS ---
Date/Time/Diagnoses Date of procedure: 02/14/25 Time of procedure: 12:24 Pre-procedure diagnosis: 1. RECALCITRANT FACET ARTHROPATHY Post-procedure diagnosis: same Procedure Notes Procedure: 1. BILATERAL L4 AND L5 MEDIAL BRANCH RADIOFREQUENCY NEUROTOMY AND S1 DORSAL RAMUS BRANCH RADIOFREQUENCY NEUROTOMY Indications: Sherwin is referred by Dr. Wadsworth for treatment of facet arthropathy. Physician: Brain Hernandez Total Fluoroscopy time (seconds): 17 Total sedation minutes: 37 Complications: none Procedure in detail & Post-procedure care: DESCRIPTION OF PROCEDURE Bilateral L4 and L5 medial branch radiofrequency neurotomy and bilateral S1 dorsal ramus radiofrequency neurotomy under fluoroscopy with conscious sedation. The patient is well known to this clinic having undergone previous facet injections with good but temporary relief. The patient has experienced appropriate, concordant relief with previous facet and median branch blocks but the patient's pain has been recalcitrant to further conservative measures. Therefore, based upon the patient's relief and persistent symptoms, the patient is considered an appropriate candidate for facet rhizotomy. All of the patient's questions regarding the risks versus benefits of the procedure, including, but not limited to, bleeding, infection, temporary as well as lasting nerve injury, paralysis, stroke, and , as well treatment alternatives were answered to satisfaction. After obtaining informed consent, denial of pertinent drug allergies, as well as being made aware of the potential risks of bleeding, infection, spinal cord trauma, paralysis, temporary and permanent nerve damage, seizure, stroke, and possible , the patient was brought to the fluoroscopy suite and positioned prone on the fluoroscopy table. The lumbar region was prepped in usual sterile fashion and covered with a fenestrated drape in the usual sterile fashion. Appropriate monitors applied including pulse oximeter, pulse, and blood pressure for regular monitoring throughout the procedure. After review of previous anaesthesic history and IV conscious sedation the patient was deemed safe to proceed with today's procedure with IV conscious sedation as ASA class II designation. Safety time-out was performed to confirm patient ID, procedure to be performed and site of procedure. IV sedation was accomplished with a combination of 2mg of Versed administered by the RN after DO order, titrated to patient comfort during the course of the procedure while the patient remained responsive to all verbal commands. After local infiltration using 1% lidocaine, under fluoroscopic guidance, a 10- cm RF insulated needle with a 10-mm active tip was positioned parallel to the junction of the right sacral ala and the superior articulating process where the S1 dorsal ramus resides. Needle placement was confirmed with motor stimulation of .5v on the right which produced local stimulation without radicular component. The stimulation was then increased to 2v with, once again, only local multifidus stimulation without radicular component. The needle was then removed and the identical procedure was performed along the length of the right L5 medial branch with motor stimulation at .7v on the right. The identical procedure was once again performed along the length of the right L4 medial branch with motor stimulation of .5v on the right. The medial branches were then anesthetised with 0.5% Marcaine. This was then followed by two discreet lesions performed at 80 degrees Celsius for 90 seconds each. The identical procedure was repeated on the left. The patient tolerated the procedure well without signs or symptoms of complications prior to transfer to the recovery area continued monitoring without incident. The patient was then transferred to the recovery area where they were observed for an appropriate period of time after the injection. The patient reported a VAS score of 9 prior to the procedure and a post-procedure VAS of 0. POST OP INSTRUCTIONS The patient was provided a Pain Log to continue to record the patient's response to the target-specific procedure prior to the patient's follow-up visit with the referring physician. Additionally, specific post-injection care instructions and a contact number to our office were provided if concerns arise regarding possible complications associated with the procedure are suspected.
== END 2025-02-14 12:40 | disposition home or self-care (01) ==
LOC: RAD 10:34
PROVIDERS: PCP Family Medicine; Referring Provider Physical Medicine & Rehabilitation; Visit Provider Physical Medicine & Rehabilitation
DX: M47.816 Spondylosis without myelopathy or radiculopathy, lumbar region (principal); M47.817 Spondylosis without myelopathy or radiculopathy, lumbosacral region
CPT/HCPCS: 64635; 64636; 99152; 99153; J2250

== ENCOUNTER 2025-02-18 07:19 | Emergency (ER) | payer MEDICARE, SELFPAY ==
[2024-11-13 11:08] VITALS: BMI 28.3
[2025-02-18] VITALS (11 sets, daily range): BP systolic 115–143; BP diastolic 57–86; PULSE 63–77; RESP 18; TEMP 36.4; O2SAT 92–98; BMI 27.7
--- NOTE | 2025-02-18 07:34 | ED.BACK ---
HPI - Back Pain/Injury General Chief Complaint: Back Pain/Injury Stated Complaint: Back pain after back injection Time Seen by Provider: 02/18/25 07:31 History of Present Illness HPI Narrative: Patient is an 79-year-old history of aortic stenosis, chronic back pain undergone previous facet injections last 1 was 02/14/2025. He reports that this when he was having much more pain unable to walk. Just due to pain. Has consistent numbness which is not new. No change in bowel or bladder habits. No fever. No other symptoms. 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 Related Data Home Medications Medication Instructions Recorded Confirmed tafamidis 61 mg capsule (Vyndamax) 61 mg PO DAILY 06/23/22 02/04/25 Previous Rx's Medication Instructions Recorded Disabled Parking Permit #1 ea 03/28/23 omeprazole 20 mg capsule,delayed 20 mg PO DAILY #90 caps 12/11/24 release celecoxib 200 mg capsule 200 mg PO QAM #90 caps 02/04/25 duloxetine 20 mg capsule,delayed 20 mg PO .QHS #30 caps 02/04/25 release tramadol 50 mg tablet 50 mg PO BID PRN pain #42 tabs 02/04/25 pravastatin 40 mg tablet 40 mg PO ONCE PM #90 tabs 02/12/25 gabapentin 300 mg capsule 300 mg PO BEDTIME #30 caps 02/18/25 hydrocodone 5 mg-acetaminophen 325 1 tab PO Q6H PRN pain #14 tabs 02/18/25 mg tablet Allergies Allergy/AdvReac Type Severity Reaction Status Date / Time pantoprazole AdvReac Mild Diarrhea Verified 02/04/25 08:10 Patient History Medical History Facet arthropathy, lumbar Herniated nucleus pulposus, L5-S1 Juvenile rheumatic fever Low back pain Lumbar post-laminectomy syndrome Multilevel spinal stenosis Sensorineural hearing loss Unilateral primary osteoarthritis, left knee Surgical History Anesthesia History of carpal tunnel repair (07/2014) History of colonoscopy (2006) History of gastrointestinal surgery (2006) History of lumbar laminectomy History of nasal surgery History of rectal surgery (03/2013) Previous back surgery (~2019) Status post hernia repair Status post knee surgery Status post knee surgery Status post lumbar laminectomy Family History Father Dementia Mother No problems noted. Social History household members: spouse alcohol intake: current alcohol intake frequency: a few times a week Exam Initial Vital Signs Initial Vital Signs: Vital Signs Temperature 97.6 F 02/18/25 07:25 Pulse Rate 63 02/18/25 07:25 Respiratory Rate 18 02/18/25 07:25 Blood Pressure 143/86 H 02/18/25 07:25 Pulse Oximetry 98 02/18/25 07:25 Oxygen Delivery Method Room Air 02/18/25 07:25 GENERAL: Alert pleasant 79-year-old male appears uncomfortable and in no acute distress. HEENT: Head atraumatic,EOMI, pupils reactive, face symmetric, moist mucous membranes CARDIOVASCULAR: Regular rate and rhythm without murmurs, rubs or gallops. RESPIRATORY: Breath sounds equal bilaterally, no wheezes rales or rhonchi. ABDOMEN: Soft, nontender. Normoactive bowel sounds all 4 quadrants. No guarding or rebound. BACK: Injection sites noted no erythema no significant vertebral pain or step-off EXTREMITIES: Normal range of motion, no clubbing or edema. Neurovascularly intact Significant back pain when moving last night NEUROLOGICAL: Alert and oriented x4.Normal gait and speech. Cranial nerves II through XII grossly intact. Sensation in lower extremities intact SKIN: Warm, dry, no laceration, no petechiae, no rashes or lesions. Course Orders Ordered: ED Orders 02/18/25 08:00 CBC Auto Diff [Complete Blood Count AUTO DIFF] Stat CMP [Comprehensive Metabolic Panel] Stat CRP [C-Reactive Protein Quant] Stat ESR [Erythrocyte Sedimentation Rate] Stat 02/18/25 09:08 MR lumbar spine wo con Stat Discontinued Medications Hydromorphone HCl (Hydromorphone 1 Mg Inj) 0.5 mg IV NOW ONE Stop: 02/18/25 07:47 Last Admin: 02/18/25 08:07 Dose: 0.5 mg Documented By: SPF Hydromorphone HCl (Hydromorphone 0.5 Mg Inj) 0.5 mg IV NOW ONE Stop: 02/18/25 10:41 Last Admin: 02/18/25 10:46 Dose: 0.5 mg Documented By: BERNA Ketorolac Tromethamine (Ketorolac 30 Mg/Ml Vial) 15 mg IV NOW ONE Stop: 02/18/25 10:41 Last Admin: 02/18/25 10:46 Dose: 15 mg Documented By: BERNA Vital Signs Vital signs: Vital Signs - 8 hr 02/18/25 07:25 02/18/25 07:39 02/18/25 08:00 Temperature 97.6 F Pulse Rate 63 72 Respiratory Rate 18 Blood Pressure 143/86 H 121/67 Pulse Oximetry 98 94 Oxygen Delivery Method Room Air 02/18/25 08:00 02/18/25 08:30 02/18/25 08:30 Temperature Pulse Rate 63 67 Respiratory Rate Blood Pressure 115/68 Pulse Oximetry 96 92 Oxygen Delivery Method Room Air 02/18/25 09:33 02/18/25 09:34 02/18/25 09:34 Temperature Pulse Rate 77 73 Respiratory Rate Blood Pressure 137/77 Pulse Oximetry 97 96 Oxygen Delivery Method 02/18/25 10:00 02/18/25 10:01 02/18/25 10:01 Temperature Pulse Rate 67 69 Respiratory Rate Blood Pressure 120/57 L Pulse Oximetry 94 95 Oxygen Delivery Method 02/18/25 10:30 02/18/25 10:30 02/18/25 11:00 Temperature Pulse Rate 65 67 Respiratory Rate Blood Pressure 118/71 Pulse Oximetry 93 94 Oxygen Delivery Method 02/18/25 11:01 02/18/25 11:01 Temperature Pulse Rate 68 Respiratory Rate Blood Pressure 131/81 Pulse Oximetry 93 Oxygen Delivery Method MDM - Back Pain/Injury Lab Data 02/18/25 08:00 02/18/25 08:00 Labs: Lab Results 02/18/25 Range/Units 08:00 WBC 9.0 (4.5-11.0) X10^3/uL RBC 4.68 (4.5-5.9) X10^6/uL Hgb 15.1 (13.5-17.5) g/dL Hct 44.8 (41-53) % MCV 95.9 (80-100) fL MCH 32.3 (26-34) PG MCHC 33.7 (30-36) % RDW 14.0 (11.6-14.8) % Plt Count 187 (150-400) X10^3/uL Neut % (Auto) 71.9 (50-75) % Lymph % (Auto) 13.3 L (25-40) % Mathews % (Auto) 10.9 (3-14) % Eos % (Auto) 3.3 (2-4) % Baso % (Auto) 0.6 (0-2) % Neut # (Auto) 6500 (8750-8342) /uL Lymph # (Auto) 1200 (2968-8146) /uL Mathews # (Auto) 1000 H (0-900) /uL Eos # (Auto) 300 (0-450) /uL Baso # (Auto) 100 (0-100) /uL ESR 9 (0-15) MM/HR Sodium 132 L (137-145) mmol/L Potassium 5.0 (3.4-5.1) mmol/L Chloride 103 (98-107) mmol/L Carbon Dioxide 22 (22-32) mmol/L BUN 21 H (9-20) mg/dL Creatinine 1.08 (0.66-1.25) mg/dL Estimated GFR > 60 (>60) mL/min BUN/Creatinine Ratio 19.4 (6-22) Glucose 125 H (70-99) mg/dL Calcium 8.8 (8.4-10.2) mg/dL Total Bilirubin 1.3 (0.2-1.3) mg/dL AST 56 (17-59) IU/L ALT 32 (<50) IU/L Alkaline Phosphatase 124 (38-126) U/L C-Reactive Protein 11.8 H (<1.0) mg/dL Total Protein 6.9 (6.3-8.2) g/dL Albumin 3.9 (3.5-5.0) g/dL Globulin 3.0 (1.7-4.1) g/dL Albumin/Globulin Ratio 1.3 (1.0-2.8) Imaging Data MR lumbar: Radiologist's Impression: PROCEDURE: MR LUMBAR SPINE WO CON INDICATIONS: severe pain after injection TECHNIQUE: Noncontrast sagittal T1 spin echo and T2 fast echo, sagittal STIR, and T2 fast spin echo through the lumbar spine. In cases with scoliosis, additional coronal T2 fast spin echo may be performed. COMPARISON: [facility], XA, PAIN L/S MED/LAT N RFA BILAT, 02/14/2025, 11:40. [facility], MR, MR LUMBAR SPINE WO CON, 12/12/2021, 13:59. FINDINGS: Image quality: Excellent. Alignment and Curvature: M bilateral pars defects with anterolisthesis of L5 on S1 measuring approximately 6 mm. Trace retrolisthesis of L1 on L2, and L2 on L3, and L3 on L4. Bone Marrow: Marrow is of normal overall signal. No acute vertebral body compression fractures. Spinal Cord: Conus medullaris terminates at the L1 level. Visualized cord demonstrates normal signal and size. Paraspinous Soft Tissues: No paravertebral masses. T12-L1: Normal appearance. L1-L2: Disc osteophyte complex. Facet hypertrophy. No significant canal stenosis or foraminal stenosis. L2-L3: Trace retrolisthesis. Canal stenosis remains moderate. Moderate bilateral foraminal stenosis. L3-L4: Interval improvement. Previous severe canal stenosis was in part secondary to facet joint cyst. The facet joint cysts have decreased in size. There is moderate canal stenosis. L4-L5: Suspect right hemilaminectomy. Resolution of previous facet joint cysts off of the right facet which had contributed to moderate canal stenosis. There is no canal stenosis currently. Worsening of bilateral foraminal narrowing, severe on the right and moderate to severe on the left with bilateral foraminal L4 nerve root impingement. L5-S1: Bilateral L5 pars defects with 6 mm of anterolisthesis of L5 on S1. This is slightly increased. There is definite interval worsening bilateral foraminal narrowing, severe on the right and marked on the left with significant bilateral L5 foraminal nerve root impingement. IMPRESSION: 1. No significant complication noted from recent RFA procedure. No evidence of osteomyelitis/discitis. 2. Interval improvement in canal stenosis at L3-L4 and L4-L5. 3. Interval worsening of bilateral foraminal narrowing at L4-L5. 4. Interval worsening of bilateral foraminal nerve root impingement at L5-S1. There are bilateral L5 pars defects. There is interval increase in anterolisthesis and worsening of foraminal narrowing with bilateral foraminal nerve root impingement. Dictated by: Javier Awad M.D. on 02/18/2025 at 10:02 [facility] Narrative Medical decision making narrative: Patient is a 79-year-old male chronic back pain presenting to worsening back pain. He has had facet injections the most recent being on 02/14/2025 and having increasing pain since then. He does have significant left leg tingling. No loss of bowel or urine no significant weakness. Initial concern for complication from injection. Blood Work has been reviewed CBC shows no leukocytosis WBC 9.0 no anemia CMP significant electrolyte abnormality sodium is 132 creatinine 1.0 potassium slightly elevated ESR 9, CRP 11.8 MRI lumbar without contrast does not show any evidence epidural abscess or hematoma. No complication from procedure. It does show worsening foraminal stenosis of L4-L5 with improvement of central canal stenosis L3-L4 and L4-L5. Patient has received 2 doses of Dilaudid and Toradol he actually he was ambulatory in the ED has improvement in pain. I have reviewed what he takes for pain control currently looks like Celebrex and tramadol. I will stop tramadol at this time and start him on Gunlock along with adding gabapentin. He reports he has previously taken gabapentin. Recommend outpatient follow-up for further pain management. All questions have been addressed Discharge Plan Departure Patient Disposition: Home Clinical Impression: Acute exacerbation of chronic low back pain Instructions: DI for Low Back Pain Activity Restrictions/Additional Instructions: *You have been diagnosed with acute on chronic back pain *What to do: At this time your MRI does show some worsening of your back. No complications from procedure. *Continue to take medications as directed Stop taking t tramadol Start taking Gunlock 1 tablet every 4-6hours if needed for severe pain Gabapentin 300 mg at night *Follow up with your primary care provider in 2-3 days or call [phone] *Return to ER if you should have increasing leg pain weakness loss of urine or any new, worsening or concerning symptoms CONTROLLED SUBSTANCE DISCHARGE (Narcotoic/benzodiazepine/Flexeril/Phenergan) 1. You have been prescribed narcotic medications, it does have acetaminophen/Tylenol/paracetamol in it, DO NOT TAKE MORE THAN 4,00mg in 24 hours of Tylenol. TRAMADOL DOES NOT CONTAIN TYLENOL 2. Please understand that we cannot provide further refills of narcotics, benzodiazepines or controlled substances through the ED and her pain management will need to be through your provider. 3. While on these medications you cannot drive or operate heavy machinery. 4. You cannot sign legal documents or perform any duties such as this. 5. As long as you're taking opiate pain medications he should also be taking a stool softener such as Colace, Dulcolax, MiraLAX or prune juice, to help avoid constipation. Prescriptions: New hydrocodone-acetaminophen 5-325 mg tablet 1 tab PO Q6H PRN (Reason: pain) Qty: 14 0RF gabapentin 300 mg capsule 300 mg PO BEDTIME Qty: 30 0RF No Action omeprazole 20 mg capsule,delayed release(DR/EC) 20 mg PO DAILY Qty: 90 3RF (DME) Disabled Parking Permit See Rx Instructions .ROUTE .MEDSUPPLY Qty: 1 0RF Rx Instructions: Patient qualifies for disabled parking as per the attached form. celecoxib 200 mg capsule 200 mg PO QAM Qty: 90 1RF pravastatin 40 mg tablet 40 mg PO ONCE PM Qty: 90 3RF tramadol 50 mg tablet 50 mg PO BID PRN (Reason: pain) Qty: 42 1RF duloxetine 20 mg capsule,delayed release(DR/EC) 20 mg PO .QHS Qty: 30 2RF Vyndamax 61 mg capsule 61 mg PO DAILY Referrals: Johnson Wadsworth MD [Primary Care Provider] - Stand Alone Forms: Patient Portal/API/Survey
[2025-02-18] MEDS: HYDROMORPHONE 1 MG INJ 0.5 MG IV (08:07)
[2025-02-18 08:08] LABS: Add Manual Diff / Slide Review NO; Basophils Absolute Auto 100 /uL (0-100); Basophils Percent Auto 0.6 % (0-2); Eosinophils Absolute Auto 300 /uL (0-450); Eosinophils Percent Auto 3.3 % (2-4); Hematocrit 44.8 % (41-53); Hemoglobin 15.1 g/dL (13.5-17.5); Lymphocytes Absolute Auto 1200 /uL (1100-4500); Lymphocytes Percent Auto 13.3 % (25-40); Mean Corpuscular HGB Conc 33.7 % (30-36); Mean Corpuscular Hemoglobin 32.3 PG (26-34); Mean Corpuscular Volume 95.9 fL (80-100); Monocytes Absolute Auto 1000 /uL (0-900); Monocytes Percent Auto 10.9 % (3-14); Neutrophils Absolute Auto 6500 /uL (1500-7000); Neutrophils Percent Auto 71.9 % (50-75); Platelet Count 187 X10^3/uL (150-400); Red Blood Cell Count 4.68 X10^6/uL (4.5-5.9)
[2025-02-18 08:23] LABS: Alanine Aminotransferase 32 IU/L (<50); Albumin 3.9 g/dL (3.5-5.0); Albumin Globulin Ratio 1.3 (1.0-2.8); Alkaline Phosphatase 124 U/L (38-126); Aspartate Aminotransferase 56 IU/L (17-59); BUN Creatinine Ratio 19.4 (6-22); Bilirubin Total 1.3 mg/dL (0.2-1.3); Blood Urea Nitrogen 21 mg/dL (9-20); Calcium 8.8 mg/dL (8.4-10.2); Carbon Dioxide 22 mmol/L (22-32); Chloride 103 mmol/L (98-107); Estimated Glomerular Filt Rate > 60 mL/min (>60); Glucose 125 mg/dL (70-99); Sodium 132 mmol/L (137-145); Total Protein 6.9 g/dL (6.3-8.2)
[2025-02-18 08:36] LABS: C-Reactive Protein Quant 11.8 mg/dL (<1.0); HEMOLYSIS 89 (0-50)
[2025-02-18 08:43] LABS: Erythrocyte Sedimentation Rate 9 MM/HR (0-15)
--- NOTE | 2025-02-18 09:08 | DI.MRI.S_ITS ---
PROCEDURE: MR LUMBAR SPINE WO CON INDICATIONS: severe pain after injection TECHNIQUE: Noncontrast sagittal T1 spin echo and T2 fast echo, sagittal STIR, and T2 fast spin echo through the lumbar spine. In cases with scoliosis, additional coronal T2 fast spin echo may be performed. COMPARISON: [facility], XA, PAIN L/S MED/LAT N RFA BILAT, 02/14/2025, 11:40. [facility], MR, MR LUMBAR SPINE WO CON, 12/12/2021, 13:59. FINDINGS: Image quality: Excellent. Alignment and Curvature: M bilateral pars defects with anterolisthesis of L5 on S1 measuring approximately 6 mm. Trace retrolisthesis of L1 on L2, and L2 on L3, and L3 on L4. Bone Marrow: Marrow is of normal overall signal. No acute vertebral body compression fractures. Spinal Cord: Conus medullaris terminates at the L1 level. Visualized cord demonstrates normal signal and size. Paraspinous Soft Tissues: No paravertebral masses. T12-L1: Normal appearance. L1-L2: Disc osteophyte complex. Facet hypertrophy. No significant canal stenosis or foraminal stenosis. L2-L3: Trace retrolisthesis. Canal stenosis remains moderate. Moderate bilateral foraminal stenosis. L3-L4: Interval improvement. Previous severe canal stenosis was in part secondary to facet joint cyst. The facet joint cysts have decreased in size. There is moderate canal stenosis. L4-L5: Suspect right hemilaminectomy. Resolution of previous facet joint cysts off of the right facet which had contributed to moderate canal stenosis. There is no canal stenosis currently. Worsening of bilateral foraminal narrowing, severe on the right and moderate to severe on the left with bilateral foraminal L4 nerve root impingement. L5-S1: Bilateral L5 pars defects with 6 mm of anterolisthesis of L5 on S1. This is slightly increased. There is definite interval worsening bilateral foraminal narrowing, severe on the right and marked on the left with significant bilateral L5 foraminal nerve root impingement. IMPRESSION: 1. No significant complication noted from recent RFA procedure. No evidence of osteomyelitis/discitis. 2. Interval improvement in canal stenosis at L3-L4 and L4-L5. 3. Interval worsening of bilateral foraminal narrowing at L4-L5. 4. Interval worsening of bilateral foraminal nerve root impingement at L5-S1. There are bilateral L5 pars defects. There is interval increase in anterolisthesis and worsening of foraminal narrowing with bilateral foraminal nerve root impingement. Dictated by: Javier Awad M.D. on 02/18/2025 at 10:02 Approved by: Javier Awad M.D. on 02/18/2025 at 10:31
[2025-02-18] MEDS: KETOROLAC 30 MG/ML VIAL 15 MG IV (10:46)
[2025-02-18] MEDS: HYDROMORPHONE 0.5 MG INJ IV (10:46)
== END 2025-02-18 11:15 | disposition home or self-care (01) ==
PROVIDERS: Emergency Provider Emergency Medicine; PCP Family Medicine
DX: M54.50 Low back pain, unspecified (principal)
CPT/HCPCS: 36415; 72148; 80053; 85025; 85651; 86140; 96374; 96375; 96376; 99284; J1171; J1885

== ENCOUNTER → 2025-04-19 13:43 | Outpatient (CLI) | payer MEDICARE, SELFPAY ==
[2025-04-05 08:12] VITALS: BMI 28.3
--- NOTE | 2025-04-19 13:45 | DI.ECHO.S_ITS ---
[facility] : : [id number] : [place] : : [id number] : : Phone: [phone] Echocardiogram Report + + :Name: EVELYN SMITH Study Date: 04/19/2025 Height: 69 in : :[facility] ReadingLocation: Weight: 185 lb : : Gender: Male BSA: 2.0 m2 : :: 1945 Age: 79 yrs BP: 142/92 mmHg: :Reason For Study: CARDIOMYOPATHY : :Ordering Physician: SOPHIA, : :CLYDE Performed By: Johnson Dunn : :Referring: CLYDE TOWNSEND : + + Interpretation Summary 1) Severely increased left ventricular thickness (concentric) with normal size and mildly reduced systolic function (EF 45-50%). 2) Normal right ventricular size with low normal function. 3) Severe left atrial enlargement present. 4) There is mild aortic stenosis (mean gradient 8mmHg, valve area 1.9cm2). 5) The right ventricular systolic pressure is estimated to be at least 44 mmHg based on an estimated right atrial pressure of 8 mm Hg. 6) Compared to the Echo done 05/07/2024, no significant change. Procedure: A two-dimensional transthoracic echocardiogram with color flow and Doppler was performed. The study quality was technically good. Comparison is made with the echocardiogram of 05/07/2024. The patient was in normal sinus rhythm during the exam. Left Ventricle: The left ventricle is normal in size. Left ventricular wall thickness is severely increased. There is no ventricular septal defect visualized. The ejection fraction is estimated to be 45-50%. There is mild global hypokinesis of the left ventricle. Diastolic parameters suggest probable normal left ventricular diastolic function and normal filling pressures. Right Ventricle: The right ventricle is normal size. Right ventricular systolic function is at the lower limits of normal. Atria: The left atrium is severely dilated. The right atrium is moderately dilated. There is no Doppler evidence for an interatrial shunt. Mitral Valve: There is mild mitral annular calcification. The mitral valve leaflets appear mildly thickened. There is mild mitral regurgitation. Aortic Valve: The aortic valve is trileaflet. There is mild aortic valve sclerosis. The peak aortic velocity is 1.89 m/sec. The aortic valve mean gradient is 7.6 mmHg. No aortic regurgitation is present. Tricuspid Valve: The tricuspid valve leaflets are thin and pliable. There is mild tricuspid regurgitation. The right ventricular systolic pressure is estimated to be at least 44 mmHg based on an estimated right atrial pressure of 8 mm Hg. Pulmonic Valve: The pulmonic valve leaflets are thin and pliable; valve motion is normal. There is no pulmonic valvular regurgitation. Great Vessels: The aortic root is mildly dilated. The ascending aorta is mildly enlarged. The pulmonary artery is normal size. The IVC is dilated (diameter is greater than 2.1 cm) yet it collapses greater than 50% with a sniff. This suggests a right atrial pressure of 8 mm Hg. Pericardium/ Pleura There is no pericardial effusion. There is no pleural effusion. MMode/2D Measurements & Calculations LVIDd: 4.9 cm LVOT diam: 2.3 cm LVIDs: 3.8 cm Ao root diam: 3.5 cm FS: 23.2 % Aortic Jxn: 2.4 cm EPSS: 0.42 cm asc Aorta Diam: 3.8 cm IVSd: 1.9 cm LVPWd: 1.7 cm LV jha. diameter/BSA (cm/m^2): 2.5 LV sys. diameter/BSA (cm/m^2): 1.9 LA A2 area: 32.5 cm2 RA long axis: 6.2 cm LA A4 area: 31.9 cm2 RA area: 26.6 cm2 LA length (vol): 7.0 cm RA vol: 97.2 ml LA vol: 125.2 ml RA : 48.6 ml/m2 LA vol index: 62.6 ml/m2 IVC diam: 2.3 cm RVD1 (basal): 3.6 cm RVD2 (mid): 2.7 cm TAPSE: 1.8 cm Doppler Measurements & Calculations Ao V2 max: 189.9 cm/sec LVOT Max Bjorn: 87.9 cm/sec Ao V2 mean: 129.6 cm/sec LV V1 max P.1 mmHg Ao max P.4 mmHg LV V1 VTI: 17.4 cm Ao mean P.6 mmHg ROSARIO(I,D): 2.0 cm2 Ao V2 VTI: 35.9 cm ROSARIO(V,D): 1.9 cm2 sev ratio: 0.48 ROSARIO indexed to BSA (cm^2/m^2): 1.0 MV E max bjorn: 62.2 cm/sec TR max bjorn: 300.8 cm/sec MV A max bjorn: 20.2 cm/sec TR max P.2 mmHg MV E/A: 3.1 PA V2 max: 63.7 cm/sec MV dec time: 0.30 sec PA V2 mean: 45.9 cm/sec PA mean P.91 mmHg SV(LVOT): 73.0 ml Reading Physician:11:42 AM
== END ==
LOC: ECHO 13:43
PROVIDERS: PCP Family Medicine; Referring Provider Internal Medicine Cardiovascular Disease; Visit Provider Internal Medicine Cardiovascular Disease
DX: I08.3 Combined rheumatic disorders of mitral, aortic and tricuspid valves (principal); I77.810 Thoracic aortic ectasia; I77.89 Other specified disorders of arteries and arterioles; I42.9 Cardiomyopathy, unspecified
CPT/HCPCS: 93306

== ENCOUNTER → 2025-05-06 15:39 | Outpatient (CLI) | payer MEDICARE, SELFPAY ==
[2025-04-05 08:12] VITALS: BMI 28.3
[2025-05-06 17:03] LABS: Hematocrit 47.4 % (41-53); Hemoglobin 15.9 g/dL (13.5-17.5); Mean Corpuscular HGB Conc 33.6 % (30-36); Mean Corpuscular Hemoglobin 31.9 PG (26-34); Mean Corpuscular Volume 94.8 fL (80-100); Platelet Count 237 X10^3/uL (150-400)
[2025-05-06 17:19] LABS: Blood Urea Nitrogen 23 mg/dL (9-20); Calcium 9.4 mg/dL (8.4-10.2); Carbon Dioxide 25 mmol/L (22-32); Chloride 103 mmol/L (98-107); Cholesterol 190 mg/dL (140-199); Creatine Kinase 103 U/L (55-170); Estimated Glomerular Filt Rate 56 mL/min (>60); Glucose 93 mg/dL (70-99); HDL Cholesterol 89 mg/dL (40-60); HEMOLYSIS < 15 (0-50); Potassium 4.7 mmol/L (3.4-5.1); Sodium 135 mmol/L (137-145); Triglycerides 69 mg/dL (35-150)
[2025-05-06 17:31] LABS: NT-proBNP (BNP-Adult 18+) 3560 pg/mL (<450); Troponin I 0.070 ng/mL (0.01-0.034)
== END ==
PROVIDERS: PCP Family Medicine; Referring Provider Internal Medicine Cardiovascular Disease; Visit Provider Internal Medicine Cardiovascular Disease
DX: E78.5 Hyperlipidemia, unspecified (principal); E85.4 Organ-limited amyloidosis; I42.9 Cardiomyopathy, unspecified
CPT/HCPCS: 36415; 80048; 80061; 82550; 83880; 84484; 85027

== ENCOUNTER 2025-07-09 08:05 | Outpatient (CLI) | payer MEDICARE, SELFPAY ==
[2025-04-05 08:12] VITALS: BMI 28.3
[2025-07-09] VITALS (9 sets, daily range): BP systolic 112–135; BP diastolic 69–80; PULSE 52–61; RESP 11–16; TEMP 36.2; O2SAT 94–99
[2025-07-09] MEDS: MIDAZOLAM 2 MG/2 ML VIAL IV (09:30)
[2025-07-09] MEDS: BETAMETHASONE 30 MG/5 ML MDV 12 MG INJ (09:36)
[2025-07-09] MEDS: LIDOCAINE 1% 20 ML INJ (09:37)
[2025-07-09] MEDS: BETAMETHASONE 30 MG/5 ML MDV 6 MG INJ (09:38)
--- NOTE | 2025-07-09 09:52 | PM.PROC.IR.1 ---
Date/Time/Diagnoses Date of procedure: 07/09/25 Time of procedure: 09:52 Pre-procedure diagnosis: 1. FORAMINAL STENOSIS WITH LE SYMPTOMS Procedure Notes Procedure: 1. FLUOROSCOPICALLY GUIDED CONTRAST CONTROLLED TRANSFORAMINAL EPIDURAL STEROID INJECTION - BILATERAL L4/5 TFESI Indications: Sherwin is referred by Dr. Wadsworth for treatment of Foraminal Stenosis with bilateral LE Symptoms Physician: Brain Hernandez Total Fluoroscopy time (seconds): 8 Total sedation minutes: 18 Complications: none Procedure in detail & Post-procedure care: FINDINGS Foraminal Nerve Root Compression secondary to disc disease and facet hypertrophy DESCRIPTION OF PROCEDURE Following review of allergy and review of potential side effects and complications, including, but not necessarily limited to, infection, allergic reaction, local tissue breakdown, stroke, temporary or permanent nerve injury, paralysis, and possible , the patient indicated that the patient understood and agreed to proceed. An informed consent document was signed by the patient, witnessed by a nurse, and placed in the patient's chart. Additionally, other treatment options including medications, modalities, and physical therapy were reviewed with the patient. After review of previous anaesthesic history and IV conscious sedation the patient was deemed safe to proceed with today?s procedure with IV conscious sedation as ASA class II designation. Safety time-out was performed to confirm patient ID, procedure to be performed and site of procedure. IV sedation was accomplished with a combination of 2mg of Versed was administered by the RN after DO order, titrated to patient comfort during the course of the procedure while the patient remained responsive to all verbal commands In the prone position following sterile prep and drape of the lumbar region, the right L4/5 posterior neuroforamen was identified fluoroscopically. The skin was anesthetized via a 25-gauge 1.5-inch needle with 1% lidocaine solution. At this point, a 25-gauge 3.5-inch spinal needle was atraumatically introduced and advanced under fluoroscopic guidance through the posterior right L4/5 neuroforamen to approximately the anterior aspect of the canal. Depth was confirmed on lateral view. Following negative aspiration, injection of approximately 1.5cc of Isovue 200 under live fluoroscopy in the AP view confirmed excellent flow along the nerve root, into the epidural space without vascular or intrathecal uptake observed Radiological data, including multiple fluoroscopic views of the lumbosacral spine, reveal a spinal needle at the right L4/5 posterior neuroforamen. Subsequent views show flow of contrast material flowing superiorly and inferiorly along the nerve root confirming epidural flow. Subsequently, a test dose of 1.5cc of 1% lidocaine solution was administered and patient was observed for two minutes for signs or symptoms of complications, including abdominal pain, shortness of breath, bilateral upper or lower extremity weakness, nausea and vomiting, prior to steroid injection. At this point, a total of 2cc or 10mg of dexamethasone and 6mg betamethasone was injected without incident. Attention was then refocused to the left L4/5 level where the identical procedure was replicated. The procedure tolerated the procedure well without signs or symptoms of complications prior to transfer to the recovery area continued monitoring without incident. The patient was then transferred to the recovery area where they were observed for an appropriate time after the injection. The patient reported a VAS score of 7 prior to the procedure and a post-procedure VAS of 0. POST OP INSTRUCTIONS The patient was provided a Pain Log to continue to record their response to the target-specific procedure prior to follow-up visit with their referring physician. Additionally, specific post-injection care instructions and a contact number to our office were provided if concerns arise regarding possible complications associated with the procedure are suspected.
== END 2025-07-09 10:05 | disposition home or self-care (01) ==
LOC: RAD 08:05
PROVIDERS: PCP Family Medicine; Referring Provider Family Medicine; Visit Provider Physical Medicine & Rehabilitation
DX: M48.061 Spinal stenosis, lumbar region without neurogenic claudication (principal); M51.16 Intervertebral disc disorders with radiculopathy, lumbar region; M47.26 Other spondylosis with radiculopathy, lumbar region
CPT/HCPCS: 64483; 99152; J0702; J1100; J2250

== ENCOUNTER → 2025-09-16 07:45 | Outpatient (CLI) | payer MEDICARE, SELFPAY ==
[2025-04-05 08:12] VITALS: BMI 28.3
[2025-09-16 08:30] LABS: Hematocrit 47.4 % (41-53); Hemoglobin 16.1 g/dL (13.5-17.5); Mean Corpuscular HGB Conc 34.0 % (30-36); Mean Corpuscular Hemoglobin 32.0 PG (26-34); Mean Corpuscular Volume 94.2 fL (80-100); Platelet Count 257 X10^3/uL (150-400)
[2025-09-16 08:43] LABS: Blood Urea Nitrogen 22 mg/dL (9-20); Calcium 9.4 mg/dL (8.4-10.2); Carbon Dioxide 28 mmol/L (22-32); Chloride 106 mmol/L (98-107); Creatine Kinase 84 U/L (55-170); Estimated Glomerular Filt Rate > 60 mL/min (>60); Glucose 94 mg/dL (70-99); HEMOLYSIS < 15 (0-50); Potassium 5.0 mmol/L (3.4-5.1); Sodium 139 mmol/L (137-145)
[2025-09-16 08:54] LABS: NT-proBNP (BNP-Adult 18+) 2210 pg/mL (<450)
[2025-09-16 09:27] LABS: Troponin I 0.161 ng/mL (0.01-0.034)
== END ==
PROVIDERS: PCP Family Medicine; Referring Provider Internal Medicine Cardiovascular Disease; Visit Provider Internal Medicine Cardiovascular Disease
DX: E85.4 Organ-limited amyloidosis (principal); I43 Cardiomyopathy in diseases classified elsewhere; I42.9 Cardiomyopathy, unspecified
CPT/HCPCS: 36415; 80048; 82550; 83880; 84484; 85027